=== PATIENT | male | born 2000 | race Caucasian/White ===

== ENCOUNTER 2023-04-06 16:17 | Inpatient (IN) | payer OTHER, SELFPAY ==
[2023-04-06 16:27] VITALS: BP 153/91; PULSE 116; RESP 18; TEMP 37.3; O2SAT 99; BMI 20.1
--- NOTE | 2023-04-06 16:41 | CT_ITS ---
The [address] [address] Patient Name: AMANDEEP MARTÍNEZ MRN: [id number] date: 2000 Sex: M Assigned Patient Location: ER Current Patient Location: ED.MAIN Accession/Order Number: [id number] Exam Date: 04/06/2023 18:02 Report Date: 04/06/2023 19:31 At the request of: DORINDA FIELD Procedure: CT abdomen pelvis w con EXAM: CT SCAN ABDOMEN AND PELVIS WITH IV CONTRAST DATE: 04/06/2023 6:02 PM EDT HISTORY: rectal abscess in a 22-year-old male with swelling and pain in his rectum towards the right side for the past 3 days. COMPARISON: CT dated 07/11/2020. TECHNIQUE: CT examination of the abdomen and pelvis was performed following the intravenous administration of IV contrast. CT dose lowering techniques were used, to include: automated exposure control, adjustment for patient size, and/or use of iterative reconstruction. Contrast: 100 ml Omnipaque 300 FINDINGS: Medical Front Desk Specialist/ Lines and Tubes: Two-view gold wheel blocker and polisher demonstrates a nonobstructive bowel gas pattern with further evaluation limited due to gold wheel blocker and polisher technique Lower Chest: Normal Free Air: None. Liver: Normal Gallbladder: Normal Common Bile Duct: Normal Pancreas: Normal Spleen: Normal Adrenal Glands: Right: Normal Left: Normal Kidneys: Right Kidney: Normal. Right Ureter: Normal. Left Kidney: Normal. Left Ureter: Normal. GI Tract: Distal esophagus in FOV: Normal. Stomach: Decompressed Small Bowel: Normal Appendix: Normal on coronal image 23 Large Bowel: Normal Mesentery/Peritoneum: Subcentimeter lymph nodes are seen in the mesentery. Vasculature: Aorta: Normal. IVC: Normal. Ernesto Vein: Normal. Retroperitoneum: Subcentimeter lymph nodes Abdominal/Pelvic Wall: There is a complex fluid collection with minimal rim enhancement seen within the right medial peroneum soft tissues that measures 65 mm x 93 mm x 107 mm Bladder: Within normal limits for the amount of distention. Reproductive: Prostate measures within normal with prominent vessels Musculoskeletal: Normal Free Fluid: None. CT/CT abdomen pelvis w con IMPRESSION: Complex fluid collection within the soft tissues of the right medial peroneum concerning for abscess. No subcutaneous air. However, developing Barak's disease not excluded. Surgical consultation recommended. Electronically authenticated by: JLUIS DIAS Date: 04/06/2023 19:31
--- NOTE | 2023-04-06 16:47 | PC.NURSE ---
Area next to rectum appears like a abscess. Pt c/o pain to this area. DR assessment complete with RN DO at bedside
[2023-04-06 16:55] LABS: Basophils Percent Auto 0.2 % (0.2-2.0); Eosinophils Percent Auto 0.2 % (0.9-7.0); Hematocrit 44.9 % (42.0-54.0); Hemoglobin 14.7 g/dL (14.0-18.0); Immature Granulocytes Abs Auto 0.08 10^3/uL (0.00-0.03); Immature Granulocytes Pct Auto 0.5 % (0.0-0.5); Lymphocytes Absolute Auto 1.2 10^3/uL (1.2-3.8); Lymphocytes Percent Auto 6.8 % (20.5-60.0); Mean Corpuscular HGB Conc 32.7 g/dL (29.9-35.2); Mean Corpuscular Hemoglobin 28.3 pg (25.9-34.0); Mean Corpuscular Volume 86.5 fL (80.0-94.0); Mean Platelet Volume 9.8 fL (9.5-13.5); Monocytes Absolute Auto 1.5 10^3/uL (0.3-0.8); Monocytes Percent Auto 8.2 % (1.7-12.0); Neutrophils Absolute Auto 14.9 10^3/uL (1.4-6.5); Neutrophils Percent Auto 84.1 % (43.0-75.0); Platelet Count 400 10^3/uL (150-450); Red Blood Count 5.19 10^6/uL (4.70-6.10); Red Cell Distribution Width 13.2 % (11.0-15.0); White Blood Count 17.7 10^3/uL (4.0-11.0)
[2023-04-06 17:07] LABS: INR 1.16; Prothrombin Time 12.2 sec (9.0-11.6)
[2023-04-06 17:08] LABS: Alanine Aminotransferase 20 U/L (16-63); Albumin Globulin Ratio 0.7; Albumin Level 3.5 g/dL (3.4-5.0); Alkaline Phosphatase 74 U/L (46-116); Anion Gap 13.3; Aspartate Amino Transferase 8 U/L (15-37); Bilirubin Total 0.8 mg/dL (0.2-1.0); Calcium 9.4 mg/dL (8.5-10.1); Carbon Dioxide 28.2 mmol/L (21.0-32.0); Chloride 99 mmol/L (98-107); Estimated GFR (African America >60 (>=60); Estimated GFR (Non-African Ame >60 (>=60); Glucose 109 mg/dL (74-106); Potassium 3.5 mmol/L (3.5-5.1); Sodium 137 mmol/L (136-145); Total Protein 8.5 g/dL (6.4-8.2)
[2023-04-06 17:11] LABS: Lactate/Lactic Acid 1.5 mmol/L (0.4-2.0)
[2023-04-06] MEDS: FAMOTIDINE/PF 20 MG/2 ML VIAL IV (17:22)
[2023-04-06] MEDS: KETOROLAC TROMETHAMINE 30 MG/ML VIAL IVP (17:22)
[2023-04-06] MEDS: 0.9 % SODIUM CHLORIDE 1,000 ML 1000 ML IV (17:22)
--- NOTE | 2023-04-06 17:22 | ED.SKABFB1 ---
HPI - Skin/Abscess/Foreign Bdy General Chief complaint: Skin/Abscess/Foreign Body Stated complaint: Rectal Bleed Time Seen by Provider: 04/06/23 16:33 Source: patient Mode of arrival: walk-in Limitations: no limitations History of Present Illness HPI narrative: Coming to the ER with a abscess to his right buttock area that been going on at least for the last few days it was noted that the patient initially presented with a rectal bleeding after having a bowel movement today although he mentioned he was not straining The patient mentioned that this pain has been going on at least for few days mostly the last Saturday which is more than a week And he also mentioned that there was no fever or chills but he did not eat all day because he does not feel like eating he also mentioned that he denies any abdominal pain nausea vomiting The patient have a history of hemorrhoids Related Data Home Medications Medication Instructions Recorded Confirmed No Known Home Medications 04/06/23 04/06/23 Allergies Allergy/AdvReac Type Severity Reaction Status Date / Time No Known Drug Allergies Allergy Verified 04/06/23 16:33 Review of Systems ROS Status of ROS 10 or more systems reviewed and unremarkable except as noted in history and below [facility] Social History Smoking status: Current every day smoker Exam Narrative Exam Narrative: Nurses notes and vital signs reviewed and patient is not hypoxic. General: Well-appearing and in no apparent distress. Skin: Warm, dry, no pallor noted. No rash. Head: Normocephalic, atraumatic. Neck: Supple, non-tender. Eye: Pupils are equal, round and EOMI. No scleral icterus. Ears, Nose, Mouth, and Throat: TM are clear, no nasal mucosal hypertrophy. Oral mucosa is moist, no posterior oropharynx erythema, uvula is mid-line Cardiovascular: Regular Rate and Rhythm without murmur, gallop or rub. Respiratory: No accessory muscle use or respiratory distress. Lungs are clear to auscultation, no wheezing, rales or rhonchi Chest Wall: no tenderness Back: No midline thoracic or lumbar vertebral tenderness. No CVA tenderness Musculoskeletal: normal ROM, no calf or popliteal tenderness, no lower extremity edema/swelling GI: Abdomen is soft, non-distended. Normal bowel sounds. No masses appreciated. No tenderness to palpation. No rebound, guarding, or rigidity noted. The patient examination of the buttock area showed that he have a severe redness and induration of the right buttock area almost measuring 12 cm x 7 cm and the patient is very tender and there is induration there is no fluctuation that is suspected The patient rectal exam shows no bleeding and there is no tenderness upon rectal evaluation no induration Neurological: A&O x4. No cranial nerve dysfunction observed. No truncal ataxia. Moves all extremities. Sensation intact. Psychiatric: Cooperative and interactive. Normal mood and affect. Constitutional Vital Signs, click to edit/add: Last Vital Signs Temp 99.1 F 04/06/23 16:27 Pulse 116 H 04/06/23 16:27 Resp 18 04/06/23 16:27 BP 153/91 H 04/06/23 16:27 Pulse Ox 99 04/06/23 16:27 O2 Del Method Room Air 04/06/23 16:47 Course Vital Signs Vital signs: Vital Signs Temperature 99.1 F 04/06/23 16:27 Pulse Rate 116 H 04/06/23 16:27 Respiratory Rate 18 04/06/23 16:27 Blood Pressure 153/91 H 04/06/23 16:27 Pulse Oximetry 99 04/06/23 16:27 Temperature 99.1 F 04/06/23 16:27 Pulse Rate 116 H 04/06/23 16:27 Respiratory Rate 18 04/06/23 16:27 Blood Pressure 153/91 H 04/06/23 16:27 Pulse Oximetry 99 04/06/23 16:27 Oxygen Delivery Method Room Air 04/06/23 16:47 MDM - Skin/Abscess/Foreign Bdy MDM Narrative Medical decision making narrative: The patient CBC shows leukocytosis he had Zosyn started and his chemistry was within normal his lactic acid is not elevated initially the patient did not want the IV but I convinced him that he is can need an IV antibiotic and he agreed the patient also was provided with Toradol On examination of the buttock area I could not feel any fluctuation that need to be drained and the patient definitely have infection of the area and cellulitis but the CAT scan was obtained to see how deep or there is any fluid collection that need to be drained pt care was transferred to dr Nina awaiting Ct result pt provided with Zosyn in ED and Toradol Lab Data Labs: Lab Results 04/06/23 Range/Units 16:48 WBC 17.7 H (4.0-11.0) 10^3/uL RBC 5.19 (4.70-6.10) 10^6/uL Hgb 14.7 (14.0-18.0) g/dL Hct 44.9 (42.0-54.0) % MCV 86.5 (80.0-94.0) fL MCH 28.3 (25.9-34.0) pg MCHC 32.7 (29.9-35.2) g/dL RDW 13.2 (11.0-15.0) % Plt Count 400 (150-450) 10^3/uL MPV 9.8 (9.5-13.5) fL Neut % (Auto) 84.1 H (43.0-75.0) % Lymph % (Auto) 6.8 L (20.5-60.0) % [place] % (Auto) 8.2 (1.7-12.0) % Eos % (Auto) 0.2 L (0.9-7.0) % Baso % (Auto) 0.2 (0.2-2.0) % Neut # (Auto) 14.9 H (1.4-6.5) 10^3/uL Lymph # (Auto) 1.2 (1.2-3.8) 10^3/uL [place] # (Auto) 1.5 H (0.3-0.8) 10^3/uL Eos # (Auto) 0.0 (0.0-0.7) 10^3/uL Baso # (Auto) 0.0 (0.0-0.1) 10^3/uL Abs Immat Gran (auto) 0.08 H (0.00-0.03) 10^3/uL Imm/Tot Granulo (auto) 0.5 (0.0-0.5) % PT 12.2 H (9.0-11.6) sec INR 1.16 Sodium 137 (136-145) mmol/L Potassium 3.5 (3.5-5.1) mmol/L Chloride 99 (98-107) mmol/L Carbon Dioxide 28.2 (21.0-32.0) mmol/L Anion Gap 13.3 BUN 16.0 (7.0-18.0) mg/dL Creatinine 1.14 (0.70-1.30) mg/dL Est GFR ( Amer) >60 (>=60) Est GFR (Non-Af Amer) >60 (>=60) BUN/Creatinine Ratio 14.0 Glucose 109 H (74-106) mg/dL Lactate 1.5 (0.4-2.0) mmol/L Calcium 9.4 (8.5-10.1) mg/dL Total Bilirubin 0.8 (0.2-1.0) mg/dL AST 8 L (15-37) U/L ALT 20 (16-63) U/L Alkaline Phosphatase 74 (46-116) U/L Total Protein 8.5 H (6.4-8.2) g/dL Albumin 3.5 (3.4-5.0) g/dL Globulin 5.0 g/dL Albumin/Globulin Ratio 0.7 Acetaminophen <2.0 L (10.0-30.0) ug/mL Discharge Plan Discharge Patient Disposition: Still a Patient
[2023-04-06 17:34] LABS: Acetaminophen <2.0 ug/mL (10.0-30.0)
[2023-04-06] MEDS: PIPERACILLIN SODIUM/TAZOBACTAM 3.375 GM in 0.9 % SODIUM CHLORIDE 50 ML IV (18:20)
[2023-04-06 18:53] VITALS: BP 148/74; PULSE 89; RESP 16; O2SAT 99
[2023-04-06] MEDS: KETOROLAC TROMETHAMINE 30 MG/ML VIAL 15 MG IVP (20:56)
[2023-04-06] MEDS: ONDANSETRON PF 4 MG/2 ML VIAL IV (20:56)
[2023-04-06] MEDS: MORPHINE SULFATE 4 MG/ML VIAL IV (20:57)
[2023-04-06 21:42] VITALS: BP 131/78; PULSE 76; PULSE 84; RESP 16; RESP 18; TEMP 36.8; O2SAT 96; O2SAT 97; BMI 21.0
[2023-04-07] VITALS (17 sets, daily range): BP systolic 106–142; BP diastolic 61–94; PULSE 59–105; RESP 11–21; TEMP 36.6–37.1; O2SAT 96–100
--- NOTE | 2023-04-07 | W.PM.TELEPN ---
Progress Note: Subjective Subjective Interval history: CC: Perirectal abscess HPI: This is a very pleasant 22 years old male who presents with above complaints. Patient stating that over the course of the last 10 days he felt some bulging and discomfort in his perineal area. He thought its hemorrhoid which he had in the past. He tried to use Preparation H and Anusol cream/suppository without much relief. Patient did mention her with some chills. Minimal amount of blood with the bowel movements which he attributed to hemorrhoids . Patient endorses diagnosis of Crohn's disease few years ago. Never took any medications for that. Evaluation in the emergency room revealed a large (9 cm) perirectal abscess. Dr. Lauren, consulted and planning to perform I and D in the morning. Exam Narrative Exam Narrative: ROS: 1.General: no fever, chills, not in distress 2.HEENT: no MCBRIDE, no blurry vision, no swallow problems, no nasal congestion, no sore throat 3.Pulmonary: no cough, SOB, wheezes 4.CVS: no CP, no palpitations, no GIPSON, no SOB, no intermittent claudication 5.GI: no nausea, vomiting or diarrhea, no abdominal pain, no constipation, no hematemesis or hematochezia 6.: no renal colic, no hematuria, urinary frequency or urgency 7.Extremities: no edema 8.Neurological: no dizziness, vertigo, double or blurry vision, no no focal weakness, no paresthesia, no swallow or speech problems 9.Musculosceletal: no joint pains, no joint swelling, no back pain 10.Dermatological: no skin rashes, no lesions, no pruritus 11.Hematological: no bleeding, no hx/o clots 12.Endocrinological: no heat/cold intolerance, no hx/o diabetes 13.Psychiatric: no suicidal or homicidal thoughts Physical Exam: Not in distress, pleasant, lucid, cooperative, Head - atraumatic, eyes - pupils equal, round, reactive to light, extra ocular movement intact, MMM Neck - supple, thyroid not enlarged, LN not palpated Lungs - clear to auscultation, no dullness on percussion CVS - heart sounds S1, S2, no additional murmurs gallop, regular rate and rhythm Gastrointestinal?abdomen is soft, non-tender, non-distended, no organomegaly, positive bowel sounds Extremities no clubbing, cyanosis or edema Neurological?cranial nerve II?XII grossly intact, no meningeal signs, no cerebellar signs, no sensory deficit Musculoskeletal - joints, no effusions, ROM preserved Dermatological - the skin dry, warm, no rashes Psychiatric?patient is AAO X3, patient has normal affect Constitutional Vital Signs, click to edit/add: Last Vital Signs Temp 98.3 F 04/06/23 21:42 Pulse 84 04/06/23 21:42 Resp 18 04/06/23 21:42 BP 131/78 04/06/23 21:42 Pulse Ox 97 04/06/23 21:42 O2 Del Method Room Air 04/06/23 21:42 Progress Note: Objective Labs Labs: Short CBC 04/06/23 Range/Units 16:48 WBC 17.7 H (4.0-11.0) 10^3/uL Hgb 14.7 (14.0-18.0) g/dL Hct 44.9 (42.0-54.0) % Plt Count 400 (150-450) 10^3/uL BMP 04/06/23 16:48 Sodium 137 Potassium 3.5 Chloride 99 Carbon Dioxide 28.2 BUN 16.0 Creatinine 1.14 Glucose 109 H Calcium 9.4 Liver Function 04/06/23 Range/Units 16:48 Total Bilirubin 0.8 (0.2-1.0) mg/dL AST 8 L (15-37) U/L ALT 20 (16-63) U/L Alkaline Phosphatase 74 (46-116) U/L Albumin 3.5 (3.4-5.0) g/dL Progress Note: A&P Assessment and Plan (1) Perirectal abscess: Assessment and Plan: At mid to medical floor Continue Zosyn Symptoms controlled Going to keep n.p.o. past midnight for upcoming surgical procedure by Dr. Lauren (consulted by emergency room) (2) Crohn's disease: Assessment and Plan: History of Crohn's disease?diagnosed few years ago, never been treated. Suspect current perirectal abscess related to Crohn's. Patient can benefit from referral to cuff setter overlock to establish proper treatment plan Plan END: As the provider for the telehealth service, I attest that I introduced myself to the patient, provided my credentials, disclosed by location and determined that based on a review of the patient's chart and discussion with members of the patient's treatment team, telemedicine via real-time, 2 way, and interactive audio and video platform is an appropriate and effective means of providing the service. ?The patient and I mutually agree this visit is appropriate for telemedicine. ?The virtual encounter was taken place from? [place], [place]. ?The encounter took approximately 35 minutes. ?The nurse was present during the entire time and I was able to move the stethoscope in appropriate directions. ?The patient was evaluated at the Hospital ? Portions of this note may be dictated using true[employer] voice recognition software. Variances in spelling and vocabulary are possible and unintentional. Not all errors may be caught and/or corrected. Please notify the author if any discrepancies are noted and/or if the meaning of any statement is unclear.? ? Patient verbally consented for treatment via video visit with patient currently located at the [facility] and provider located in [place]. Telemedicine Attestation Telemedicine Attestation I conducted this encounter from [facility]] via secure live, [id number] video conference with the patient, located at [facility] with [perirectal abscess]. Prior to the interview, the risks and benefits of telemedicine were discussed with the patient and verbal consent was obtained.
[2023-04-07] MEDS: 0.9 % SODIUM CHLORIDE 1,000 ML 100 ML IV (01:18)
[2023-04-07] MEDS: PIPERACILLIN SODIUM/TAZOBACTAM 3.375 GM in 0.9 % SODIUM CHLORIDE 50 ML IV ×3 (04:28→18:43)
[2023-04-07] MEDS: MORPHINE SULFATE 2 MG/ML SYRINGE IV (04:28)
[2023-04-07 05:30] LABS: Basophils Percent Auto 0.2 % (0.2-2.0); Eosinophils Absolute Auto 0.1 10^3/uL (0.0-0.7); Eosinophils Percent Auto 0.3 % (0.9-7.0); Hematocrit 40.7 % (42.0-54.0); Hemoglobin 13.2 g/dL (14.0-18.0); Immature Granulocytes Abs Auto 0.08 10^3/uL (0.00-0.03); Immature Granulocytes Pct Auto 0.5 % (0.0-0.5); Lymphocytes Absolute Auto 0.9 10^3/uL (1.2-3.8); Lymphocytes Percent Auto 5.1 % (20.5-60.0); Mean Corpuscular HGB Conc 32.4 g/dL (29.9-35.2); Mean Corpuscular Hemoglobin 28.6 pg (25.9-34.0); Mean Corpuscular Volume 88.1 fL (80.0-94.0); Mean Platelet Volume 10.3 fL (9.5-13.5); Monocytes Absolute Auto 1.6 10^3/uL (0.3-0.8); Monocytes Percent Auto 9.1 % (1.7-12.0); Neutrophils Absolute Auto 14.4 10^3/uL (1.4-6.5); Neutrophils Percent Auto 84.8 % (43.0-75.0); Platelet Count 360 10^3/uL (150-450); Red Blood Count 4.62 10^6/uL (4.70-6.10); Red Cell Distribution Width 13.3 % (11.0-15.0)
[2023-04-07 05:38] LABS: Anion Gap 12.6; BUN Creatinine Ratio 16.2; Calcium 9.3 mg/dL (8.5-10.1); Chloride 98 mmol/L (98-107); Estimated GFR (African America >60 (>=60); Estimated GFR (Non-African Ame >60 (>=60); Glucose 99 mg/dL (74-106); Potassium 3.6 mmol/L (3.5-5.1); Sodium 133 mmol/L (136-145)
[2023-04-07 05:53] LABS: Partial Thromboplastin Time 33.3 sec (22.3-36.2); Prothrombin Time 11.6 sec (9.0-11.6)
--- NOTE | 2023-04-07 07:34 | PM.GSCN ---
History of Present Illness Consult details Consult date: 04/07/23 Reason for consult: other (Perirectal abscess) Requesting physician: Chuy Nina Narrative: Patient is a 22-year-old otherwise healthy young white male, who is seen in consultation at the request of the emergency department physician Dr. Chuy Nina, and the attending hospitalist Dr. Shaikh Mejia. Consultation is requested for surgical evaluation and management of an acute perirectal abscess. The patient is seen in surgical consultation at 0645 hrs. 04/07/2023. In the course of consultation, the patient's electronic medical record is comprehensively reviewed. The patient is interviewed and examined. The results of all available laboratory tests are reviewed and noted. A diagnostic contrast-enhanced CT scan examination of the abdomen and pelvis is personally viewed and interpreted. According to the patient, he was given a diagnosis of Crohn's disease following a colonoscopic examination back in 2019. At that time, he was seen by a director of graduate medical education and placed on suppressive therapy. By the patient's report, he has been off of medication now for the past 1.5 years and doing well without any significant flareups. Approximately 10 to 12 days ago, the patient developed some right-sided perianal discomfort followed by soft tissue swelling along the medial aspect of his right buttock. Initially, the patient thought that this process was due to a 'hemorrhoid'. The patient attempted to self treat with Anusol and Preparation H, without relief. Through the past week, the patient has experienced worsening pain and soft tissue swelling. He denies any associated fever or chills. Throughout the course of this illness, patient has been able to maintain dietary intake. He states that his bowels have been moving regularly and that he has not had any issues with diarrhea or loose stools. Patient reports no melena or gross hematochezia. He has seen some streaks of blood on the toilet tissue however when he wipes. Patient denies any issues with urinary retention. He reports no dysuria, hematuria, urgency, or urinary frequency. With progression of symptoms, the patient presented to the emergency department at [facility], on the evening of 04/06/2023. The patient was seen and evaluated by Dr. Dorinda Field and Dr. Chuy Nina. Examination revealed a large, softball sized, fluctuant abscess with associated cellulitis, along the medial aspect of the right gluteus. The patient was found to have a low-grade fever. White blood cell count returned elevated at 17,700 with a left shift in the white cell differential. Diagnostic contrast-enhanced CT scan examination of the abdomen and pelvis 04/06/2023, shows a complex fluid collection with minimal rim enhancement involving the medial aspect of the perineum and gluteus on the right. The fluid collection measures 6.5 cm x 9.3 cm x 10.7 cm. There is no subcutaneous air, or any gas seen dissecting along the fascial planes of the perineum, gluteus, or ventral abdominal wall. There is no evidence of scrotal involvement. The bladder does not appear overly distended. There is no free fluid within the pelvis. Clinically, this patient enjoys good health. Aside from this apparent diagnosis of Crohn's disease back in 2019, there are no chronic medical conditions for which this patient is being treated. Patient is not allergic to any known medications. He does not take any prescription medications. The patient is a current everyday cigarette smoker. There is no history of drug or alcohol abuse. Aside from the colonoscopy in 2019, this patient has not had any other prior surgical procedures. Review of Systems ROS Narrative 12 point review of systems is negative or otherwise noncontributory to the problem under evaluation separate as documented in the [facility] [place] Medical History Crohn's disease ?K50.90 - Crohn's disease, unspecified, without complications (ICD-10) Family History Grandmother Family history of myocardial infarction Social History Smoking status: Current every day smoker Do you use any of these nicotine containing products: vaping products Non-prescribed substance use: cannabis (any form) Previous occupational history: [employer] Highest level of school completed/degree received: high school graduate Are you now , , , , never or living with a partner: never In a typical week, how many times do you talk on the telephone with family, friends, or neighbors: 3 or more times per week How often do you get together with friends or relatives: 3 or more times per week How often do you attend mormonism or moravian services: never Do you belong to any clubs or organizations such as mormonism groups unions, fraternal or athletic groups, or school groups: no Total score: 1 Score interpretation: A score of less than or equal to 1 indicates the most socially isolated. Little interest or pleasure in doing things: several days Feeling down, depressed, or hopeless: several days Feel stressed/tense/nervous/anxious/difficulty sleeping: rather much Life stressors: recent of family or friend Life stressor details: loss of step dad, mom, grandparent since 2018 Do you think of yourself as: straight/heterosexual Gender Identity: male Meds Home Medications and Allergies Home Medications Medication Instructions Recorded Confirmed Type No Known Home Medications 04/06/23 04/06/23 History Allergies Allergy/AdvReac Type Severity Reaction Status Date / Time No Known Drug Allergies Allergy Verified 04/06/23 16:33 Exam Constitutional Vital Signs, click to edit/add: Last Vital Signs Temp 98.5 F 04/07/23 05:33 Pulse 93 H 04/07/23 05:33 Resp 18 04/07/23 05:33 BP 106/66 04/07/23 05:33 Pulse Ox 96 04/07/23 05:33 O2 Del Method Room Air 04/07/23 05:33 Other: Well-developed, well-nourished, otherwise healthy young white male. The patient is seen lying in a hospital bed on his left side, in obvious right-sided gluteal and perineal distress. HENMT Other: Head normocephalic and atraumatic. Pupils equally round and reactive to light. Extraocular movements intact. Nasal and oropharynx are clear without erythema or exudate. Mucous membranes are moist. There are no oral or pharyngeal mass lesions. Neck & C-Spine Other: Trachea midline. Carotid pulses 2+ bilaterally. No thyromegaly. No jugular venous distention. Chest Other: Unlabored respirations. Equal chest wall expansion bilaterally. Lungs are clear to auscultation bilaterally without rales, wheezes, or rhonchi. Cardio Other: Heart regular rate and rhythm. Normal S1 and S2. No murmur. GI Other: The abdomen is scaphoid and soft. There is no distention or tympany. No hepatosplenomegaly is detected. An intra-abdominal mass is not appreciated. No pain or tenderness is elicited on palpation in any quadrant. The patient does not guard. There is no rebound tenderness. Flanks are nontender. There is no evidence of ventral wall hernia. Other: Normal male external genitalia. Examination of the gluteal and perineal region shows marked soft tissue swelling and induration of the perineum and medial aspect of the gluteus, to the right of the midline. The skin overlying this area exhibits marked erythema with associated cellulitis. The underlying abscess is fluctuant and exquisitely tender. The dimensions of the abscess correlate with the CT description. And is intact over the abscess and there is no evidence of spontaneous drainage or rupture. No crepitus or subcutaneous emphysema is identified. The scrotum is uninvolved. At present, the patient is unable to tolerate a digital rectal examination, and this evaluation will be performed under anesthesia. Extremity Other: Normal range of motion in all extremities x4. No clubbing, cyanosis, or dependent lower extremity edema. Neuro Other: Alert and oriented to time, place, and person. Neurologic status is grossly intact and without obvious focal deficits. Psych Other: Pleasant and conversant. Normal mood and affect. Good insight and understanding. Results Labs Labs: Abnormal lab results 04/06/23 04/06/23 Range/Units 04:04 16:48 WBC 17.0 H 17.7 H (4.0-11.0) 10^3/uL RBC 4.62 L (4.70-6.10) 10^6/uL Hgb 13.2 L (14.0-18.0) g/dL Hct 40.7 L (42.0-54.0) % Neut % (Auto) 84.8 H 84.1 H (43.0-75.0) % Lymph % (Auto) 5.1 L 6.8 L (20.5-60.0) % Eos % (Auto) 0.3 L 0.2 L (0.9-7.0) % Neut # (Auto) 14.4 H 14.9 H (1.4-6.5) 10^3/uL Lymph # (Auto) 0.9 L (1.2-3.8) 10^3/uL [place] # (Auto) 1.6 H 1.5 H (0.3-0.8) 10^3/uL Abs Immat Gran (auto) 0.08 H 0.08 H (0.00-0.03) 10^3/uL PT 12.2 H (9.0-11.6) sec Sodium 133 L (136-145) mmol/L BUN 19.0 H (7.0-18.0) mg/dL Glucose 109 H (74-106) mg/dL AST 8 L (15-37) U/L Total Protein 8.5 H (6.4-8.2) g/dL Acetaminophen <2.0 L (10.0-30.0) ug/mL Diabetes panel 04/06/23 04/06/23 Range/Units 04:04 16:48 Sodium 133 L 137 (136-145) mmol/L Potassium 3.6 3.5 (3.5-5.1) mmol/L Chloride 98 99 (98-107) mmol/L Carbon Dioxide 26.0 28.2 (21.0-32.0) mmol/L BUN 19.0 H 16.0 (7.0-18.0) mg/dL Creatinine 1.17 1.14 (0.70-1.30) mg/dL Glucose 99 109 H (74-106) mg/dL Calcium 9.3 9.4 (8.5-10.1) mg/dL AST 8 L (15-37) U/L ALT 20 (16-63) U/L Alkaline Phosphatase 74 (46-116) U/L Total Protein 8.5 H (6.4-8.2) g/dL Albumin 3.5 (3.4-5.0) g/dL Calcium panel 04/06/23 04/06/23 Range/Units 04:04 16:48 Calcium 9.3 9.4 (8.5-10.1) mg/dL Albumin 3.5 (3.4-5.0) g/dL Pituitary panel 04/06/23 04/06/23 Range/Units 04:04 16:48 Sodium 133 L 137 (136-145) mmol/L Potassium 3.6 3.5 (3.5-5.1) mmol/L Chloride 98 99 (98-107) mmol/L Carbon Dioxide 26.0 28.2 (21.0-32.0) mmol/L BUN 19.0 H 16.0 (7.0-18.0) mg/dL Creatinine 1.17 1.14 (0.70-1.30) mg/dL Glucose 99 109 H (74-106) mg/dL Calcium 9.3 9.4 (8.5-10.1) mg/dL Adrenal panel 04/06/23 04/06/23 Range/Units 04:04 16:48 Sodium 133 L 137 (136-145) mmol/L Potassium 3.6 3.5 (3.5-5.1) mmol/L Chloride 98 99 (98-107) mmol/L Carbon Dioxide 26.0 28.2 (21.0-32.0) mmol/L BUN 19.0 H 16.0 (7.0-18.0) mg/dL Creatinine 1.17 1.14 (0.70-1.30) mg/dL Glucose 99 109 H (74-106) mg/dL Calcium 9.3 9.4 (8.5-10.1) mg/dL Total Bilirubin 0.8 (0.2-1.0) mg/dL AST 8 L (15-37) U/L ALT 20 (16-63) U/L Alkaline Phosphatase 74 (46-116) U/L Total Protein 8.5 H (6.4-8.2) g/dL Albumin 3.5 (3.4-5.0) g/dL All other labs normal. Imaging Abdomen CT scan report/results: report reviewed and image reviewed Additional studies: Patient: AMANDEEP MARTÍNEZ MR#: [id number] : 2000 Acct:[id number] Age/Sex: 22 / M ADM Date: 04/06/23 Loc: ER Attending Dr: Ordering Physician: Dorinda Field Date of Service: 04/06/23 Procedure(s): CT abdomen pelvis w con Accession Number(s): [id number] cc: Physician,Non-Staff María Elena~ The [address] [address] Patient Name: AMANDEEP MARTÍNEZ MRN: [id number] date: 2000 Sex: M Assigned Patient Location: ER Current Patient Location: ED.MAIN Accession/Order Number: [id number] Exam Date: 04/06/2023 18:02 Report Date: 04/06/2023 19:31 At the request of: DORINDA FIELD Procedure: CT abdomen pelvis w con EXAM: CT SCAN ABDOMEN AND PELVIS WITH IV CONTRAST DATE: 04/06/2023 6:02 PM EDT HISTORY: rectal abscess in a 22-year-old male with swelling and pain in his rectum towards the right side for the past 3 days. COMPARISON: CT dated 07/11/2020. TECHNIQUE: CT examination of the abdomen and pelvis was performed following the intravenous administration of IV contrast. CT dose lowering techniques were used, to include: automated exposure control, adjustment for patient size, and/or use of iterative reconstruction. 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 Liver: Normal Gallbladder: Normal Common Bile Duct: Normal Pancreas: Normal Spleen: Normal Adrenal Glands: Right: Normal Left: Normal Kidneys: Right Kidney: Normal. Right Ureter: Normal. Left Kidney: Normal. Left Ureter: Normal. GI Tract: Distal esophagus in FOV: Normal. Stomach: Decompressed Small Bowel: Normal Appendix: Normal on coronal image 23 Large Bowel: Normal Mesentery/Peritoneum: Subcentimeter lymph nodes are seen in the mesentery. Vasculature: Aorta: Normal. IVC: Normal. Ernesto Vein: Normal. Retroperitoneum: Subcentimeter lymph nodes Abdominal/Pelvic Wall: There is a complex fluid collection with minimal rim enhancement seen within the right medial peroneum soft tissues that measures 65 mm x 93 mm x 107 mm Bladder: Within normal limits for the amount of distention. Reproductive: Prostate measures within normal with prominent vessels Musculoskeletal: Normal Free Fluid: None. CT/CT abdomen pelvis w con IMPRESSION: Complex fluid collection within the soft tissues of the right medial peroneum concerning for abscess. No subcutaneous air. However, developing Barak's disease not excluded. Surgical consultation recommended. Electronically authenticated by: JLUIS DIAS Date: 04/06/2023 19:31 Assessment and Plan Assessment and Plan (1) Perirectal abscess: (2) Cellulitis of buttock, right: (3) Crohn's disease: Plan 1) Emergency incision and drainage of a perirectal abscess 04/07/2023 ? Hospital inpatient ? General endotracheal anesthesia 2) NPO / IV fluid hydration preoperatively 3) Continue IV Zosyn every 8 hours 4) Anticipate a 24 to 48-hour length of stay postoperatively for continued administration of IV antibiotics Discussion: The patient is counseled that his clinical presentation, physical examination, and supporting laboratory and CT scan findings, are all consistent with the diagnosis of an acute perirectal abscess. Although it is difficult to discern by CT whether the origin of this abscess is perirectal or strictly gluteal, the fact that this patient carries a diagnosis of regional enteritis of Crohn's favors a perirectal etiology. The patient is counseled that regardless of the source, he will need to reestablish care with his director of graduate medical education to determine whether or not his disease is active and whether he should be restarted on a no suppressive medication. Patient is advised that antibiotics alone are not sufficient treatment of this abscess, and that the abscess requires urgent incision and drainage. The indications, risks, benefits, and potential complications of incision and drainage of a perirectal abscess are reviewed in detail with the patient. The patient is counseled that if the origin of this abscess is perirectal and related to anorectal Crohn's, approximately 1/3-2/3 of patients undergoing I&D will develop a subsequent anorectal fistula, necessitating subsequent surgical intervention. The patient understands that primary management of this condition necessitates incision and drainage. Following drainage, time will determine the possible outcomes and whether or not additional intervention will be required. At the conclusion of this morning's consultation, the patient indicates his understanding of the proposed operative plan of management and request that we proceed as soon as possible with incision and drainage of the perirectal abscess. The on-call surgical team was notified of the need to proceed with this case on an emergency basis 04/07/2023. Once that team has been assembled the patient will be taken directly to the operative suite for incision and drainage of a perirectal abscess under general endotracheal anesthesia. I appreciate the opportunity to have seen this patient in consultation and to have the privilege of participating in his surgical care.
[2023-04-07] MEDS: HYDROMORPHONE HCL 0.5 MG/0.5 ML SYRINGE 0.4 MG IV (09:58)
[2023-04-07] MEDS: OXYCODONE HCL 5 MG TABLET PO (10:20)
--- NOTE | 2023-04-07 10:38 | PM.GSPRC ---
Date of procedure: 04/07/23 Indications for Procedure: Patient is a 22-year-old otherwise healthy young white male, who was seen in consultation surgical evaluation and management of an acute perirectal/ischiorectal abscess. According to the patient, he had been given a diagnosis of Crohn's disease following a colonoscopic examination back in 2019. At that time, he was seen by a swimming pool service technician and placed on suppressive therapy. By the patient's report, he discontinued his medication and has been off of treatment now for the past 1.5 years and doing well without any significant flare-ups. Approximately 10 to 12 days ago, the patient developed right-sided perianal discomfort followed by soft tissue swelling along the medial aspect of his right buttock. Initially, the patient thought that this process was due to a 'hemorrhoid'. The patient attempted to self treat with Anusol and Preparation H, without relief. Through the past week, the patient has experienced worsening pain and soft tissue swelling to the point where he is having difficulty both sitting and walking. He denies any associated fever or chills. Throughout the course of this illness, the patient has been able to maintain dietary intake. He states that his bowels have been moving regularly and that he has not had any issues with diarrhea or loose stools. The patient reports no melena or gross hematochezia but has been experiencing drainage of pus transanally with streaks of blood on the toilet tissue when he wipes. The patient denies any issues with urinary retention. He reports no dysuria, hematuria, urgency, or urinary frequency. With progression of symptoms, the patient presented to the emergency department at [facility], on the evening of 04/06/2023. Examination revealed a large, softball sized, fluctuant abscess with associated cellulitis along the perineum and medial aspect of the right gluteus, in proximity to the anus. The patient was found to have a low-grade fever. White blood cell count returned elevated at 17,700 with a left shift in the white cell differential. Diagnostic contrast-enhanced CT scan examination of the abdomen and pelvis 04/06/2023, shows a complex fluid collection with minimal rim enhancement involving the medial aspect of the perineum and gluteus on the right. The fluid collection measures 6.5 cm x 9.3 cm x 10.7 cm. There is no subcutaneous air, or any gas seen dissecting along the fascial planes of the perineum, gluteus, or ventral abdominal wall. There is no evidence of scrotal involvement. The bladder does not appear overly distended. There is no free fluid within the pelvis. Clinically, this patient enjoys good health. Aside from this apparent diagnosis of Crohn's disease back in 2019, there are no chronic medical conditions for which this patient is being treated. Patient is not allergic to any known medications. He does not take any prescription medications. The patient is a current everyday cigarette smoker. There is no history of drug or alcohol abuse. Aside from the colonoscopy in 2019, this patient has not had any other prior surgical procedures. The patient has been counseled that his clinical presentation, physical examination, and supporting laboratory and CT scan findings, are all consistent with the diagnosis of an acute perirectal/ischiorectal abscess. Although it is difficult to discern by CT whether this abscess originates from the anal canal or is whether it is strictly perineal/gluteal, the fact that this patient carries a diagnosis of regional enteritis of Crohn's favors a perirectal etiology. The patient has been advised that antibiotics alone are not sufficient treatment of this abscess, and that the abscess requires urgent incision and drainage. The indications, risks, benefits, and potential complications of incision and drainage of a perirectal abscess are reviewed in detail with the patient. The patient is counseled that if the origin of this abscess is perirectal and related to anorectal Crohn's, approximately 1/3-2/3 of patients undergoing I&D will develop a subsequent anorectal fistula, necessitating subsequent surgical intervention. The patient has indicated his understanding of the proposed operative plan of management, and has provided his informed written consent to proceed with incision and drainage of this perirectal abscess. Following intravenous fluid hydration and administration of a broad-spectrum intravenous antimicrobial agent, this patient is now taken emergently to the operative suite for incision and drainage of a perirectal/ischiorectal abscess. Pre-op diagnosis: Acute perirectal abscess (K61.1) Post-op diagnosis: other (Acute perirectal abscess involving the perineum, perirectal, and ischiorectal spaces (K61.1) Procedure: 1) Incision and drainage of ischiorectal/perirectal abscess (92594) 2) Surgical treatment of anal fistula including placement of a Seton (50967-66) Findings: 6.5 cm x 9.3 cm x 10.7 cm perirectal abscess involving the right perineal, perirectal, and ischiorectal spaces Anesthesia: General-LMA Surgeon: Prabhakar Lauren Procedure Summary: At 0840 hrs. 04/07/2023, the patient was taken to the operative suite where he was positioned supine on the operating room table. General laryngeal mask anesthesia was administered by Dr. Neil Taylor. This patient is classified as an ASA class I E anesthetic risk. Within 60 minutes prior to commencement of the operative case, this patient received Zosyn 3.375 mg IV in the empiric antimicrobial management of an acute perirectal abscess. DVT prophylaxis was maintained throughout the intraoperative course by the use of sequential pneumatic compression stockings. Following the satisfactory induction of general anesthesia, the patient was repositioned in a dorsolithotomy position. Nas stirrups were used for lithotomy. The body hair overlying this patient's perineum, perianal, and gluteal regions was removed using surgical clippers. Prior to skin preparation, a digital rectal examination was performed. With the patient under general anesthesia, marked laxity and sphincter tone was noted. Upon insertion of the examining finger, a copious amount of grossly purulent foul-smelling fluid drained transanally. This finding suggests the presence of an anorectal fistula that communicates directly with the abscess cavity. The right lateral rectal wall was felt to be bulging into the rectal lumen, secondary to pressure within the abscess cavity. There was no palpable mucosal mass lesion within reach of the examining finger. The perineum, gluteal regions bilaterally, and perianal region were all widely prepped using an iodine-based solution. The patient was draped in the normal fashion for incision and drainage of a perirectal abscess, using a Lingeman lithotomy drape. An appropriate timeout was performed in order to confirm the correct procedure to be conducted. The operative procedure commenced at 0905 hrs. An area of significant fluctuance was identified along the medial aspect of the right gluteus, in close proximity to the cleft and approximately 5 to 6 cm posterior and lateral to the anal canal. Choosing to enter the abscess cavity through this fluctuant region, a cruciate incision was made using a #11 scalpel. Upon entrance into the abscess cavity, there was an immediate efflux under pressure of grossly purulent, milky, chocolate colored, foul-smelling fluid tinged with blood. Swabs of this fluid were taken and submitted to the laboratory for both Gram stain and aerobic/anaerobic cultures. The remaining volume of fluid that had not drained spontaneously was expressed and suctioned from the cavity. The adipose tissue within the cavity exhibited evidence of saponification and pressure necrosis. The cavity was explored digitally in order to break up any internal loculations. Digital examination revealed the cavity to extend anteriorly along the perineum, to the base of the scrotum. Posteriorly, the abscess cavity extended deep into the gluteus and ischial rectal space. Medially, the abscess cavity abuts the lateral wall of the rectum. Using a hemostatic clamp, a fistulous communication between the cavity and the anterior midline of the rectum was identified. Given the presence of this anorectal fistula, fistulotomy was carried out by placement of a Silastic vessel loop as a non-cutting Seton. At this point, copious irrigation of the abscess cavity was carried out using multiple liters of sterile saline. Irrigations were continued until any necrotic debris had been flushed from the cavity and the effluent returned clear. Because of the greater than 10 cm diameter of the abscess cavity, and with extension of the cavity anteriorly along the perineum, it was elected to make a counterincision on the perineum adjacent to the base of the scrotum, and to bridge the cavity using a 1/4 inch Beba drain exiting through both the original cruciate incision and the perineal counterincision. The drain was secured to the skin at both ends using 2-0 silk suture. Additional irrigations were performed. The operative site was rendered hemostatic. A adolfo-pad and mesh panties were applied as dressing. The operative procedure was completed at 0938 hrs. At the completion of the procedure all sponge, needle, and instrument counts were correct. Estimated blood loss for the procedure was 30 mL. The patient tolerated incision and drainage of an ischio rectal/perirectal abscess with surgical management of an anal fistula by placement of a Seton, well. There were no operatively related complications. Patient was awakened and taken to the postanesthesia care unit in satisfactory condition. Following recovery from anesthesia this patient is to remain hospitalized as an inpatient until such time as all criteria for hospital discharge have been met. It is anticipated that this patient's postoperative length of stay will range between 24 to 48 hours for continued administration of intravenous antibiotics while awaiting identification of the infecting organism(s). Charter Coach Driver: BOBBI Jacobson Estimated blood loss (mL): 30 Specimens: Swabs of grossly purulent fluid for Gram stain and aerobic/anaerobic cultures Complications: No Pathology: none sent Condition: stable Disposition: floor (Hospital Inpatient-MedSur Unit)
--- NOTE | 2023-04-07 13:25 | P.HP_ITS ---
H&P: HPI History of Present Illness Chief complaint: Rectal pain/pressure Narrative: 22 y o male with hx of crohns disease (stopped medications/follow up for it one year ago) presented to ED last night with rectal pressure/pain, nausea. Symptoms were present for 1 week. He reports intermittent scant blood in stool. He thought he had hemorhhoids and was using OTC preparation H. W/u indicated complex rectal abscess for which he was taken to OR. Patient was seen post op and he reported feeling better and had no active complaints to offer. He was also noted to have anal fistula during operative exam. Review of Systems ROS Status of ROS 10 or more systems reviewed and unremarkable except as noted in history and below [facility] Medical History Crohn's disease ?K50.90 - Crohn's disease, unspecified, without complications (ICD-10) Family History Grandmother Family history of myocardial infarction Social History Smoking status: Current every day smoker Do you use any of these nicotine containing products: vaping products Non-prescribed substance use: cannabis (any form) Previous occupational history: [employer] Highest level of school completed/degree received: high school graduate Are you now , , , , never or living with a partner: never In a typical week, how many times do you talk on the telephone with family, friends, or neighbors: 3 or more times per week How often do you get together with friends or relatives: 3 or more times per week How often do you attend congregational or denominational services: never Do you belong to any clubs or organizations such as congregational groups unions, fraternal or athletic groups, or school groups: no Total score: 1 Score interpretation: A score of less than or equal to 1 indicates the most socially isolated. Little interest or pleasure in doing things: several days Feeling down, depressed, or hopeless: several days Feel stressed/tense/nervous/anxious/difficulty sleeping: rather much Life stressors: recent of family or friend Life stressor details: loss of step dad, mom, grandparent since 2018 Do you think of yourself as: straight/heterosexual Gender Identity: male Meds Home Medications and Allergies Home Medications Medication Instructions Recorded Confirmed Type No Known Home Medications 04/06/23 04/06/23 History Allergies Allergy/AdvReac Type Severity Reaction Status Date / Time No Known Drug Allergies Allergy Verified 04/06/23 16:33 Exam Constitutional Vital Signs, click to edit/add: Last Vital Signs Temp 98.7 F 04/07/23 10:57 Pulse 59 L 04/07/23 10:57 Resp 16 04/07/23 10:57 BP 142/87 H 04/07/23 10:57 Pulse Ox 96 04/07/23 10:57 O2 Del Method Room Air 04/07/23 10:57 O2 Flow Rate 8 04/07/23 09:49 Documenting provider has reviewed patient's vital signs: yes Common normals: no apparent distress and oriented x3 General appearance: cooperative HENMT Common normals: normocephalic and head/scalp atraumatic Head and scalp: normocephalic and atraumatic Eye Common normals: conjunctivae normal and no scleral icterus Conjunctiva: conjunctiva(e) normal Respiratory Common normals: normal respiratory effort and clear to auscultation bilaterally Effort & inspection: able to speak in complete sentences Auscultation: clear to auscultation bilaterally Cardio Common normals: regular rate, S1 normal heart sound and S2 normal heart sound Rate: regular rate Heart sounds: S1 normal and S2 normal GI Common normals: Normal to inspection, nondistended, normoactive bowel sounds present, soft to palpation, non-tender and no hepatosplenomegaly Palpation: soft and no hepatosplenomegaly Extremity Common normals: no clubbing, cyanosis or edema Neuro Common normals: oriented x3, moves all extremities and no focal motor deficits Psych Common normals: mental status grossly normal, denies hallucinations, denies homicidal ideation and denies suicidal ideation Results Labs Labs: Short CBC 04/06/23 04/06/23 Range/Units 04:04 16:48 WBC 17.0 H 17.7 H (4.0-11.0) 10^3/uL Hgb 13.2 L 14.7 (14.0-18.0) g/dL Hct 40.7 L 44.9 (42.0-54.0) % Plt Count 360 400 (150-450) 10^3/uL BMP 04/06/23 04/06/23 04:04 16:48 Sodium 133 L 137 Potassium 3.6 3.5 Chloride 98 99 Carbon Dioxide 26.0 28.2 BUN 19.0 H 16.0 Creatinine 1.17 1.14 Glucose 99 109 H Calcium 9.3 9.4 Liver Function 04/06/23 Range/Units 16:48 Total Bilirubin 0.8 (0.2-1.0) mg/dL AST 8 L (15-37) U/L ALT 20 (16-63) U/L Alkaline Phosphatase 74 (46-116) U/L Albumin 3.5 (3.4-5.0) g/dL Assessment and Plan Assessment and Plan (1) Sepsis: Assessment and Plan: SIRS (WBC 17, HR 104) with source of infection (Rectal abscess). On IV zosyn and vancomycin F/u OR cultures. Stable hemodynamics now. Monitor Qualifiers: Sepsis type: sepsis due to unspecified organism Sepsis acute organ dysfunction status: without acute organ dysfunction Qualified Code(s): A41.9 - Sepsis, unspecified organism (2) Perirectal abscess: Assessment and Plan: Marilee rectal abscess with anal fistula. Due to the size of the abscess cavity - drain kept in place. Will need wound care, daily dressing. Surgery on board. Wound care as per Surgery. (3) Cellulitis of buttock, right: Assessment and Plan: with associated abscess. s/p I&D. C/wIV abx F/u cultures. (4) Crohn's disease: Assessment and Plan: Prior hx of crohsn. Was on Pentasa and Budesonide. Stopped using everything 3 years ago on his own. Has not seen a GI for 3 years. Current rectal abscess likely related to Crohns and is at high risk of treatment fauilure/worse outcome if he did not have Crohns Patient educated/counseled that he will need outpatient GI f/u . Plan Changed to inpatient as rectal abscess with sepsis. Needs continued wound care, close clinical monitoring and IV abx.
[2023-04-07] MEDS: VANCOMYCIN HCL 1,000 MG in 0.9 % SODIUM CHLORIDE 250 ML 250 MG IV (15:49)
[2023-04-07] MEDS: KETOROLAC TROMETHAMINE 30 MG/ML VIAL IVP ×2 (15:49→20:28)
[2023-04-08] MEDS: VANCOMYCIN HCL 1,000 MG in 0.9 % SODIUM CHLORIDE 250 ML 150 MG IV ×2 (00:45→07:02)
[2023-04-08] MEDS: PIPERACILLIN SODIUM/TAZOBACTAM 3.375 GM in 0.9 % SODIUM CHLORIDE 50 ML IV ×3 (02:46→18:03)
[2023-04-08] MEDS: KETOROLAC TROMETHAMINE 30 MG/ML VIAL IVP ×4 (02:58→21:10)
--- NOTE | 2023-04-08 04:06 | PC.NURSE ---
assess pt surgical site for drainage and tube placement at 204904/07/23. Pt states he knows if there is any amount of drainage due to being able to feel the drainage in pad for catching the drainage. Assessment od surgical site found both draain tibes were in place, sutures present, no induration, small amount of drainage in the pad size of silver dollr at this time. continue to ask pt during shift about pain and check bandage. pt stated he was really distraught at first after meeting with doctor about procedure and has questions about his drains concerning BMs. pt has ambulated in the halls twice this evening with SO and tolerates it well. pt has some difficulty at first getting laid down and up but manages to get situated his own.
[2023-04-08 06:00] VITALS: BP 125/71; PULSE 70; RESP 20; TEMP 36.7; O2SAT 97
[2023-04-08 07:09] LABS: Basophils Percent Auto 0.1 % (0.2-2.0); Eosinophils Percent Auto 0.1 % (0.9-7.0); Hematocrit 39.2 % (42.0-54.0); Hemoglobin 12.7 g/dL (14.0-18.0); Immature Granulocytes Abs Auto 0.09 10^3/uL (0.00-0.03); Immature Granulocytes Pct Auto 0.6 % (0.0-0.5); Lymphocytes Absolute Auto 1.2 10^3/uL (1.2-3.8); Lymphocytes Percent Auto 8.3 % (20.5-60.0); Mean Corpuscular HGB Conc 32.4 g/dL (29.9-35.2); Mean Corpuscular Hemoglobin 28.3 pg (25.9-34.0); Mean Corpuscular Volume 87.3 fL (80.0-94.0); Mean Platelet Volume 9.9 fL (9.5-13.5); Monocytes Absolute Auto 1.1 10^3/uL (0.3-0.8); Monocytes Percent Auto 7.8 % (1.7-12.0); Neutrophils Absolute Auto 12.2 10^3/uL (1.4-6.5); Neutrophils Percent Auto 83.1 % (43.0-75.0); Platelet Count 345 10^3/uL (150-450); Red Blood Count 4.49 10^6/uL (4.70-6.10); Red Cell Distribution Width 13.3 % (11.0-15.0); White Blood Count 14.7 10^3/uL (4.0-11.0)
[2023-04-08 07:33] LABS: Alanine Aminotransferase 19 U/L (16-63); Albumin Globulin Ratio 0.6; Albumin Level 2.6 g/dL (3.4-5.0); Alkaline Phosphatase 61 U/L (46-116); Anion Gap 11.9; Aspartate Amino Transferase 10 U/L (15-37); BUN Creatinine Ratio 15.5; Bilirubin Total 0.5 mg/dL (0.2-1.0); Calcium 8.7 mg/dL (8.5-10.1); Carbon Dioxide 29.1 mmol/L (21.0-32.0); Chloride 102 mmol/L (98-107); Estimated GFR (African America >60 (>=60); Estimated GFR (Non-African Ame >60 (>=60); Globulin 4.3 g/dL; Glucose 109 mg/dL (74-106); Sodium 139 mmol/L (136-145); Total Protein 6.9 g/dL (6.4-8.2)
[2023-04-08 08:00] VITALS: BP 128/71; PULSE 66; RESP 18; TEMP 36.6; O2SAT 98
--- NOTE | 2023-04-08 10:35 | P.IMPN_ITS ---
Progress Note: A&P Assessment and Plan (1) Sepsis: Assessment and Plan: Stable hemodynamics. C/w Vancomycin/zosyn. F/u cultures. Qualifiers: Sepsis type: sepsis due to unspecified organism Sepsis acute organ dysfunction status: without acute organ dysfunction Qualified Code(s): A41.9 - Sepsis, unspecified organism (2) Perirectal abscess: Assessment and Plan: POD #[address] C.w wound care and dressing. Monitor and f/u cultures (3) Cellulitis of buttock, right: Assessment and Plan: As above. C/w IV abx F/u cultures. (4) Crohn's disease: Assessment and Plan: H/o crohns. Not currently on any treatment. Will need outpatient GI f/u Internal Medicine - PN: Subj Subjective Interval history: Seen and examined. Doing well. No active complaints to offer. Exam Constitutional Vital Signs, click to edit/add: Last Vital Signs Temp 98 F 04/08/23 08:00 Pulse 66 04/08/23 08:00 Resp 18 04/08/23 08:00 BP 128/71 04/08/23 08:00 Pulse Ox 98 04/08/23 08:00 O2 Del Method Room Air 04/08/23 08:00 O2 Flow Rate 8 04/07/23 09:49 Documenting provider has reviewed patient's vital signs: yes Common normals: no apparent distress and oriented x3 General appearance: cooperative Respiratory Common normals: normal respiratory effort and clear to auscultation bilaterally Effort & inspection: able to speak in complete sentences Auscultation: clear to auscultation bilaterally Cardio Common normals: regular rate, S1 normal heart sound and S2 normal heart sound Rate: regular rate Heart sounds: S1 normal and S2 normal GI Common normals: Normal to inspection, nondistended, normoactive bowel sounds present, soft to palpation, non-tender and no hepatosplenomegaly Palpation: soft and no hepatosplenomegaly Internal Medicine - PN: Obj Da Labs Labs: Laboratory Results - last 24 hr 04/08/23 07:00 WBC 14.7 H RBC 4.49 L Hgb 12.7 L Hct 39.2 L MCV 87.3 MCH 28.3 MCHC 32.4 RDW 13.3 Plt Count 345 MPV 9.9 Neut % (Auto) 83.1 H Lymph % (Auto) 8.3 L [place] % (Auto) 7.8 Eos % (Auto) 0.1 L Baso % (Auto) 0.1 L Neut # (Auto) 12.2 H Lymph # (Auto) 1.2 [place] # (Auto) 1.1 H Eos # (Auto) 0.0 Baso # (Auto) 0.0 Abs Immat Gran (auto) 0.09 H Imm/Tot Granulo (auto) 0.6 H Sodium 139 Potassium 4.0 Chloride 102 Carbon Dioxide 29.1 Anion Gap 11.9 BUN 16.0 Creatinine 1.03 Est GFR ( Amer) >60 Est GFR (Non-Af Amer) >60 BUN/Creatinine Ratio 15.5 Glucose 109 H Calcium 8.7 Total Bilirubin 0.5 AST 10 L ALT 19 Alkaline Phosphatase 61 Total Protein 6.9 Albumin 2.6 L Globulin 4.3 Albumin/Globulin Ratio 0.6
--- NOTE | 2023-04-08 11:47 | CM.NOTE ---
Rounds made with Dr. Mejia. Dr. Mejia to call and discuss plan with surgery to determine discharge needs and potential discharge date. Dav verbalizes understanding.
--- NOTE | 2023-04-08 11:59 | CM.NOTE ---
Spoke with and verified self pay status with Dav. Financial Counselors notified.
[2023-04-08] MEDS: ONDANSETRON PF 4 MG/2 ML VIAL IV (12:07)
[2023-04-08 14:22] VITALS: BP 135/79; PULSE 56; RESP 16; TEMP 36.8; O2SAT 96
[2023-04-08 14:52] LABS: Vancomycin Trough 15.8 ug/mL (5.0-20.0)
[2023-04-08] MEDS: VANCOMYCIN HCL 1,000 MG in 0.9 % SODIUM CHLORIDE 250 ML 250 MG IV (15:51)
--- NOTE | 2023-04-08 17:15 | PC.NURSE ---
offered dinner at this time. patient refused.
--- NOTE | 2023-04-08 19:56 | PM.GSPN ---
Progress Note: A&P Assessment and Plan (1) Sepsis: Assessment and Plan: resolved Qualifiers: Sepsis type: sepsis due to unspecified organism Sepsis acute organ dysfunction status: without acute organ dysfunction Qualified Code(s): A41.9 - Sepsis, unspecified organism (2) Perirectal abscess: Assessment and Plan: continue IV antibiotics; preliminary cx wit E coli; begin sitz baths tid and after bms (3) Cellulitis of buttock, right: Assessment and Plan: see # 2 (4) Crohn's disease: Assessment and Plan: will require outpatient evaluation by tertiary care customer experience intern and colorectal surgeon for management; likely in [place]. Plan await cx sensitivities; continue IV antibiotics, sitz baths, pain control. Subjective Subjective Interval history: POD # 1 s/p drainage of large right ischiorectal abscess extending to perineum; with placement of noncutting seton through rectal fistula; surgery done by Dr Lauren; patient reports decreased pain; intermittent bloody drainage; no fevers. Exam Narrative Exam Narrative: right buttock and perineal wounds with minimal bloody drainage; no fluctuance or crepitus; drains in place. Constitutional Vital Signs, click to edit/add: Last Vital Signs Temp 98.3 F 04/08/23 14:22 Pulse 56 L 04/08/23 14:22 Resp 16 04/08/23 14:22 BP 135/79 04/08/23 14:22 Pulse Ox 96 04/08/23 14:22 O2 Del Method Room Air 04/08/23 14:22 O2 Flow Rate 8 04/07/23 09:49
--- NOTE | 2023-04-08 20:21 | PC.NURSE ---
Drains to perineum draining sanguineous drainage.
[2023-04-08 21:14] VITALS: BP 110/65; PULSE 55; RESP 20; TEMP 36.7; O2SAT 97
[2023-04-08 22:41] VITALS: TEMP 36.7
[2023-04-08] MEDS: VANCOMYCIN HCL 1,000 MG in 0.9 % SODIUM CHLORIDE 250 ML 200 MG IV (22:41)
[2023-04-09] MEDS: PIPERACILLIN SODIUM/TAZOBACTAM 3.375 GM in 0.9 % SODIUM CHLORIDE 50 ML IV ×2 (03:12→10:20)
[2023-04-09] MEDS: KETOROLAC TROMETHAMINE 30 MG/ML VIAL IVP ×2 (03:13→09:47)
[2023-04-09 05:20] VITALS: BP 124/69; PULSE 51; RESP 20; TEMP 36.7; O2SAT 98
[2023-04-09 06:02] LABS: Hematocrit 37.1 % (42.0-54.0); Hemoglobin 11.8 g/dL (14.0-18.0); Mean Corpuscular HGB Conc 31.8 g/dL (29.9-35.2); Mean Corpuscular Volume 87.9 fL (80.0-94.0); Mean Platelet Volume 10.3 fL (9.5-13.5); Platelet Count 316 10^3/uL (150-450); Red Blood Count 4.22 10^6/uL (4.70-6.10); Red Cell Distribution Width 13.5 % (11.0-15.0); White Blood Count 12.9 10^3/uL (4.0-11.0)
[2023-04-09 06:17] LABS: Alanine Aminotransferase 21 U/L (16-63); Albumin Globulin Ratio 0.6; Albumin Level 2.5 g/dL (3.4-5.0); Alkaline Phosphatase 51 U/L (46-116); Anion Gap 12.3; Aspartate Amino Transferase 13 U/L (15-37); Bilirubin Total 0.4 mg/dL (0.2-1.0); Calcium 8.8 mg/dL (8.5-10.1); Chloride 105 mmol/L (98-107); Estimated GFR (African America 58 (>=60); Estimated GFR (Non-African Ame 48 (>=60); Glucose 92 mg/dL (74-106); Potassium 4.3 mmol/L (3.5-5.1); Sodium 142 mmol/L (136-145); Total Protein 6.5 g/dL (6.4-8.2)
[2023-04-09] MEDS: VANCOMYCIN HCL 1,000 MG in 0.9 % SODIUM CHLORIDE 250 ML 200 MG IV (06:26)
[2023-04-09 07:13] LABS: Band Neutrophils Absolute 0.3 10^3/uL (0.0-0.3); Lymphocytes Absolute Manual 0.77 10^3/uL (1.20-3.80); Monocytes Absolute Manual 0.77 10^3/uL (0.30-0.80); Segmented Neut Absolute Manual 11.09 10^3/uL (1.4-6.5)
--- NOTE | 2023-04-09 12:00 | PM.GSPN ---
Progress Note: A&P Assessment and Plan (1) Sepsis: Assessment and Plan: resolved Qualifiers: Sepsis acute organ dysfunction status: without acute organ dysfunction Sepsis type: sepsis due to unspecified organism Qualified Code(s): A41.9 - Sepsis, unspecified organism (2) Perirectal abscess: Assessment and Plan: doing well; patient to do sitz baths tid and after bms; likely exam under anesthesia, possible drain removal/packing tomorrow to better evaluate wounds. (3) Cellulitis of buttock, right: Assessment and Plan: resolved (4) Crohn's disease: (5) NAIN (acute kidney injury): Assessment and Plan: nephrotoxic drugs discontinued; hydrating, work up per hospitalist. Subjective Subjective Interval history: patient seen 04/09/23; POD # 2 s/p drainage large perirectal abscess and seton placement for anal fistula; afebrile, denies pain, still with bloody drainage. Exam Narrative Exam Narrative: right buttock and perineal wounds clean, no cellulitis, no purulent drainage, no crepitus, tissue viable Constitutional Vital Signs, click to edit/add: Last Vital Signs Temp 98 F 04/10/23 05:56 Pulse 63 04/10/23 05:56 Resp 18 04/10/23 05:56 BP 146/70 H 04/10/23 05:56 Pulse Ox 97 04/10/23 05:56 O2 Del Method Room Air 04/10/23 05:56 O2 Flow Rate 8 04/07/23 09:49
--- NOTE | 2023-04-09 12:30 | CM.NOTE ---
In depth conversation had with patient about the importance of signing up for health insurance with his employer. Current situation he may be making too much money to qualify for Medicaid, and he did let his previous Medicaid lapse. Patient voiced he has open enrollment for his employer for another week and he will sign up. Also informed patient of follow up appointments with Dr. Mejia and Dr. Buenrostro and nursing will be scheduling those appointments. Pt. in agreement with this plan and denies any other questions at this time.
[2023-04-09 12:39] LABS: Anion Gap 8.7; Calcium 8.8 mg/dL (8.5-10.1); Chloride 102 mmol/L (98-107); Estimated GFR (African America 44 (>=60); Estimated GFR (Non-African Ame 36 (>=60); Glucose 112 mg/dL (74-106); Potassium 3.7 mmol/L (3.5-5.1); Sodium 137 mmol/L (136-145)
[2023-04-09 13:16] VITALS: BP 132/86; PULSE 61; RESP 16; TEMP 36.8; O2SAT 97
--- NOTE | 2023-04-09 13:42 | US_ITS ---
[address] [address] Patient Name: AMANDEEP MARTÍNEZ MRN: [id number] date: 2000 Sex: M Assigned Patient Location: MS Current Patient Location: Accession/Order Number: [id number] Exam Date: 04/09/2023 14:50 Report Date: 04/09/2023 15:45 At the request of: SHAIKH ADILIA Procedure: US renal bladder EXAM: US renal bladder; [id number] HISTORY: NAIN. TECHNIQUE: Real-time sonography through the kidneys and bladder was performed. Color and spectral Doppler images of the kidneys were obtained. COMPARISON: CT abdomen/pelvis 04/06/2023. FINDINGS: RIGHT KIDNEY: Size: 11.8 x 5.7 x 7 cm. Volume 243.3 cc. Normal in size and echogenicity. No collecting system dilatation. No echogenic calculi. No solid mass on provided views. Doppler signal is within normal limits. LEFT KIDNEY: Size: 11.2 x 6.2 x 5.6 cm. Volume 204.1 cc. Normal in size and echogenicity. No collecting system dilatation. No echogenic calculi. No solid mass on provided views. Doppler signal is within normal limits. BLADDER: Normal in appearance. No wall thickening or mass. Bilateral ureteral jets are seen. Postvoid residual volume of 3.5 mL. US/US renal bladder IMPRESSION: Sonographic appearance of the kidneys and bladder is within normal limits. Electronically authenticated by: ARTIE ROLON Date: 04/09/2023 15:45
[2023-04-09] MEDS: 0.9 % SODIUM CHLORIDE 1,000 ML 1000 ML IV (14:04)
--- NOTE | 2023-04-09 15:42 | PM.IMPN1 ---
Progress Note: A&P Assessment and Plan (1) Sepsis: Assessment and Plan: Wound culture growing E coli - sensitive. Switch abx to IV rocephin Qualifiers: Sepsis type: sepsis due to unspecified organism Sepsis acute organ dysfunction status: without acute organ dysfunction Qualified Code(s): A41.9 - Sepsis, unspecified organism (2) Perirectal abscess: Assessment and Plan: POD #[address] C.w wound care and dressing. (3) Cellulitis of buttock, right: Assessment and Plan: Switch to Rocephin (4) Crohn's disease: Assessment and Plan: H/o crohns. Not currently on any treatment. Will need outpatient GI f/u (5) NAIN (acute kidney injury): Assessment and Plan: Plan was to d/c patient but noted to have acute worsening of Cr, that increased further on repeat BMP One L NS bolus ordered. Start on NS at 125. Ordered renal US, urine cr, sodium, protein. Monitor UO Recheck BMP Internal Medicine - PN: Subj Subjective Interval history: Seen and examined. Doing well. No active complaints to offer. No overnight events Exam Constitutional Vital Signs, click to edit/add: Last Vital Signs Temp 98.3 F 04/09/23 13:16 Pulse 61 04/09/23 13:16 Resp 16 04/09/23 13:16 BP 132/86 04/09/23 13:16 Pulse Ox 97 04/09/23 13:16 O2 Del Method Room Air 04/09/23 13:16 O2 Flow Rate 8 04/07/23 09:49 Documenting provider has reviewed patient's vital signs: yes Common normals: no apparent distress and oriented x3 General appearance: cooperative Respiratory Common normals: normal respiratory effort and clear to auscultation bilaterally Effort & inspection: able to speak in complete sentences Auscultation: clear to auscultation bilaterally Cardio Common normals: regular rate, S1 normal heart sound and S2 normal heart sound Rate: regular rate Heart sounds: S1 normal and S2 normal GI Common normals: Normal to inspection, nondistended, normoactive bowel sounds present, soft to palpation, non-tender and no hepatosplenomegaly Palpation: soft and no hepatosplenomegaly Internal Medicine - PN: Obj Da Labs Labs: Laboratory Results - last 24 hr 04/09/23 04/09/23 04:29 12:10 WBC 12.9 H RBC 4.22 L Hgb 11.8 L Hct 37.1 L MCV 87.9 MCH 28.0 MCHC 31.8 RDW 13.5 Plt Count 316 MPV 10.3 Seg Neuts % (Manual) 86.0 Band Neutrophils % 2.0 Lymphocytes % (Manual) 6.0 L Monocytes % (Manual) 6.0 Eosinophils % (Manual) 0.0 L Basophils % (Manual) 0.0 L Neutrophils # (Manual) 11.09 H Band Neutrophils # 0.3 Lymphocytes # (Manual) 0.77 L Monocytes # (Manual) 0.77 Eosinophils # (Manual) 0.00 Basophils # (Manual) 0.00 Sodium 142 137 Potassium 4.3 3.7 Chloride 105 102 Carbon Dioxide 29.0 30.0 Anion Gap 12.3 8.7 BUN 23.0 H 25.0 H Creatinine 1.77 H 2.27 H Est GFR ( Amer) 58 L 44 L Est GFR (Non-Af Amer) 48 L 36 L BUN/Creatinine Ratio 13.0 11.0 Glucose 92 112 H Calcium 8.8 8.8 Total Bilirubin 0.4 AST 13 L ALT 21 Alkaline Phosphatase 51 Total Protein 6.5 Albumin 2.5 L Globulin 4.0 Albumin/Globulin Ratio 0.6
--- NOTE | 2023-04-09 17:17 | PC.NURSE ---
patient offered dinner. patient states he will order when hes ready. patient educated he has until 1830 pm to order dinner.
[2023-04-09] MEDS: 0.9 % SODIUM CHLORIDE 1,000 ML 995 ML IV (17:48)
[2023-04-09 20:00] VITALS: RESP 16
[2023-04-09 21:27] LABS: Anion Gap 7.5; BUN Creatinine Ratio 9.4; Calcium 8.4 mg/dL (8.5-10.1); Carbon Dioxide 29.4 mmol/L (21.0-32.0); Chloride 104 mmol/L (98-107); Estimated GFR (African America 38 (>=60); Estimated GFR (Non-African Ame 31 (>=60); Glucose 99 mg/dL (74-106); Potassium 3.9 mmol/L (3.5-5.1); Sodium 137 mmol/L (136-145)
[2023-04-09 22:00] VITALS: BP 132/75; PULSE 50; RESP 18; TEMP 36.6; O2SAT 98
[2023-04-09] MEDS: 0.9 % SODIUM CHLORIDE 1,000 ML 125 ML IV (23:41)
[2023-04-09] MEDS: CEFTRIAXONE 1,000 MG in 0.9 % SODIUM CHLORIDE 50 ML 100 MG IV (23:41)
[2023-04-10] VITALS (17 sets, daily range): BP systolic 124–152; BP diastolic 70–90; PULSE 54–114; RESP 12–21; TEMP 36.4–37.1; O2SAT 93–100
--- NOTE | 2023-04-10 | OP_ITS ---
OPERATION DATE: ??04/10/2023 PREOPERATIVE DIAGNOSIS:? Right perirectal abscess and anal fistula POSTOPERATIVE DIAGNOSIS:? Right perirectal abscess and anal fistula PROCEDURE:? Exam under anesthesia, irrigation of abscess cavity, removal of Beba drain and packing with 2? Kerlix gauze, damp to dry. SURGEON:? Santos Buenrostro M.D. ANESTHESIA:? General endotracheal. ESTIMATED BLOOD LOSS:? Less than 2 mL. INDICATIONS AND CONSENT:? Patient is a 22-year-old male with history of Crohn?s disease, who developed a large perirectal abscess extending up into the perineum as well as evidence of a rectal fistula.? Indications, risks, benefits, alternatives of proceeding with exam under anesthesia, wound irrigation and packing were explained extensively to the patient, including the risks of bleeding, infection, scarring, pain, need for further surgery, anesthetic complications.? All of his question were answered.? Informed consent was obtained.? PROCEDURE:? Patient was brought to the operating room, placed in the supine position.? General anesthesia was induced.? He was then placed in the modified lithotomy position.? The dressing was removed.? The wound was evaluated.? He had a large right buttock abscess cavity extending up towards the perineum just below the scrotum.? There was a large Beba drain going through the abscess cavity and exiting out through the perineum.? This was removed and the stitches were removed.? The cavity was irrigated with half strength peroxide solution and saline.? There was no purulence or necrotic tissue.? The seton was in place through the rectal fistula and this was left in.? It was knotted to prevent removal, and this had suture ties to it.? There was no purulence, no crepitus, no cellulitis.? The abscess cavity on the right buttock was then packed with 2? Kerlix gauze, damp to dry.? ABD was placed over this area as well as a Depends.? Patient tolerated procedure well, was extubated and sent to recovery room in good condition. ESTIMATED BLOOD LOSS::? Less than 2 mL. CC:? Dr. Roberto MAHER
[2023-04-10 05:42] LABS: Basophils Percent Auto 0.2 % (0.2-2.0); Eosinophils Absolute Auto 0.2 10^3/uL (0.0-0.7); Eosinophils Percent Auto 1.4 % (0.9-7.0); Hematocrit 36.5 % (42.0-54.0); Hemoglobin 11.6 g/dL (14.0-18.0); Immature Granulocytes Abs Auto 0.08 10^3/uL (0.00-0.03); Immature Granulocytes Pct Auto 0.6 % (0.0-0.5); Lymphocytes Absolute Auto 1.2 10^3/uL (1.2-3.8); Lymphocytes Percent Auto 9.9 % (20.5-60.0); Mean Corpuscular HGB Conc 31.8 g/dL (29.9-35.2); Mean Corpuscular Hemoglobin 28.2 pg (25.9-34.0); Mean Corpuscular Volume 88.6 fL (80.0-94.0); Mean Platelet Volume 10.4 fL (9.5-13.5); Monocytes Absolute Auto 1.5 10^3/uL (0.3-0.8); Monocytes Percent Auto 11.6 % (1.7-12.0); Neutrophils Absolute Auto 9.6 10^3/uL (1.4-6.5); Neutrophils Percent Auto 76.3 % (43.0-75.0); Platelet Count 319 10^3/uL (150-450); Red Blood Count 4.12 10^6/uL (4.70-6.10); Red Cell Distribution Width 13.4 % (11.0-15.0); White Blood Count 12.5 10^3/uL (4.0-11.0)
[2023-04-10 06:00] LABS: Alanine Aminotransferase 17 U/L (16-63); Albumin Globulin Ratio 0.6; Albumin Level 2.3 g/dL (3.4-5.0); Alkaline Phosphatase 45 U/L (46-116); Aspartate Amino Transferase 16 U/L (15-37); BUN Creatinine Ratio 9.5; Bilirubin Total 0.4 mg/dL (0.2-1.0); Calcium 8.4 mg/dL (8.5-10.1); Carbon Dioxide 27.2 mmol/L (21.0-32.0); Chloride 106 mmol/L (98-107); Estimated GFR (African America 39 (>=60); Estimated GFR (Non-African Ame 32 (>=60); Globulin 3.9 g/dL; Glucose 88 mg/dL (74-106); Potassium 4.2 mmol/L (3.5-5.1); Sodium 139 mmol/L (136-145); Total Protein 6.2 g/dL (6.4-8.2)
[2023-04-10] MEDS: 0.9 % SODIUM CHLORIDE 1,000 ML 125 ML IV ×2 (06:45→20:00)
--- NOTE | 2023-04-10 06:50 | PC.NURSE ---
pt has seton and lanette drains in wound tract to help remove any residual infection and drainage, small amount on pad worn in breif. pt refused sitz bath earlier in shift, wants to take shower in AM, lizz came in and seen pt about takinghim back to remove the drains later on today.
--- NOTE | 2023-04-10 07:52 | PC.NURSE ---
set sitz bath up for patient and explained how to use the equipment. pt requested to complete procedure on his own. patient states understanding of how to complete procedure.
[2023-04-10] MEDS: LACTATED RINGER'S SOLUTION 1,000 ML 50 ML IV (09:42)
--- NOTE | 2023-04-10 10:37 | PC.NURSE ---
patient educated on npo diet prior to surgery @ 0386. patient and girlfriend voiced understanding.
[2023-04-10] MEDS: ONDANSETRON PF 4 MG/2 ML VIAL IV (10:47)
[2023-04-10] MEDS: FAMOTIDINE/PF 20 MG/2 ML VIAL IV (10:47)
--- NOTE | 2023-04-10 11:07 | CM.NOTE ---
Rounding with Dr. Mejia. Plan for OR with Dr. Buenrostro today to remove drains. Continue to follow post op for discharge plan.
[2023-04-10] MEDS: HYDROMORPHONE HCL 0.5 MG/0.5 ML SYRINGE IV (11:49)
--- NOTE | 2023-04-10 11:55 | P.IMPN_ITS ---
Progress Note: A&P Assessment and Plan (1) Sepsis: Assessment and Plan: resolved. on IV rocephin. Will switch to PO abx medically ready. Qualifiers: Sepsis type: Escherichia coli Sepsis acute organ dysfunction status: without acute organ dysfunction Qualified Code(s): A41.51 - Sepsis due to Escherichia coli [E. coli] (2) Perirectal abscess: Assessment and Plan: POD #[address] C.w wound care and dressing. NPO for exam under anesthesia and possible drain removal. (3) Cellulitis of buttock, right: Assessment and Plan: On rocephin. (4) Crohn's disease: Assessment and Plan: H/o crohns. Not currently on any treatment. Will need outpatient GI f/u (5) NAIN (acute kidney injury): Assessment and Plan: Creatinine slowly improving. Has good UO. C/w IVF. Normal Renal US. Monitor I/Os. Suspect NAIN was due to vancomycin/zosyn Plan Continued hospital stay to ensure renal function continues to improve. Need to d/w gen surgery and follow updated recs based on their OR exam. Internal Medicine - PN: Subj Subjective Interval history: Seen and examined. Doing well. No active complaints to offer. NPO for OR today for examination under anesthesia and possible drain removal Exam Constitutional Vital Signs, click to edit/add: Last Vital Signs Temp 98.8 F 04/10/23 11:37 Pulse 114 H 04/10/23 11:37 Resp 14 04/10/23 11:37 BP 148/86 H 04/10/23 11:37 Pulse Ox 97 04/10/23 11:37 O2 Del Method Room Air 04/10/23 11:37 O2 Flow Rate 8 04/07/23 09:49 Documenting provider has reviewed patient's vital signs: yes Common normals: no apparent distress and oriented x3 General appearance: cooperative Respiratory Common normals: normal respiratory effort and clear to auscultation bilaterally Effort & inspection: able to speak in complete sentences Auscultation: clear to auscultation bilaterally Cardio Common normals: regular rate, S1 normal heart sound and S2 normal heart sound Rate: regular rate Heart sounds: S1 normal and S2 normal GI Common normals: Normal to inspection, nondistended, normoactive bowel sounds present, soft to palpation, non-tender and no hepatosplenomegaly Palpation: soft and no hepatosplenomegaly Internal Medicine - PN: Obj Da Labs Labs: Laboratory Results - last 24 hr 04/09/23 04/09/23 04/10/23 12:10 21:11 04:24 WBC 12.5 H RBC 4.12 L Hgb 11.6 L Hct 36.5 L MCV 88.6 MCH 28.2 MCHC 31.8 RDW 13.4 Plt Count 319 MPV 10.4 Neut % (Auto) 76.3 H Lymph % (Auto) 9.9 L [place] % (Auto) 11.6 Eos % (Auto) 1.4 Baso % (Auto) 0.2 Neut # (Auto) 9.6 H Lymph # (Auto) 1.2 [place] # (Auto) 1.5 H Eos # (Auto) 0.2 Baso # (Auto) 0.0 Abs Immat Gran (auto) 0.08 H Imm/Tot Granulo (auto) 0.6 H Sodium 137 137 139 Potassium 3.7 3.9 4.2 Chloride 102 104 106 Carbon Dioxide 30.0 29.4 27.2 Anion Gap 8.7 7.5 10.0 BUN 25.0 H 24.0 H 24.0 H Creatinine 2.27 H 2.56 H 2.53 H Est GFR ( Amer) 44 L 38 L 39 L Est GFR (Non-Af Amer) 36 L 31 L 32 L BUN/Creatinine Ratio 11.0 9.4 9.5 Glucose 112 H 99 88 Calcium 8.8 8.4 L 8.4 L Total Bilirubin 0.4 AST 16 ALT 17 Alkaline Phosphatase 45 L Total Protein 6.2 L Albumin 2.3 L Globulin 3.9 Albumin/Globulin Ratio 0.6
[2023-04-10] MEDS: OXYCODONE HCL 5 MG TABLET PO (14:28)
[2023-04-10] MEDS: CEFTRIAXONE 1,000 MG in 0.9 % SODIUM CHLORIDE 50 ML 100 MG IV (15:08)
--- NOTE | 2023-04-10 22:18 | PC.NURSE ---
patient lost IV access. RN attempted one IV and was unsuccessful. Another RN went into the room to attempt an IV and the patient is refusing to get another IV. He stated he is done being poked and prodded and I just want to sleep tonight. Dr. Linda, Tele-hospitalist, is made aware of the situation.
[2023-04-11 05:06] VITALS: O2SAT 96
[2023-04-11 05:54] LABS: Basophils Percent Auto 0.1 % (0.2-2.0); Eosinophils Absolute Auto 0.1 10^3/uL (0.0-0.7); Eosinophils Percent Auto 0.5 % (0.9-7.0); Hematocrit 34.7 % (42.0-54.0); Hemoglobin 11.6 g/dL (14.0-18.0); Immature Granulocytes Pct Auto 0.6 % (0.0-0.5); Lymphocytes Absolute Auto 1.6 10^3/uL (1.2-3.8); Lymphocytes Percent Auto 10.1 % (20.5-60.0); Mean Corpuscular HGB Conc 33.4 g/dL (29.9-35.2); Mean Corpuscular Hemoglobin 29.2 pg (25.9-34.0); Mean Corpuscular Volume 87.4 fL (80.0-94.0); Mean Platelet Volume 10.7 fL (9.5-13.5); Monocytes Absolute Auto 1.7 10^3/uL (0.3-0.8); Monocytes Percent Auto 10.5 % (1.7-12.0); Neutrophils Absolute Auto 12.4 10^3/uL (1.4-6.5); Neutrophils Percent Auto 78.2 % (43.0-75.0); Platelet Count 336 10^3/uL (150-450); Red Blood Count 3.97 10^6/uL (4.70-6.10); White Blood Count 15.9 10^3/uL (4.0-11.0)
[2023-04-11 05:56] VITALS: BP 134/87; PULSE 79; RESP 16; TEMP 36.4; O2SAT 96
[2023-04-11 06:17] LABS: Alanine Aminotransferase 12 U/L (16-63); Albumin Globulin Ratio 0.6; Albumin Level 2.2 g/dL (3.4-5.0); Alkaline Phosphatase 42 U/L (46-116); Anion Gap 9.9; Aspartate Amino Transferase 12 U/L (15-37); BUN Creatinine Ratio 8.8; Bilirubin Total 0.3 mg/dL (0.2-1.0); Calcium 8.5 mg/dL (8.5-10.1); Carbon Dioxide 27.1 mmol/L (21.0-32.0); Chloride 106 mmol/L (98-107); Estimated GFR (African America 43 (>=60); Estimated GFR (Non-African Ame 36 (>=60); Globulin 3.8 g/dL; Glucose 92 mg/dL (74-106); Sodium 139 mmol/L (136-145)
[2023-04-11] MEDS: OXYCODONE HCL 5 MG TABLET PO (08:57)
[2023-04-11] MEDS: ACETAMINOPHEN 325 MG TABLET 650 MG PO (08:57)
--- NOTE | 2023-04-11 10:15 | PC.NURSE ---
dressing and packing was removed at this time so patient could shower. dressing will be replaced after shower.
--- NOTE | 2023-04-11 11:36 | CM.NOTE ---
Rounded with Dr. Mejia this morning. Dr. Mejia stressed the importance of following up on [facility] for daily wound care and risks if appropriate follow up is not done. RN Janett is aware of his follow up appointments with Dr. Buenrostro and Dr. Mejia and nursing has completed and signed [facility] form to set patient up with daily wound care. Pt voiced during rounds that he was unable to log into his portal for work for open enrollment. I highly suggested he contact his employer HR department [employer] to get this fixed and ensure that he signs up for benefits.
--- NOTE | 2023-04-11 11:41 | P.DS_ITS ---
DS: Providers Provider Date of admission: 04/07/23 13:24 Primary care physician: Non-Staff Physician, Attending physician on discharge: Shaikh Roberto Discharging clinician: Shaikh Roberto Anticipated date of discharge: 04/11/23 DS: Diagnosis Discharge Diagnosis (1) Sepsis: Assessment and plan: due to rectal abscess. Resolved. Qualifiers: Sepsis type: Escherichia coli Sepsis acute organ dysfunction status: without acute organ dysfunction Qualified Code(s): A41.51 - Sepsis due to Escherichia coli [E. coli] (2) Perirectal abscess: Assessment and plan: s/p incision and drainage. Culture positive for E coli - stable for d/c on oral abx. (3) Cellulitis of buttock, right: Assessment and plan: Sec to E coli. stable for d/c (4) Crohn's disease: Assessment and plan: Will need outpatient f/u . (5) NAIN (acute kidney injury): Assessment and plan: Likely due to IV abx. Improving. Will need BMP in one week before f/u as outpatient. DS: Summary Hospital Course Hospital Course: 22 y o male with hx of crohns disease (stopped medications/follow up for it one year ago) presented to ED with rectal pressure/pain, nausea. W/u indicated complex rectal abscess for which he was taken to OR. He had incision and drainage, and drain was placed. Patient was treated on floor with broad spectrum abx. Wound cx grew E coli. Stable for d/c on oral abx. Patient was taken to OR during hospital stay for examination under anesthesia and removal of drain. He developed acute kidney during hospital stay likely due to IV abx and improved progressively with IVF. He will need repeat BMP in one week to ensure renal function is improving. Discussed - avoiding NSAIDS. Patient set up for outpatient dressing, daily. Needs f/u with surgery as outpatient. Status at Discharge Functional status at discharge: independent ambulation Overall status at discharge: patient is back to baseline Time Spent with Patient Time attestation: Total time spent providing and/or coordinating discharge services: Time spent: greater than 30 minutes Exam Constitutional Vital Signs, click to edit/add: Last Vital Signs Temp 97.5 F L 04/11/23 05:56 Pulse 79 04/11/23 05:56 Resp 16 04/11/23 05:56 BP 134/87 04/11/23 05:56 Pulse Ox 96 04/11/23 05:56 O2 Del Method Room Air 04/11/23 05:56 O2 Flow Rate 8 04/07/23 09:49 Documenting provider has reviewed patient's vital signs: yes Common normals: no apparent distress and oriented x3 General appearance: cooperative Respiratory Common normals: normal respiratory effort and clear to auscultation bilaterally Effort & inspection: able to speak in complete sentences Auscultation: clear to auscultation bilaterally Cardio Common normals: regular rate, S1 normal heart sound and S2 normal heart sound Rate: regular rate Heart sounds: S1 normal and S2 normal GI Common normals: Normal to inspection, nondistended, normoactive bowel sounds present, soft to palpation, non-tender and no hepatosplenomegaly Palpation: soft and no hepatosplenomegaly DS: Data Data Completed and Pending Labs on day of discharge: Labs from last 24 hours 04/11/23 04:40 WBC 15.9 H RBC 3.97 L Hgb 11.6 L Hct 34.7 L MCV 87.4 MCH 29.2 MCHC 33.4 RDW 13.0 Plt Count 336 MPV 10.7 Neut % (Auto) 78.2 H Lymph % (Auto) 10.1 L [place] % (Auto) 10.5 Eos % (Auto) 0.5 L Baso % (Auto) 0.1 L Neut # (Auto) 12.4 H Lymph # (Auto) 1.6 [place] # (Auto) 1.7 H Eos # (Auto) 0.1 Baso # (Auto) 0.0 Abs Immat Gran (auto) 0.10 H Imm/Tot Granulo (auto) 0.6 H Sodium 139 Potassium 4.0 Chloride 106 Carbon Dioxide 27.1 Anion Gap 9.9 BUN 20.0 H Creatinine 2.28 H Est GFR ( Amer) 43 L Est GFR (Non-Af Amer) 36 L BUN/Creatinine Ratio 8.8 Glucose 92 Calcium 8.5 Total Bilirubin 0.3 AST 12 L ALT 12 L Alkaline Phosphatase 42 L Total Protein 6.0 L Albumin 2.2 L Globulin 3.8 Albumin/Globulin Ratio 0.6 Discharge Plan Discharge Disposition: Home, Self-Care Discharge Medications: New levofloxacin 750 mg tablet 750 mg PO DAILY 7 Days Qty: 7 0RF oxycodone 5 mg tablet 5 mg PO Q8H PRN (Reason: pain) Qty: 10 0RF Activity: increase activity as tolerated Diet: advance to your usual diet Forms: Portal Instructions Follow Up Appointments: Follow up [facility]. [facility]rostro [facility] [address] [address] Office#: [phone] Follow up appt. with Dr. Mejia on @ 4pm [address] Office#: [phone] Please bring all medication in the original bottles with you to the appt. DR. Mejia wants patient to have outpatient labs drawn on 04/14, prior to this appointment please remind pt. of this upon discharge. Nursing to set up daily dressing changes in the [facility] upon discharge and communicate this information to the patient and where to go. Avoid using NSAIDS for pain
--- NOTE | 2023-04-11 14:15 | CM.NOTE ---
[facility] asking if pt could change F/U that was scheduled with Dr. Buenrostro tomorrow. No change in appt d/t pt has to be set up with surgeon for fistula repair and needs referral from Dr. Buenrostro. Discussed with pt and grandmother importance of f/u appt.
== END 2023-04-11 13:57 | disposition home or self-care (01) | DRG 854 ==
LOC: ER 20:51 → MS 21:40
PROVIDERS: Emergency Medicine; Surgery; Admitting Provider Internal Medicine; Emergency Provider Student in an Organized Health Care Education/Training Program; Visit Provider Internal Medicine
PROC: 0D9P0ZZ Drainage of Rectum, Open Approach (ICD-10-PCS; principal; 2023-04-07 08:10)
PROC: 0DPDX0Z Removal of Drainage Device from Lower Intestinal Tract, External Approach (ICD-10-PCS; principal; 2023-04-10 10:25)
DX: A41.9 Sepsis, unspecified organism (principal); I96 Gangrene, not elsewhere classified; K50.90 Crohn's disease, unspecified, without complications; L03.315 Cellulitis of perineum; L03.317 Cellulitis of buttock; N17.9 Acute kidney failure, unspecified; T36.95XA Adverse effect of unspecified systemic antibiotic, initial encounter; Y92.239 Unspecified place in hospital as the place of occurrence of the external cause; B96.20 Unspecified Escherichia coli [E. coli] as the cause of diseases classified elsewhere; K61.39 Other ischiorectal abscess; F17.210 Nicotine dependence, cigarettes, uncomplicated; T44.5X6A Underdosing of predominantly beta-adrenoreceptor agonists, initial encounter; T50.996A Underdosing of other drugs, medicaments and biological substances, initial encounter; Z91.128 Patient's intentional underdosing of medication regimen for other reason; Z82.49 Family history of ischemic heart disease and other diseases of the circulatory system
CPT/HCPCS: 36415; 74177; 76770; 80048; 80053; 80202; 80329; 82570; 83605; 84156; 84300; 85025; 85027; 85610; 85730; 87070; 87075; 87150; 87186; 87205; 94761; 96365; 96366; 96367; 96368; 96375; 96376; 99285; 99999; G0378; J1170; J2704; J3370; Q9967

== ENCOUNTER 2023-05-02 07:27 | Outpatient (RCR) | payer OTHER, SELFPAY ==
[2023-04-12 12:15] VITALS: BP 142/69; PULSE 85; RESP 18; TEMP 36.9; O2SAT 97
--- NOTE | 2023-04-12 15:37 | PC.NURSE ---
patient took percocet 5/325 1 hour prior to arrival
--- NOTE | 2023-04-12 15:40 | PC.NURSE ---
1215 Arrival ambulatory to recliner, able to recline lying on left side. Patient had taken 1 percocet prior to arrival for dressing change. Arrival after appt with Dr. Buenrostro in office. 1230 patient laying on left side in bed. had depends on holding old abd to wound site, old dressing removed with mod amount of serosang drainage on ABD pad. Packing saturated with NSS and gently removed, patient very apprehensive with dressing change and tearful at times. Once old packing removed, irrigated wound with NSS. Wound measurements obtained. wound has a tunneling depth of 7cm upwards. wound opening has approximately 4.2 cm length and 1.2 cm width. wound depth has pink clean looking wound, did note odor to old drainage. cleansed surrounding skin with soap and water, skin prep applied to intact skin surrounding wound. Seton drain is intact. Old lanette site in perineal area between scrotum and wound appears closed and clean at site. Repacked wound with 2 inch kerlex moistened with sterile NSS. covered packing with abd, depends used to hold ABD pad in place. Patient remained apprehensive and tearful throughout dressing change. Did state the pain was much better with this dressing change. Patient finished dressing self, and was released ambulatory with his grandmother. Dr. Buenrostro's office was notified that patient will be here on Med/Surg saturday and Saturday and Dr. Buenrostro will attempt to see patient while here with dressing change either Saturday or Saturday.
[2023-04-13 12:57] VITALS: BP 142/83; PULSE 86; RESP 18; TEMP 36.6; O2SAT 96
--- NOTE | 2023-04-13 13:17 | PC.NURSE ---
Patient arrived ambulatory. Patient laid on bed on his side. Patient self medicated with Percocet prior to arrival. Removed depend and old dressing. Serosanguinous drainage on ABD pad. Packing saturated with NS and removed. Patient was very tearful during dressing change. Irrigated wound with NS. Seton drain is intact. Repacked wound with 2 inch Kerlex moistened with sterile NS. Covered packing with ABD, depends used to hold ABD pad in place. Patient finished dressing self.
[2023-04-14 13:27] LABS: Anion Gap 12.7; BUN Creatinine Ratio 7.8; Calcium 9.2 mg/dL (8.5-10.1); Carbon Dioxide 30.1 mmol/L (21.0-32.0); Chloride 99 mmol/L (98-107); Estimated GFR (African America 49 (>=60); Estimated GFR (Non-African Ame 40 (>=60); Glucose 96 mg/dL (74-106); Potassium 3.8 mmol/L (3.5-5.1); Sodium 138 mmol/L (136-145)
--- NOTE | 2023-04-14 13:56 | PC.NURSE ---
Patient was able to lay on right side for dressing changed. Old dressing removed. Cleaned with NS and patted dry. Applied wet to dry kerlix covered with ABD. Patient requested ABD be cut in half. C/o pain and discomfort with dressing change. Blood was drawn by lab while patient on the unit.
[2023-04-15 13:11] VITALS: BP 125/74; PULSE 108; RESP 16; TEMP 36.6; O2SAT 94
--- NOTE | 2023-04-15 13:14 | PC.NURSE ---
1220: Pt. to [facility] amb. accompanied by grandmother. Pt. to right lateral position on bed. Depends undergarment removed. Right buttock with ABD dressing covering open wound with packing. Small amount serosang. drainage noted to ABD. Packing from perineal wound saturated with saline, removed and noted to have large amount serosang. drainage. Seton drain noted to be intact. Wound bed flushed with saline irrigant. Pt. demonstrating deep breathing exercises throughout dressing change, and tolerated wit minimal c/o pain. Wound packed with saline soaked kerlix dressing. Covered with ABD, and secured with fresh, clean depends to hold dressings in place. Pt. dresses self. 1241: Pt d/c'd amb. to home with grandmother.
[2023-04-16 13:40] VITALS: BP 132/68; PULSE 82; RESP 18; TEMP 37.1; O2SAT 98
--- NOTE | 2023-04-16 13:43 | PC.NURSE ---
Arrival ambulatory for dressing change. Old packing removed from rt buttock, noted foul odor, sero sang drainage on old packing. Irrigated with NSS. Cleased around wound with soap and water, dried, applied skin prep. repacked wound with saline soaked kerlix, covered with abd, secured with abd. wound depth measured approx 7cm. wound bed appears beefy red. Released ambulatory
[2023-04-17 14:37] VITALS: BP 126/84; PULSE 100; RESP 16; TEMP 36.4; O2SAT 99
--- NOTE | 2023-04-17 14:39 | PC.NURSE ---
Arrival ambulatory. patient ambulates to bed. patient laying on bed on rt side, wound on rt buttock,moistened packing with saline, removed, patient tolerated well, packing had drainage serosang.wound bed beefy red. seton drain intact, it runs into the rectum and comes out the wound. Able to insert q tip 4 cm north of wound. packed wound with 2 inch kerlix. covered with abd. tolerated well. Dr Buenrostro in to see patient, examines wound before nurse packed woound. Dr. Buenrostro aware of medicaid approval, he will make referral to [facility] for colorectal surgeon as well as system validation engineer
[2023-04-18 12:44] VITALS: BP 148/91; PULSE 98; RESP 18; TEMP 36.7; O2SAT 97
[2023-04-19 14:03] VITALS: BP 128/78; PULSE 88; RESP 16; TEMP 36.9; O2SAT 97
--- NOTE | 2023-04-19 14:05 | PC.NURSE ---
Abd over rt buttock wound removed scant amount of bloody drainage noted. packing moistened with ns, removed. noted purulent drainage on packing near bottom of wound, very odiforous. irrigated wound with nss, wound measures approx 4 cm, which tunnels upwards, wound bed beefy red, seton drain remains in rectum and out through wound bed. repacked wound with gauze moistened, patient tolerated well. intact skin surrounding wound cleansed with soap and water, dried, skin prep applied. covered with abd. Released ambulatory
--- NOTE | 2023-04-20 12:30 | PC.NURSE ---
ABD dressing removed from right buttock with scant amount of serosanguineous drainage. Inspected the wound for packing, no packing present. Packed with kerlix moistened with NS using a cotton tip applicator. Drain still in place and intact. Wound covered with ABD dressing and new brief provided. Patient tolerated the procedure well an was released ambulatory.
--- NOTE | 2023-04-21 12:42 | PC.NURSE ---
right inner buttock wound dressing changed.Old kerlex removed. Moderate amount brown foul smelling drainage noted on abd pad. wound irrigated with large amount NS. New saline soaked Kelex inserted into wound. Patient tolerated with mod amount discomfort.
--- NOTE | 2023-04-22 13:46 | PC.NURSE ---
1230: Pt. to [facility] amb. accompanied by grandmother and girlfriend. Pt. to bed. Removes bottoms. ABD dressing removed from in b/w buttocks. Packing to right adolfo-anal area removed with mod. amount serosang. drainage observed. Seton drain intact. Wound approximately diameter of nickel. Edges well defined. Irrigated wound with saline and packed with saline soaked gauze dressing. Covered with ABD dressing and held in place with depends undergarment. Pt. tolerated procedure with min. c/o. 1245: Pt. d/c'd amb. to home with family.
[2023-04-23 12:30] VITALS: BP 116/70; BP 135/81; BP 136/89; PULSE 100; PULSE 82; PULSE 86
--- NOTE | 2023-04-23 14:16 | PC.NURSE ---
Arrival ambulatory, patient continues to wear depends to hold dressing(abd) in place on rt buttock. noted quarter size bloody spot on abd. removed packing from wound on rt buttuck near rectum. smallamount of packing removed, distal part of packing noted to have purulent foul smelling drainage, irrigated wound with NSS, cleansed skin surrounding wound with soap and water, wound measurements, able to tunnel up approx 4.5 cm, wound looks beefy red with some bright red bleeding noted. Packed with approx 1/2 of 4x4 moistened with NSS, Seton drain remains in rectum and coming out of wound, patient tolerated dressing change well. skin surrounding wound clean and dry. skin prep applied to intact skin surrounding wound. covered with abd held in place with depends. Note patients heart rate is often tachycardic, see orthostatic VS. Patient denies any complaints of dizziness, shortness of breath etc related to tachycardia.
[2023-04-24 12:50] VITALS: BP 138/82; PULSE 111; RESP 18; TEMP 37.2; O2SAT 99
--- NOTE | 2023-04-25 12:29 | PC.NURSE ---
Packing removed from right perianal wound. Mod amount brown green drainage noted on packing. Wound irrigated with saline. Saline soaked packing reapplied. Drain present. ABD dressing applied. Patient tolerated with minimul discomfort
[2023-04-26 12:43] VITALS: BP 135/84; PULSE 102; RESP 18; TEMP 36.4; O2SAT 100
--- NOTE | 2023-04-27 12:44 | PC.NURSE ---
Patient laying on his left side, packing removed, slight odor observed. Irrigated with NS and repacked with gauze. Drain still in tact and ABD dressing applied on top. Patient tolerated the procedure well.
--- NOTE | 2023-04-29 12:32 | PC.NURSE ---
1215: Pt. to [facility] amb. for daily dressing change. Pt. to side lying position on bed. Packing to right inner buttocks removed and mod. amount serosang. drainage. Seton drain in place. Small square sized wound flushed with NSS. Packed with saline soaked 2x2 dressing and covered with ABD. Secured in place with depends undergarment. Pt. tolerated with minimal c/o pain. D/c'd home with grandmother. Pt. to see surgeon in [place] tomorrow. Will follow up with further instructions for wound care.
[2023-04-29 12:57] LABS: Anion Gap 12.6; BUN Creatinine Ratio 9.6; Carbon Dioxide 29.2 mmol/L (21.0-32.0); Chloride 105 mmol/L (98-107); Estimated GFR (African America >60 (>=60); Estimated GFR (Non-African Ame >60 (>=60); Glucose 94 mg/dL (74-106); Potassium 3.8 mmol/L (3.5-5.1); Sodium 143 mmol/L (136-145)
[2023-05-01 13:24] VITALS: PULSE 91; RESP 16; TEMP 36.4; O2SAT 98
--- NOTE | 2023-05-01 13:26 | PC.NURSE ---
1245 Arrival ambulatory to infusion center. Patient had appt in [place] with colorectal surgeon on 04/30 at [facility]. Patient states he was told wound didn't need repacked, but had appt with Dr. Leon who feels it need to be packed. Old packing removed which was the end of a 4x4 that was placed by surgeon, old packing had green purulent foul smelling drainage noted, seton drain remains coming from wound and out rectum. Irrigated wound with NSS. wound on rt buttock near rectal area, opening approx 1/2 cm opening. able to insert cotton swab approx 4.5 cm, wound bed appears pink beefy colored. Packed with 1/4 nugauze moistened with ns. covered with DSD, held in place with underwear. Discussed with patient he sound be taking showers, wash area gently with soap and water and rinse, can try placing DSD over area and wearing tight fitting underwear to hold dressing in place. Advised patient to make appt with Dr Buenrostro to get his recommendation on dressings. patient verbalized understanding
--- NOTE | 2023-05-02 13:30 | PC.NURSE ---
1230 Arrival ambulatory to [facility]. Patient stated he would like to leave wound unpacked, as sierra had recommended. Wound packing removed. irrigated with ns, 0ld dressing had purulent greenish drainage noted on old packing. covered wound with abd. Instructed to shower wash area with soap and water, rinse with water blot dry and apply dry dressing over wound and hold in place with underwear, verbalized understanding. Given our phone number and told to patient to call if he had any questions or concerns
== END 2023-05-02 23:59 | disposition home or self-care (01) ==
LOC: INF 07:27
PROVIDERS: Visit Provider Internal Medicine
DX: K61.0 Anal abscess (principal)
CPT/HCPCS: 36415; 80048

== ENCOUNTER 2024-02-13 18:04 | Emergency (ER) | payer MEDICAID, SELFPAY ==
--- OUTSIDE RECORDS SUMMARY | 2024-02-13 18:14 | XMS_ITS | CCD ---
Author Organization [facility] Care Team Providers Care Securities Counselor Name Role Phone DR WEN KOCH Consulting Unavailable MISC, DR BENNETT Primary Care Unavailable DR WEN KOCH Attending Unavailable ZEE, DR CARVER Admitting Unavailable SHAIKH MEJIA Primary Care Physician Unavailable Primary Care Provider UnavailSantos Law Attending Unavailable Santos BUENROSTRO Referring Unavailable Niko Shukla Attending Unavaila SHAIKH Valentin Referring Unavailable Santos BUENROSTRO Attending Unavailable Santos BUENROSTRO Attending Unavailable Shaikh Mejia MD Primary Care Provider SHAIKH MEJIA Attending Unavailable SHAIKH MEJIA Attending Unavailable SHAIKH MEJIA Attending Unavailable SHAIKH MEJIA Attending Unavailable Unavailable Primary Care Provider UnavailARNOLD Frazier Attending Unavailable ALEXIS MEJIA Attending Unavailable ARNOLD TINSLEY Referring Unavailable ARNLOD TINSLEY Attending Unavailable SYLVIA CANCHOLA Attending Unavailable SYLVIA CANCHOLA Referring Unavailable SYLVIA CANCHOLA Attending Unavailable SYLVIA CANCHOLA Referring Unavailable ARNOLD TINSLEY Referring Unavailable SYLVIA CANCHOLA Attending Unavailable Medications Current Medications Medication Drug Class(es) Dates Sig (Normalized) Sig (Original) amoxicillin 875 mg / clavulanate 125 mg oral tablet (2 sources) Penicillin-class Antibacterial Start: 07-15-2023 End: 07-20-2023 take 1 tablet by mouth in the morning amoxicillin-clavul anate (Augmentin) 875-125 MG tablet Indications: URTI (acute upper respiratory infection) Take 1 tablet (875 mg) by mouth in the morning and 1 tablet (875 mg) before bedtime. Do all this for 5 days. 10 tablet 0 07/15/2023 07/20/2023 Active benzonatate 100 mg oral capsule (2 sources) Non-narcotic Antitussive Start: 07-15-2023 End: 07-22-2023 take 1 capsule by mouth three times daily as needed for cough benzonatate (Tessalon Perles) 100 MG capsule Indications: URTI (acute upper respiratory infection) Take 1 capsule (100 mg) by mouth 3 (three) times a day as needed for cough for up to 7 days Do not crush or chew. 20 capsule 0 07/15/2023 07/22/2023 Active enteric contrast (will be provided with radiology test) (8 sources) Start: 07-05-2023 enteric contrast (will be provided with radiology test) For MRI ENTEROGRAPHY WO/W Administer, As Directed One Time Only, via Oral, Rectal, both Oral and Rectal, Enteric Tube, Stoma or Indwelling Catheter, Enteric Contrast as designated per enteric contrast guidelines 1 Each 07/05/2023 Active Start: 07-05-[address] (will be provided with radiology test) For MRI ENTEROGRAPHY WO/W Administer, As Directed One Time Only, via Oral, Rectal, both Oral and Rectal, Enteric Tube, Stoma or Indwelling Catheter, Enteric Contrast as designated per enteric contrast guidelines 1 Each 0 07/05/2023 Active Comment on above: For MRI ENTEROGRAPHY WO/W Administer, As Directed One Time Only, via Oral, Rectal, both Oral and Rectal, Enteric Tube, Stoma or Indwelling Catheter, Enteric Contrast as designated per enteric contrast guidelines escitalopram 20 mg oral tablet (13 sources) Serotonin Reuptake Inhibitor Start: 07-15-19 24 End: 09-13-19 24 take 1 tablet by mouth in the morning escitalopram (Lexapro) 20 MG tablet Indications: MEGAN (generalized anxiety disorder) (CMS/HCC) Take 1 tablet (20 mg) by mouth in the morning. 30 tablet 1 07/15/2023 09/13/2023 Active Start: 07-01-2023 End: 08-30-2023 escitalopram oxalate (LEXAPR O) 10 mg tablet Take 10 mg by mouth. 07/01/2023 Active Comment on above: Take 10 mg by mouth. glucagon (rdna) 1 mg injection (8 sources) Antihypoglycemic Agent Start: inject 1 mg intravenously once glucagon (GLUCAGEN) 1 mg/mL injection Inject 1 mg intravenously one time only for 1 dose. For MRI Enterography, Inject 1 mg intravenously, as directed. Slow push at the appropriate time during MRI Scan 1 Each 07/05/2023 Active Comment on above: Inject 1 mg intravenously one time only for 1 dose. For MRI Enterography, Inject 1 mg intravenously, as directed. Slow push at the appropriate time during MRI Scan iv contrast (will be provided with radiology test) (8 sources) Start: iv contrast (will be provided with radiology test) MRI Enterography Inject, intravenously, once for 1 dose. No IV access, insert saline lock prior to the beginning of sedation, infusion, injection of imaging exam. Discontinue saline lock post exam. If Pt. has a central line or IVAD, may access for administration according to line specific nursing protocol. Once exam is complete flush line and de-access according to line specific nursing protocol in the MR contrast administration guidelines link. 1 Each 07/05/2023 Active Start: 07-05-2023 iv contrast (w ill be provided with radiology test) MRI Enterography Inject, intravenously, once for 1 dose. No IV access, insert saline lock prior to the beginning of sedation, infusion, injection of imaging exam. Discontinue saline lock post exam. If Pt. has a central line or IVAD, may access for administration according to line specific nursing protocol. Once exam is complete flush line and de-access according to line specific nursing protocol in the MR contrast administration guidelines link. 1 Each 0 07/05/2023 Active Comment on above: MRI Enterography Inj ect, intravenously, once for 1 dose. No IV access, insert saline lock prior to the beginning of sedation, infusion, injection of imaging exam. Discontinue saline lock post exam. If Pt. has a central line or IVAD, may access for administration according to line specific nursing protocol. Once exam is complete flush line and de-access according to line specific nursing protocol in the MR contrast administration guidelines link. polyethylene glycol 3350 with electrolytes Oral Pwdr for Beena 4000 mL (NuLytely) (2 sources) Start: 02-02-20 take 1 dose by mouth once polyethylene glycol 3350 with electrolytes Oral Pwdr for Beena 4000 mL (NuLytely) See Instructions, 1 EA, Refill(s) 0, per physician prior to colonoscopy, [id number], 178, cm, 02/01/22 13:38:00 EDT, Height/Length Dosing, 63.4, kg, 02/01/22 13:38:00 EDT, Weight Dosing Start Date: 02/01/22 Status: Ordered predniSONE 20 mg oral tablet (2 sources) Start: 07-15-19 End: 07-20-19 24 take 1 tablet by mouth in the morning predniSONE (Deltasone) 20 MG tablet Indications: URTI (acute upper respiratory infection) Take 1 tablet (20 mg) by mouth in the morning and 1 tablet (20 mg) before bedtime. Do all this for 5 days. 10 tablet 0 07/15/2023 07/20/2023 Active Problems Active Problems Problem Classification Problem Date Documented Date Episodic/Chronic Administrative/soci al admission (1 source) Patient encounter status; Translations: [Dietary counseling and surveillance] 05-06-2023 Episodic Allergic reactions (3 sources) Allergic condition; Translations: [Allergy, unspecified, initial encounter] Onset: 3 05-01-2023 Episodic Anal and rectal conditions (11 sources) Ischiorectal abscess; Translations: [Perirectal abscess] Onset: 4 04-10-2023 Episodic Anxiety disorders (12 sources) Anxiety disorder, unspecified; Translations: [Anxiety] Onset: 2 Chronic Asthma (4 sources) Exercise-induced asthma 12-02-2018 Chronic Attention-deficit, conduct, and disruptive behavior disorders (4 sources) Adult attention deficit hyperactivity disorder 10-12-2019 Chronic Attention-deficit, conduct, and disruptive behavior disorders (4 sources) Attention deficit hyperactivity disorder, combined type 12-01-2019 Chronic Attention-deficit, conduct, and disruptive behavior disorders (3 sources) Attention deficit hyperactivity disorder, predominantly inattentive type; Translations: [Attention-deficit hyperactivity disorder, predominantly inattentive type] Onset: 3 05-01-2023 Chronic Disorders of lipid metabolism (8 sources) Hypercholesterolemia; Translations: [Mixed hypercholesterolemia and hypertriglyceridemia] 12-02-2018 Chronic Essential hypertension (4 sources) Hypertensive disorder 09-09-2019 Chronic Gastroduodenal ulcer (except hemorrhage) (5 sources) Gastric ulcer; Translations: [Gastric ulcer, unspecified as acute or chronic, without hemorrhage or perforation] Onset: 2 Chronic Mood disorders (7 sources) Bipolar affective disorder, currently manic, mild; Translations: [Depressive disorder] 12-01-2019 Chronic Mood disorders (4 sources) Mood disorders; Translations: [Depression, unspecified depression type] Onset: 4 07-01-2023 Other nutritional; endocrine; and metabolic disorders (1 source) Abnormal weight loss; Translations: [Abnormal weight loss] Onset: 2 Episodic Other nutritional; endocrine; and metabolic disorders (4 sources) Weight loss 02-01-2022 Episodic Other upper respiratory infections (4 sources) Acute upper respiratory infection; Translations: [Acute upper respiratory infection, unspecified] Onset: 4 07-15-2023 Episodic Regional enteritis and ulcerative colitis (16 sources) Crohn's disease of small AND large intestines; Translations: [Crohn's disease of both small and large intestine without complications] Onset: 2 Chronic Substance-related disorders (7 sources) Smoker; Translations: [Nicotine dependence] Onset: 3 09-09-2019 Chronic Comment on above: Added secondary to d ocumentation in Social History. Unclassified (1 source) NO SHOW 07-16-2023 Past or Other Problems Problem Classification Problem Date Documented Da te Episodic/Chronic Acute and unspecified renal failure (3 sources) Acute injury of kidney; Translations: [Acute kidney failure, unspecified] Onset: 05-01-2023 Resolved: 05-01-2023 05-01-2023 Episodic Results Test Name Value Interpretation Reference Range Facility [facility] 01-29-2024 [facility] Telephone (GASTGABRIELE) AMANDEEP MARTÍNEZ ([id number]) 89 M Date Time Provider Department 01/29/24 SYLVIA CANCHOLA During your visit today, we recorded the following information about you: Sylvia Canchola MD, PhD 01/29/2024 12:53 PM Signed Missed colon appt called lm Allergies As of Date: 01/29/2024 (No Known Allergies) Date Reviewed: 08/29/2023 Reviewed by: Rasta Gastelum, RN - Fully Assessed Prescriptions as of 01/29/2024 - escitalopram oxalate (LEXAPRO) 10 mg tablet Take 10 mg by mouth. - iv contrast (will be provided with radiology test) MRI Enterography Inject, intravenously, once for 1 dose. No IV access, insert saline lock prior to the beginning of sedation, infusion, injection of imaging exam. Discontinue saline lock post exam. If Pt. has a central line or IVAD, may access for administration according to line specific nursing protocol. Once exam is complete flush line and de-access according to line specific nursing protocol in the MR contrast administration guidelines link. - enteric contrast (will be provided with radiology test) For MRI ENTEROGRAPHY WO/W Administer, As Directed One Time Only, via Oral, Rectal, both Oral and Rectal, Enteric Tube, Stoma or Indwelling Catheter,? Enteric Contrast as designated per enteric contrast guidelines - glucagon (GLUCAGEN) 1 mg/mL injection Inject 1 mg intravenously one time only for 1 dose. For MRI Enterography, Inject 1 mg intravenously, as directed. Slow push at the appropriate time during MRI Scan Problem List As Of Date: 01/29/2024 (None) Encounter Status:[facility] AMANDEEP MARTÍNEZ ([id number]) [birth year] M Date Time Provider Department 08/20/23 SYLVIA CANCHOLA GASTVA During your visit today, we recorded the following information about you: Sylvia Canchola MD, PhD 08/20/2023 9:08 AM Signed If something opens up can we get him in sooner Afua Espino 08/20/2023 10:34 AM Signed Added to wait list Jaleesa Brizuela 09/02/2023 4:05 PM Signed Left message on machine to offer this Saturday Jaleesa Brizuela 09/03/2023 3:15 PM Signed Saturday is now filled - looking for other openings. Afua Espino 09/23/2023 11:37 AM Signed Left message on voicemail for patient to call back to schedule for 11/18 Afua Espino 09/24/2023 9:24 AM Signed Left message on voicemail for patient to call and reschedule to November 18 Jaleesa Brizuela 10/02/2023 9:45 AM Signed Called and left detailed message for patient to call to schedule procedure with gastroenterology. Will follow up. Patient provided with direct extension to reach surgical coordinators. If patient calls back, please transfer to [phone] or [phone]. Jaleesa Brizuela 10/04/2023 10:[address] Canchola is requesting that the patient have procedure November 18 - Called and Left another message for patient to call. Sent Nangatehart - Jaleesa Brizuela 10/08/2023 12:32 PM Signed Left another VM to move procedure date to 11/19/[address] Canchola's request - Patient has not read Nangatehart. Called emergency contact (grandparent) listed, no answer no machine Jaleesa Brizuela 10/10/2023 12:02 PM Signed Final attempt requesting to move up procedure - If patient does not return the call, will no longer hold appointment Allergies As of Date: 08/20/2023 (Not on File) Date Reviewed: 07/05/2023 Reviewed by: Amairani Cortes OCCA - Fully Assessed Prescriptions as of 10/10/2023 - escitalopram oxalate (LEXAPRO) 10 mg tablet Take 10 mg by mouth. - iv contrast (will be provided with radiology test) MRI Enterography Inject, intravenously, once for 1 dose. No IV access, insert saline lock prior to the beginning of sedation, infusion, injection of imaging exam. Discontinue saline lock post exam. If Pt. has a central line or IVAD, may access for administration according to line specific nursing protocol. Once exam is complete flush line and de-access according to line specific nursing protocol in the MR contrast administration guidelines link. - enteric contrast (will be provided with radiology test) For MRI ENTEROGRAPHY WO/W Administer, As Directed One Time Only, via Oral, Rectal, both Oral and Rectal, Enteric Tube, Stoma or Indwelling Catheter,? Enteric Contrast as designated per enteric contrast guidelines - glucagon (GLUCAGEN) 1 mg/mL injection Inject 1 mg intravenously one time only for 1 dose. For MRI Enterography, Inject 1 mg intravenously, as directed. Slow push at the appropriate time during MRI Scan Problem List As Of Date: 08/20/2023 (None) Encounter Status:Closed by AFUA ESPINO on 09/16/23 Normal [facility] Consultation Noteon 07-09-19 Consultation Note [id number] Normal [facility] CNOVon 07-05-2023 CNOV Office Visit (GASTAV ) AMANDEEP MARTÍNEZ ([id number]) 89 M Date Time Provider Department 07/05/23 1:00 PM SYLVIA CANCHOLA GASTGABRIELE During your visit today, we recorded the following information about you: Pulse Blood pressure Weight Height 76/minute 142/96 72.3 kg 1.778 m Syliva Canchola MD, PhD 07/06/2023 9:03 PM Signed CLINICAL HISTORY: This is a 22 year old male who presents today in consultation for an evaluation of Crohns Pt states 2-3 BM's daily, regular to soft stools with occasional bleeding. Here with grandmother who helps with history a little Was dx in 2019 He was taking 3 bites and got sick, no appetite, would disappear Sitting on toilet 15x a day Bad abdominal pain, cramping Diarrhea, etc For some months a whole school year Then was waking up and vomiting for 1 months Lost 70# in 06/04 As on budesonide and pentasa He stopped all this Was ok off and on, had issues digesting food, stomach problems Off and on with pain diarrhea Now with the seton has pain Before was having blood He was down to 140 Now he is gaining weight and feels very hungry Stomach upset Has missed work Was there for 5 days The abx damaged his kidneys extraintestinal manifestations of IBD Joints crack Skin on the back of his head on his scalp has patch of ? 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 Pneumo - Hep B vax PPD Hep A vax VZV vax HPV vax Flu Pertussis Skin Bone Smoking vapes COVID Mental health depressed --he is being treated wellbutrin had si, not sure if that's helping or not rsv VITALS: Blood pressure 142/96, pulse 76, height 177.8 cm (5' 10 ), weight 72.3 kg (159 lb 6.3 oz), SpO2 97%. ALLERGIES: Patient has no allergy information on record. MEDICATIONS: Current Outpatient Medications Medication Sig Dispense Refill escitalopram oxalate (LEXAPRO) 10 mg tablet Take 10 mg by mouth. No current facility-administered medications for this visit. PAST MEDICAL HISTORY: PAST MEDICAL HISTORY Diagnosis Date ADHD (attention deficit hyperactivity disorder) Bipolar 1 disorder (HCC) Crohn's colitis, with abscess (HCC) diagnosed 2019 HTN (hypertension) PAST SURGICAL HISTORY: PAST SURGICAL HISTORY Procedure Laterality Date COLONOSCOPY SCREENING 2019 Dr Farias EGD W/O [facility] SPEC VARICIES INJ 2019 Dr Dinora CHUN 04/07/2023 at [facility] SETON PLACEMENT 04/10/2023 Dr Buenrostro at [place] FAMILY HISTORY: No family GI history SOCIAL HISTORY: Work up to date: Colonoscopy Reviewed with patient during visit today. REVIEW OF SYSTEMS: GENERAL: No weight loss, malaise or fevers., SEE HPI HEENT: Negative for frequent or significant headaches, NECK: Negative for lumps, goiter, pain and significant neck swelling RESPIRATORY: Negative for cough, wheezing or shortness of breath. CARDIOVASCULAR: Negative for chest pain, leg swelling or palpitations. GI: See HPI MUSCULOSKELETAL: Negative for joint pain or swelling, back pain or muscle pain. SKIN: plaque on scalp PSYCH: Negative for sleep disturbance, mood disorder a+++ recent psychosocial stressors. HEMATOLOGY/LYMPHOLOGY Negative for prolonged bleeding, bruising easily or swollen nodes. ENDOCRINE: Negative for cold or heat intolerance, polyuria, polydipsia and goiter. All other reviewed and negative other than HPI. PHYSICAL EXAMINATION: GENERAL APPEARANCE: Well developed and well nourished. SKIN: Skin color, texture, turgor normal. No rashes or lesions. Plaque on scalp EYES: Conjunctiva normal without icterus. OROPHARYNX: lips, mucosa, and tongue normal, teeth and gums normal NECK: Supple, full range of motion, no lymphadenopathy, normal thyroid, LUNGS: Normal breath sounds, Clear to auscultation, No wheezes, No crackles. HEART:Normal PMI, Regular rate and rhythm, Normal heart sounds, S1 and S2 and No murmurs. NEURO: Alert and oriented in no acute distress. ABDOMEN: Normal bowel sounds, abdomen flat with no distention, Soft, non-tender, no hepatomegaly. no palpable masses, no abdominal bruits, no rebound and no rigidity. EXTREMITIES:Extremities normal, No deformities, No skin discoloration, No edema . RECENT LABS: CBC: No results found for: WBC , HB , MCV , PLT , NEUT , LYMPHP Hepatic Function Panel: No results found for: ALB , TBILI , CBILI , ALKPHOS , AST , ALT , TPROT No results found for: WBC , RBC , HB , HCT , MCV , MCH , MCHC , RDWCV , PLT , MPV , GLUC , BUN , CREAT , NA , K , CHLOR , CO2 , TPROT , ALB , CA , ALKPHOS , TBILI , AST , ALT , CHOL , TG , BETAMM Assessment/Plan: (K50.913) Crohn's disease with fistula, unspecified (more content not included)... Normal [facility] [place] 07-05-2023 [facility] Telephone (GASTAV) TANYAAMANDEEP ([id number]) 89 M Date Time Provider Department 07/05/23 SYLVIA CANCHOLA During your visit today, we recorded the following information about you: Saira Meenu 07/05/2023 2:06 PM Signed Pt was told to have a vv after all of his test were complete but the next available is not till April. Should I offer appt with Sylvia A? Please advise Allergies As of Date: 07/05/2023 (Not on File) Date Reviewed: 07/05/2023 Reviewed by: Amairani Cortes OCCA - Fully Assessed Reason for Visit: Appointment [[id number]] Prescriptions as of 07/05/2023 - escitalopram oxalate (LEXAPRO) 10 mg tablet Take 10 mg by mouth. - iv contrast (will be provided with radiology test) MRI Enterography Inject, intravenously, once for 1 dose. No IV access, insert saline lock prior to the beginning of sedation, infusion, injection of imaging exam. Discontinue saline lock post exam. If Pt. has a central line or IVAD, may access for administration according to line specific nursing protocol. Once exam is complete flush line and de-access according to line specific nursing protocol in the MR contrast administration guidelines link. - enteric contrast (will be provided with radiology test) For MRI ENTEROGRAPHY WO/W Administer, As Directed One Time Only, via Oral, Rectal, both Oral and Rectal, Enteric Tube, Stoma or Indwelling Catheter,? Enteric Contrast as designated per enteric contrast guidelines - glucagon (GLUCAGEN) 1 mg/mL injection Inject 1 mg intravenously one time only for 1 dose. For MRI Enterography, Inject 1 mg intravenously, as directed. Slow push at the appropriate time during MRI Scan Problem List As Of Date: 07/05/2023 (None) Encounter Status:Closed by MEENU GIL on 07/05/23 [facility] CNOVon 06-11-2023 CNOV Office Visit (CORSAV ) AMANDEEP MARTÍNEZ ([id number]) 89 M Date Time Provider Department 06/11/23 1:20 PM ARNOLD TINSLEY During your visit today, we recorded the following information about you: Pulse Blood pressure Weight Height 66/minute 140/74 72.8 kg 1.778 m Arnold Tinsley MD 06/11/2023 2:20 PM Signed [facility] NOTE June 11, 2023 Amandeep Martínez 22 year old Chief Complaint: perianal Crohn's disease Brief History: 22 year old man with crohn's disease with perianal disease with hospitalization in Mar 2023 for perianal abscess, s/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 He is not any medications for his crohns and awaiting re-establishment of care with GI. He presents today for follow up Interval events: Wound is healing and drainage is improving. Denies perianal pain, swelling or fevers. His weight up one lbs. Still pending evaluation with GI. Anorectal Surgeries: -04/07/2023- EUA, IANDD of abscess, lanette drain placement -Dr Lauren at [facility] -04/10/2023- EUA, lanette removal,seton placement - Dr Buenrostro at [facility] Scan on 04/23/2023 10:19 AM by Kera Lawson: OPERATIVE NOTE 04/07/2023 Office notes follow up: Scan on 04/23/2023 10:16 AM by Kera Lawson: [facility] DOCUMENTS 04/12/23 PAST MEDICAL HISTORY Diagnosis Date ADHD (attention deficit hyperactivity disorder) Bipolar 1 disorder (HCC) Crohn's colitis, with abscess (HCC) diagnosed 2019 HTN (hypertension) PAST SURGICAL HISTORY Procedure Laterality Date COLONOSCOPY SCREENING 2019 Dr Dinora PETER W/O [facility] SPEC VARICIES INJ 2019 Dr Dinora CHUN 04/07/2023 at [facility] SETON PLACEMENT 04/10/2023 Dr Buenrostro at [place] No current outpatient medications on file. No current facility-administered medications for this visit. ALLERGIES Not on File No family history on file. Physical Exam: BP 140/74 Pulse 66 Ht 177.8 cm (5' 10 ) Wt 72.8 kg (160 lb 7.9 oz) BMI 23.03 kg/m? General Appearance: Well appearing, alert, in no acute distress, well-hydrated, well nourished. Anorectal: External exam reveals right anterolateral transsphincteric fistula with seton in place with small external opening. Prior large external wound mostly healed. No associated redness or swelling. Mild purulent drainage. 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 Perianal infection nearly resolved. Advised patient to rotate the seton daily to keep tract patent and prevent re-accumulation of fluid leading to abscess. Warning signs discussed Needs to establish care with GI to decide on medical management of crohn's prior to definitive treatment of fistula. Patient is scheduled to see Dr. Sharma next sat but would prefer to see GI at [place] as it is closer to his home. Will try to facilitate. RTC 3months Medical Decision Making: Data Reviewed: Tests AND Documents Reviewed/ordered: Review of prior notes from last clinic note I have independently interpreted: n/a I have discussed Amandeep Martínez's treatment plan and/or results with Patient and grandmother, Elizabeth. Risk of morbidity, mortality and/or complications of treatment plan: bessy Tinsley MD Colorectal Surgery Allergies As of Date: 06/11/2023 (Not on File) Date Reviewed: 06/11/2023 Reviewed by: Trice Cobb RN - Fully Assessed Reason for Visit: Established Patient [175] Post Op [174] Cmt: Est pt post op f/up Primary Visit Diagnosis:Crohn's disease of large intestine with fistula (HCC) [K50.113] Problem List As Of Date: 06/11/2023 (None) Disposition: Return in about 3 months (around 09/10/2023). Follow-up and Disposition History for Encounter Date Provider Department Center 06/11/2023 [id number]-FUPRIBDVARNOLD TINSLEY REJ Encounter Status:Closed by ARNOLD TINSLEY on 06/11/23 [facility] CNOVon 04-30-2023 CNOV Office Visit (CORSAV ) AMANDEEP MARTÍNEZ ([id number]) 89 M Date Time Provider Department 04/30/23 3:00 PM ARNOLD TINSLEY During your visit today, we recorded the following information about you: Pulse Blood pressure Weight Height 95/minute 131/71 72.2 kg 1.778 m Arnold Tinsley MD 04/30/2023 9:00 PM Signed COLORECTAL SURGERY Amandeep Martínez 22 year old This consult was requested by Dr. Buenrostro / general surgery- [facility] and my final recommendations will be communicated to the requesting health care provider by way of the shared medical record for internal providers or letter via the [place] Postal Service for external providers. Chief Complaint: perianal Crohn's History of Present Illness: Amandeep Martínez is a 22 year old man who presents with perianal Crohn's disease. Patient was first diagnosed with Crohn's disease back in 2019 after undergoing a colonoscopy with Dr. Farias. He was initially managed with pentasa and budesonide back in early 2020 but reports that he has not been on it for a while. He developed a large perianal abscess at the end of March 2023 resulting in sepsis and admission to the hospital. He underwent a EUA, IANDD of abscess with lanette placement on 04/07/2023 and taken back to the OR 3 days later for EUA, Lanette removal and seton placement with Dr. Ruth. He was discharged and reports that he has been slowly improving. He is still having mild drainage but no pain or bleeding. He has been going to the hospital to undergo packing of his wound on a daily basis. He denies any abdominal pain, nausea, vomiting, any hematochezia, weight loss, fevers or chills. He has a 1-2 soft bowel movements every day without straining. He has never had any anal disease prior to this. Of note, his initial work up for crohns was in setting of perianal discomfort presumed to be from hemorrhoids, which ultimately self resolved. His last colonoscopy was in 2019 at the time of his diagnosis. He denies any cigarette smoking but he does vape. Anorectal Surgeries: -04/07/2023- LAY, IANDD of abscess, lanette drain placement -Dr Lauren at [facility] -04/10/2023- LAY, lanette removal,seton placement - Dr Buenrostro at [facility] Scan on 04/23/2023 10:19 AM by Kera Lawson: OPERATIVE NOTE 04/07/2023 Office notes follow up: Scan on 04/23/2023 10:16 AM by Kera Lawson: [facility] GENERAL SURGERY DOCUMENTS 04/12/23 PAST MEDICAL HISTORY Diagnosis Date ADHD (attention deficit hyperactivity disorder) Bipolar 1 disorder (HCC) Crohn's colitis, with abscess (HCC) diagnosed 2019 HTN (hypertension) PAST SURGICAL HISTORY Procedure Laterality Date COLONOSCOPY SCREENING 2019 Dr Farias EGD W/O [facility] SPEC VARICIES INJ 2019 Dr Dinora CHUN 04/07/2023 at [facility] SETON PLACEMENT 04/10/2023 Dr Buenrostro at [place] No current outpatient medications on file. No current facility-administered medications for this visit. ALLERGIES Not on File No family history on file. Physical Exam: BP 131/71 Pulse 95 Ht 177.8 cm (5' 10 ) Wt 72.2 kg (159 lb 1.6 oz) SpO2 100% BMI 22.83 kg/m? General Appearance: Well appearing, alert, in no acute distress, well-hydrated, well nourished. 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 No abscess or erythema noted. Digital rectal exam and anoscopy deferred. 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 He is not any medications for his crohns and awaiting re-establishment of care with GI. I outlined the pathophysiology of perianal fistula in setting of crohns to the patient and his grandmother. I explained to them that the most important treatment strategy is to get him started on Crohn's medication to help control his perianal inflammation. I also explained the importance of giving adequate time for the infection and drainage to improve and allow the tract to scar. I explained that once his Crohn's is medically optimized, we can proceed with next step regarding management of his fistula. I discussed the options of permanent seton vs trial of seton removal vs LIFT procedure. I explained the failure rate of LIFT in setting of Crohn's but patient would like to pursue this once he is medically optimized. Follow up in 4-6 weeks to ensure perianal wound is healing Patient will like to establish care with GI at [facility] referral. Also wants nutrition referral for diet counseling All questions (more content not included)... Normal [facility] Lab Reportson 04-29-2023 Lab Reports [id number]#1.00TIFF Normal [facility] Lab Reportson 04-15-2023 Lab Reports [id number]#1.00TIFF Normal [facility] General Surgery Office/Clini c Noteon 04-14-2023 General Surgery Office/Clinic Note Chief Complaint follow up perirectal abscess HPI Staff Presents to follow up perirectal abscess. History of Present Illness 22 yo male with h/o Crohn's disease diagnosed by Dr Farias after endoscopy 08/2019; patient off medication for several years, noncompliant with GI f/u; developed large right perirectal abscess with fistula in ano; underwent drainage and seton placement 04/07/[address] at [facility], 2 days ago had exam under anesthesia, removal of lanette drain from abscess cavity and packing of abscess cavity with kerlix gauze, damp to dry; patient discharged yesterday; getting packing changed daily at hospital; denies drainage, some soreness; had acute kidney injury during hospitalization; improving; voiding well, has f/u Saturday with Dr Tian; does not want dressing changed today or examined because he has not taken any pain medication; no fevers. Review of Systems ROS - Provider Constitutional: no fever, no sweats, no weight loss. Eyes: no glasses, no blurred vision, no visual loss. ENMT: no dentures, no hoarseness, no swallowing difficulties, no hearing loss, no ear infection(s), no nose bleeds. Cardiovascular: normal blood pressure, no chest pain, regular heartbeat, no heart murmur. Respiratory: no shortness of breath, no cough, no asthma, no wheezing. Gastrointestinal: no nausea, no vomiting, no diarrhea, no constipation, no blood in stool, no change in bowel habits, no abdominal pain, no hepatitis. Genitourinary: no kidney stones, no urine infection, no dysuria. Musculoskeletal: no pain, no weakness. Skin: no changing moles, no rash, no skin lumps. Neurologic: no seizures, no epilepsy, no headache. Psychiatric: no emotional or psychiatric problem. Heme/Lymph: no bleeding problems, no anemia, no blood clots, no transfusions. Allergy/Immunologic: no swollen lymph nodes/glands, no IV drug abuse. Other: Additional ROS info: Except as noted in the above Review of Systems and in the History of Present Illness, all other systems have been reviewed and are negative or noncontributory. Assessment/Plan 1. Ischiorectal abscess (K61.39: Other ischiorectal abscess) drained, no active infection; patient getting daily wound packing at [facility], I will check wound during dressing change intermittently to monitor; call with problems/questions. 2. Ffnaloy-dn-muz (K60.3: Anal fistula) seton in place; patient denies any other symptoms of Crohn's flare up, no loose stools or bloody stools, no abd pain; has had trouble gaining weight; will require referred to gastroenterology and Colorectal surgery; patient currently trying to apply for Medicaid, if doesn't qualify, can apply for insurance through his job, but won't take effect until June. 3. Crohn's disease, small and large intestine (K50.80: Crohn's disease of both small and large intestine without complications) see # 1 Follow-up No qualifying data available Problem List/Past Medical History Ongoing Bipolar disorder, current episode manic without psychotic features, mild Crohn's disease, small and large intestine Fehznqu-bn-dgt Gastric erosion Hypertension Ischiorectal abscess Mixed hypercholesterolemia and hypertriglyceridemia Perirectal abscess Smoker Weight loss Historical ADD (attention deficit disorder) ADHD (attention deficit hyperactivity disorder), combined type Colonoscopy Esophagogastroduodenoscopy Exercise induced asthma Hypercholesterolemia Procedure/Surgical History Incision and drainage of perirectal abscess (04/06/2023), Esophagogastroduodenoscopy (08/17/2019), Colonoscopy. Medications No active medications Allergies No Known Allergies Social History Alcohol - Denies Alcohol Use, 08/15/2018 Substance Abuse - Low Risk, 08/11/2019 Current, Marijuana, Daily, 04/12/2023 Tobacco - High Risk, 08/05/2019 Former smoker, quit more than 30 days ago Tobacco Use:. Smokeless tobacco user within last 30 days, Current vaping or e-cigarette use Smokeless Tobacco Use:. Cigarettes, Vape, 0.75 per day. Previous treatment: Counseling. Yes, 04/12/2023 Family History Drug addiction: Mother and Father. Immunizations Vaccine Date Status Comments influenza virus vaccine, inactivated - Not Given Patient Refuses meningococcal conjugate vaccine 01/05/2016 Recorded influenza, whole 04/22/2012 Recorded human papillomavirus vaccine 04/22/2012 Recorded hepatitis A pediatric vaccine 04/22/2012 Recorded human papillomavirus vaccine 12/20/2011 Recorded varicella virus vaccine 10/16/2011 Recorded diphtheria/pertussis, acel/tetanus adult 10/16/2011 Recorded meningococcal conjugate vaccine 10/16/2011 Recorded human papillomavirus vaccine 10/16/2011 Recorded hepatitis A pediatric vaccine 10/16/2011 Recorded measles/mumps/rubella virus vaccine 08/23/2004 Recorded DTaP, unspecified formulation 08/23/2004 Recorded DTaP, unspecified formulation 11/13/2000 Recorded varicella virus vaccine 07/29/2000 Recorded measles/mumps/rubella virus (more content not included)... Normal [facility] Comment on above: Result Comment: Electronically Signed By : INDIRA HOLLIDAY, Santos Gilbert\.br\Date and Time Signed: 04/14/23 13:00 EST Ambulatory Visit Summaryon 1 06-12-2022 Ambulatory Visit Summary AMANDEEP MARTÍNEZ :2000 Visit Date:04/12/2023 Ambulatory Visit Instructions Your Care Team Attending Physician - INDIRA HOLLIDAY, Santos Gilbert Primary Care Physician - ROBERTO HOLLIDAY, [facility] Procedures Performed Incision and drainage of perirectal abscess (04/06/2023), Esophagogastroduodenoscopy (08/17/2019), Colonoscopy. Allergies No Known Allergies Problems Ongoing - Any problem that you are currently receiving treatment for. Bipolar disorder, current episode manic without psychotic features, mild Crohn's disease, small and large intestine Gastric erosion Hypertension Ischiorectal abscess Mixed hypercholesterolemia and hypertriglyceridemia Perirectal abscess Smoker Weight loss Historical - Any problem that you are no longer receiving treatment for. ADD (attention deficit disorder) ADHD (attention deficit hyperactivity disorder), combined type Colonoscopy Esophagogastroduodenoscopy Exercise induced asthma Hypercholesterolemia Patient Survey You may receive a survey via text or e-mail asking about your office visit. Please share your experience with us by completing your survey. We appreciate your feedback and thank you for choosing us for your care. [facility] Lab Reportson 04-11-2023 Lab Reports [id number]#1.00TIFF [facility] Operative Reporton 3 Operative Report [id number]#1.00TIFF [facility] Consultation Noteon 04-10-20 23 Consultation Note [id number]#1.00TIFF [facility] Lab Reportson 04-10-2023 Lab Reports [id number]#1.00TIFF [facility] Lab Reports [id number]#1.00TIFF Normal [facility] Operative Reporton Operative Report [id number]#1.00TIFF Normal [facility] Consultation Noteon 04-09-20 23 Consultation Note [id number]#1.00TIFF Normal [facility] Lab Reportson 04-09-2023 Lab Reports [id number]#1.00TIFF Normal [facility] Lab Reports [id number]#1.00TIFF Normal [facility] Lab Reports [id number]#1.00TIFF [facility] Vital Signs Date Time Vital Sign Value Performing Clinician Facility 07-15-2023 16:19-0500 Body height 177.8 cm Shaikh Roberto HOLLIDAY Work Phone: [facility] 07-15-2023 16:19-0500 Body mass index (BMI) [Ratio] 22.96 kg/m2 Shaikh Roberto HOLLIDAY Work Phone: [facility] 07-15-2023 16:19-0500 Body temperature 97.9 [degF] Shaikh Roberto HOLLIDAY Work Phone: [facility] 07-15-2023 16:19-0500 Body weight 72.58 kg Shaikh Roberto HOLLIDAY Work Phone: [facility] 07-15-2023 16:19-0500 Diastolic blood pressure 70 mm[Hg] Shaikh Roberto HOLLIDAY Work Phone: [facility] 07-15-2023 16:19-0500 Systolic blood pressure 110 mm[Hg] Shaikh Roberto HOLLIDAY Work Phone: [facility] 07-05-2023 13:08-0500 Body height 177.8 cm Sylvia Canchola MD, PhD Work Phone: [facility] 07-05-2023 13:08-0500 Body weight 72.3 kg Sylvia Canchola MD, PhD Work Phone: [facility] 07-05-2023 13:08-0500 Diastolic blood pressure 96 mm[Hg] Sylvia Canchola MD, PhD Work Phone: [facility] 07-05-2023 13:08-0500 Heart rate 76 /min Sylvia Canchola MD, PhD Work Phone: [facility] 07-05-2023 13:08-0500 SaO2% (BldA) [Mass fraction] 97 % Sylvia Canchola MD, PhD Work Phone: [facility] 07-05-2023 13:08-0500 Systolic blood pressure 142 mm[Hg] Sylvia Canchola MD, PhD Work Phone: [facility] 02-01-2022 13:36-0400 Blood Pressure Location Leyva SALAM [facility] 02-01-2022 13:36-0400 Diastolic blood pressure 74 mm[Hg] Leyva SALAM [facility] 02-01-2022 13:36-0400 Heart rate 64 /min Leyva SALAM [facility] 02-01-2022 13:36-0400 Respiratory rate 16 /min Leyva SALAM [facility] 02-01-2022 13:36-0400 Systolic blood pressure 129 mm[Hg] Leyva SALAM [facility] Encounters Encounter Date Encounter Type Care Provider Facility Start: 01-29-2024 End: 01-29-2024 Telephone encounter Sylvia Canchola MD, PhD Work Phone: Gastroenterology Start: 10-03-2023 E-mail encounter fro m caregiver Sylvia Canchola MD, PhD Work Phone: Gastroenterology Start: 10-03-2023 Patient encounter procedure Sylvia Canchola MD, PhD Work Phone: Gastroenterology Comment on above: appointment Start: 10-03-2023 Telephone encounter Sylvia Canchola MD, PhD Work Phone: Gastroenterology Start: 10-03-2023 ambulatory SYLVIA CANCHOLA Faci lity:[facility] Start: 08-26-2023 End: 08-26-2023 ambulatory SHAIKH ROBERTO Not Available Start: 08-20-2023 Telephone encounter Sylvia Canchola MD, PhD Work Phone: Gastroenterology Start: 08-20-2023 End: 08-20-2023 Telemedicine consultation with patient Sylvia Canchola MD, PhD Work Phone: [facility] Start: 08-20-2023 End: 08-20-2023 ambulatory Sylvia Canchola MD, PhD Work Phone: Gastroenterology Comment on above: Crohn's disease with fistula, unspecified gastrointestinal tract location (HCC) (Primary Dx); Depression, unspecified depression type Start: 08-13-2023 ambulatory Sylvia wick MD, PhD Work Phone: Gastroenterology Comment on above: update Start: 08-13-2023 E-mail encounter fro m caregiver Sylvia Canchola MD, PhD Work Phone: [facility] Start: 07-16-2023 End: 07-16-2023 ambulatory Richie Castelan PSYD Work Phone: Psychology Comment on above: NO SHOW (Primary Dx) ; Anxiety; Depression, unspecified depression type Start: 07-16-2023 End: 07-16-2023 Telemedicine consultation with patient Richie Castelan PSYD Work Phone: [facility] Start: 07-15-2023 End: 07-15-2023 ambulatory SHAIKH ROBERTO Not Available Start: 07-15-2023 End: 07-15-2023 Office outpatient visit 25 minutes Shaikh Roberto HOLLIDAY Work Phone: [facility] Comment on above: MEGAN (generalized anx iety disorder) (CMS/HCC) (Primary Dx); URTI (acute upper respiratory infection) Start: 07-15-2023 Doreen Mejia MD Work Phone: [facility] Start: 07-15-2023 Bamboo flowsheet Shaikh Roberto HOLLIDAY Work Phone: [facility] Start: 07-05-2023 End: 07-05-2023 [facility] Start: 07-05-2023 End: 07-05-2023 Patient encounter procedure Sylvia Canchola MD, PhD Work Phone: Gastroenterology Comment on above: Crohn's disease of s mall intestine with complication (HCC) (Primary Dx); Crohn's disease with fistula, unspecified gastrointestinal tract location (HCC); Anxiety; Depression, unspecified depression type; Crohn's disease of small and large intestines with complication (HCC) Start: 07-01-2023 End: 07-01-2023 ambulatory SHAIKH ROBERTO Not Available Start: 06-11-2023 End: 06-11-2023 ambulatory FRANCK CARROLLSHENA Facility:[facility] Start: 05-28-2023 End: 05-29-2023 ambulatory Santos BUENROSTRO Facility:[facility] Start: 05-28-2023 End: 05-28-2023 Patient encounter procedure Niko Shukla [facility] Start: 05-06-2023 End: 05-06-2023 ambulatory Alexis Mejia Work Phone: [facility] Comment on above: Dietary counseling a nd surveillance (Primary Dx); Crohn's disease with fistula, unspecified gastrointestinal tract location (HCC) Start: 05-06-2023 End: 05-06-2023 Telemedicine consultation with patient Alexis Mejia Work Phone: [facility] Start: 05-01-2023 Patient encounter status Shaik chaya Mejia MD Work Phone: [facility] Start: 05-01-2023 End: 05-01-2023 ambulatory SHAIKH ROBERTO Not Available Start: 04-30-2023 End: 04-30-2023 ambulatory ARNOLD TINSLEY Facility:[facility] Start: 04-12-2023 End: 04-13-2023 ambulatory Santos BUENROSTRO Facility:[facility] Start: 04-12-2023 End: 04-12-2023 Patient encounter procedure Santos BUENROSTRO [facility] [place] Start: 04-09-2023 ambulatory Santos BUENROSTRO Facility:[facility] Start: 04-09-2023 ambulatory Santos BUENROSTRO Facility:[facility] Start: 04-08-2023 End: 04-12-2023 ambulatory SHAIKH ROBERTO Facility::[id number] Start: 02-01-2022 End: 05-15-2022 Recurring Autumn FARIAS [facility] Start: 02-01-2022 End: 02-01-2022 Patient encounter procedure Autumn FARIAS [facility] Start: 08-29-2021 End: 08-29-[address] WEN KOCH Facility:[facility] Procedures Date Procedure Procedure Detail Performing Clinician Start: 04-06-2023 Incision and drainage of perirectal abscess Santos BUENROSTRO Start: 08-17-2019 Esophagogastroduodenoscopy Autumn FARIAS End: 08-17-2019 Colonoscopy Colonoscopy( Confirmed ) Autumn FARIAS End: 08-17-2019 Esophagogastroduodenoscopy Esophagogastroduod enoscopy( Confirmed ) Autumn FARIAS Plan of Treatment Date Care Activity Detail Author Start: 02-02-2024 Influenza vaccination [facility] Start: 01-29-2024 End: 01-29-2024 Patient encounter procedure 01/29/2024 12:15 PM EDT Appointment Procedures [address] [place] [address] Sylvia Canchola MD, PhD [address] [place], [place] [id number] Crohn's disease with fistula, unspecified gastrointestinal tract location (HCC) [K50.913] Procedures Comment on above: Crohn's disease with fistula, unspecifie d gastrointestinal tract location (HCC) [K50.913] Start: 08-21-2023 End: 08-21-2023 Patient encounter procedure 08/21/2023 9:30 AM EDT Office Visit [facility] [address] [place] [id number] Shaikh Mejia MD [address] [place] [id number] [facility] Start: 07-05-2023 End: 10-04-2023 BLOOD TB SCREEN BLOOD TB SCREEN Lab Routine Crohn's disease with fistula, unspecified gastrointestinal tract location (HCC) Expected: 07/05/2023, Expires: 10/04/[address] [facility] Work Phone: Comment on above: Expected: 07/05/2023, Expires: Start: 07-05-2023 End: 10-04-2023 Chronic hepatitis differentiation between hepatitis B and C virus panel - Serum or Plasma HEP REMOTE PANEL BL Lab Routine Crohn's disease with fistula, unspecified gastrointestinal tract location (HCC) Expected: 07/05/2023, Expires: 10/04/[address] [facility] Work Phone: Comment on above: Expected: 07/05/2023, Expires: 4 Start: 07-05-2023 End: 10-04-2023 TPMT PHENOTYPE/ENZYME ACTIVITY TPMT PHENOTYPE/ENZYME ACTIVITY Lab Routine Crohn's disease with fistula, unspecified gastrointestinal tract location (HCC) Expected: 07/05/2023, Expires: 10/04/[address] [facility] Work Phone: Comment on above: Expected: 07/05/2023, Expires: 4 Start: 06-03-2023 Behavioral Health Screening Behavioral Health Screening [facility] Start: 06-03-2023 Depression Assessment Depression Assessment [facility] Start: 02-01-2023 Covid-19 Vaccine () Covid-19 Vaccine () [facility] Start: 02-01-2023 Influenza vaccination Influenza Vaccine (#1) [facility] Start: 06-03-2022 Depression Assessment Depression Assessment [facility] Start: 10-15-2021 Urine microalbumin profile DTaP,Tdap,Td Vaccine (7 - Td or Tdap) [facility] Start: 2017 Anxiety Screening Anxiety Screening [facility] Start: 2017 Depression Screening Depression Screening [facility] Start: 2017 Hepatitis C Screening Hepatitis C Screening [facility] Start: 2017 Hepatitis C screening Hepatitis C Screening [facility] Start: 2017 HIV Screening HIV Screening [facility] Start: 2017 HIV screening HIV Screening [facility] Start: 2015 Meningococcal B Vaccine: Consider Based On Risk (1 of 2 - Patient Seeks Protection) Meningococcal B Vaccine: Consider Based On Risk (1 of 2 - Patient Seeks Protection) [facility] Start: 2013 Peds To Adult Transition Annual Assessment Peds To Adult Transition Annual Assessment [facility] Start: 2011 Peds To Adult Transition Initial Discussion Peds To Adult Transition Initial Discussion [facility] Start: 2009 Meningococcal B Vaccine: Consider Based On Risk (1 of 4 - Increased Risk) Meningococcal B Vaccine: Consider Based On Risk (1 of 4 - Increased Risk) [facility] Start: 2005 Pneumococcal vaccination Pneumococcal Vaccine (1 of 2 - PCV) [facility] Start: 01-23-2000 Covid-19 Vaccine (#1) Covid-19 Vaccine (#1) [facility] End: 06-29-2024 25-hydroxyvitamin D3 [Mass/volume] in Serum or Plasma VITAMIN D 25 HYDROXY Lab Routine Crohn's disease with fistula, unspecified gastrointestinal tract location (HCC) Crohn's disease of small intestine with complication (HCC) Anxiety Depression, unspecified depression type Crohn's disease of small and large intestines with complication (HCC) 1 Occurrences starting 07/05/2023 until 06/29/[address] [facility] Work Phone: Comment on above: 1 Occurrences starting 07/05/2023 until 06/29/2024 End: 07-03-2024 C reactive protein [Mass/volume] in Serum or Plasma C-REACTIVE PROTEIN (CRP) Lab Routine Crohn's disease with fistula, unspecified gastrointestinal tract location (HCC) Crohn's disease of small intestine with complication (HCC) Anxiety Depression, unspecified depression type Crohn's disease of small and large intestines with complication (HCC) 1 Occurrences starting 07/05/2023 until 07/03/[address] [facility] Work Phone: Comment on above: 1 Occurrences starting 07/05/2023 until 07/03/2024 End: 06-29-2024 CBC panel - Blood by Automated count CBC Lab Routine Crohn's disease with fistula, unspecified gastrointestinal tract location (HCC) Crohn's disease of small intestine with complication (HCC) Anxiety Depression, unspecified depression type Crohn's disease of small and large intestines with complication (HCC) 1 Occurrences starting 07/05/2023 until 06/29/[address] [facility] Work Phone: Comment on above: 1 Occurrences starting 07/05/2023 until 06/29/2024 End: 07-03-2024 Cobalamin (Vitamin B12) [Mass/volume] in Serum or Plasma VITAMIN B12 BLOOD Lab Routine Crohn's disease with fistula, unspecified gastrointestinal tract location (HCC) Crohn's disease of small intestine with complication (HCC) Anxiety Depression, unspecified depression type Crohn's disease of small and large intestines with complication (HCC) 1 Occurrences starting 07/05/2023 until 07/03/[address] [facility] Work Phone: Comment on above: 1 Occurrences starting 07/05/2023 until 07/03/2024 End: 07-05-2024 COLONOSCOPY DIAGNOSTIC COLONOSCOPY DIAGNOSTIC Endoscopy Routine Crohn's disease with fistula, unspecified gastrointestinal tract location (HCC) Crohn's disease of small intestine with complication (HCC) 1 Occurrences starting 07/05/2023 until 07/05/[address] [facility] Work Phone: Comment on above: 1 Occurrences starting 07/05/2023 until 07/05/2024 End: 07-03-2024 Comprehensive metabolic 2000 panel - Serum or Plasma COMP METABOLIC PANEL Lab Routine Crohn's disease with fistula, unspecified gastrointestinal tract location (HCC) Crohn's disease of small intestine with complication (HCC) Anxiety Depression, unspecified depression type Crohn's disease of small and large intestines with complication (HCC) 1 Occurrences starting 07/05/2023 until 07/03/[address] [facility] Work Phone: Comment on above: 1 Occurrences starting 07/05/2023 until 07/03/2024 End: 07-05-2024 EGD DIAGNOSTIC EGD DIAGNOSTIC Endoscopy Routine Crohn's disease with fistula, unspecified gastrointestinal tract location (HCC) 1 Occurrences starting 07/05/2023 until 07/05/[address] [facility] Work Phone: Comment on above: 1 Occurrences starting 07/05/2023 until 07/05/2024 End: 08-03-2024 MRI ABD ENTEROG WO/W IVCON MRI ABD ENTEROG WO/W IVCON Radiology Routine Crohn's disease of small intestine with complication (HCC) 1 Occurrences starting 07/05/2023 until 08/03/[address] [facility] Work Phone: Comment on above: 1 Occurrences starting 07/05/2023 until 08/03/2024 End: 08-03-2024 Mri pelvis w/o & w/contrast material MRI PEL ENTEROG WO/W IVCON Radiology Routine Crohn's disease of small and large intestines with complication (HCC) 1 Occurrences starting 07/05/2023 until 08/03/[address] [facility] Work Phone: Comment on above: 1 Occurrences starting 07/05/2023 until 08/03/2024 [facility] Immunizations Immunization Date Immunization Notes Care Provider Randy reyes 01-05-2016 meningococcal ACWY vaccine, unspecified formulation Leyva SALAM [place] 04-22-2012 hepatitis A vaccine, unspecified formulation Leyva SALAM [place] 04-22-2012 HPV, unspecified formulation Leyva SALAM [place] 04-22-2012 human papilloma viru s vaccine, quadrivalent Sylvia Canchola MD, PhD Work Phone: [facility] Work Phone: 04-22-2012 influenza virus vaccine, whole virus Sylvia Canchola MD, PhD Work Phone: [facility] Work Phone: 04-22-2012 influenza, whole Leyva SALAM [place] 04-22-2012 influenza virus vaccine, unspecified formulation Roberto Work Phone: [facility] 12-20-2011 HPV, unspecified formulation Leyva SALAM [place] 12-20-2011 human papilloma viru s vaccine, quadrivalent Sylvia Canchola MD, PhD Work Phone: [facility] Work Phone: 10-16-2011 hepatitis A vaccine, pediatric/adolescent dosage, 2 dose schedule Sylvia Canchola MD, PhD Work Phone: [facility] Work Phone: 10-16-2011 hepatitis A vaccine, unspecified formulation Leyva SALAM [place] 10-16-2011 HPV, unspecified formulation Leyva SALAM [place] 10-16-2011 human papilloma viru s vaccine, quadrivalent Sylvia Canchola MD, PhD Work Phone: [facility] Work Phone: 10-16-2011 meningococcal ACWY vaccine, unspecified formulation Leyva SALAM [place] 10-16-2011 meningococcal polysaccharide (groups A, C, Y and W-135) diphtheria toxoid conjugate vaccine (MCV4P) Sylvia Canchola MD, PhD Work Phone: [facility] Work Phone: 10-16-2011 tetanus toxoid, redu aman diphtheria toxoid, and acellular pertussis vaccine, adsorbed Leyva SALAM [place] 10-16-2011 varicella virus vaccine Antonioe audrey LEMONS [place] 08-23-2004 diphtheria, tetanus toxoids and acellular pertussis vaccine Shaikh Roberto HOLLIDAY Work Phone: [facility] 08-23-2004 diphtheria, tetanus toxoids and acellular pertussis vaccine, unspecified formulation Sylvia Canchola MD, PhD Work Phone: [facility] Work Phone: 08-23-2004 DTaP, unspecified formulation Leyva SALAM [place] 08-23-2004 measles, mumps and rubella virus vaccine Leyva SALAM [place] 08-23-2004 poliovirus vaccine, unspecified formulation Sylvia Canchola MD, PhD Work Phone: [facility] Work Phone: 11-13-2000 diphtheria, tetanus toxoids and acellular pertussis vaccine Shaikh Roberto HOLLIDAY Work Phone: [facility] 11-13-2000 diphtheria, tetanus toxoids and acellular pertussis vaccine, unspecified formulation Sylvia Canchola MD, PhD Work Phone: [facility] Work Phone: 11-13-2000 DTaP, unspecified formulation Autumn LEMONSAM [place] 11-13-2000 haemophilus influenz ae type b vaccine, HbOC conjugate Sylvia Canchola MD, PhD Work Phone: [facility] Work Phone: 11-13-2000 pneumococcal conjuga te vaccine, 7 valent Sylvia Canchola MD, PhD Work Phone: [facility] Work Phone: 07-29-2000 measles, mumps and rubella virus vaccine Levya SALAM [place] 07-29-2000 pneumococcal conjuga te vaccine, 7 valent Sylvia Canchola MD, PhD Work Phone: [facility] Work Phone: 07-29-2000 varicella virus vaccine Tiara FARIAS [place] 02-21-2000 diphtheria, tetanus toxoids and acellular pertussis vaccine Shaikh Roberto HOLLIDAY Work Phone: [facility] 02-21-2000 diphtheria, tetanus toxoids and acellular pertussis vaccine, unspecified formulation Sylvia Canchola MD, PhD Work Phone: [facility] Work Phone: 02-21-2000 DTaP, unspecified formulation Leyvashaina LEMONS [place] 02-21-2000 haemophilus influenz ae type b conjugate and Hepatitis B vaccine Sylvia Canchola MD, PhD Work Phone: [facility] Work Phone: 02-21-2000 poliovirus vaccine, inactivated Sylvia Canchola MD, PhD Work Phone: [facility] Work Phone: 02-21-2000 poliovirus vaccine, unspecified formulation Leyva SALAM [place] 01-08-2000 diphtheria, tetanus toxoids and acellular pertussis vaccine Shaikh Roberto HOLLIDAY Work Phone: [facility] 01-08-2000 diphtheria, tetanus toxoids and acellular pertussis vaccine, unspecified formulation Sylvia Canchola MD, PhD Work Phone: [facility] Work Phone: 01-08-2000 DTaP, unspecified formulation Leyva SALAM [place] 01-08-2000 haemophilus influenz ae type b vaccine, HbOC conjugate Sylvia Canchola MD, PhD Work Phone: [facility] Work Phone: 01-08-2000 poliovirus vaccine, inactivated Sylvia Canchola MD, PhD Work Phone: [facility] Work Phone: 01-08-2000 poliovirus vaccine, unspecified formulation Leyva SALAM [place] 1999 diphtheria, tetanus toxoids and acellular pertussis vaccine Shaikh Robetro HOLLIDAY Work Phone: [facility] 1999 diphtheria, tetanus toxoids and acellular pertussis vaccine, unspecified formulation Sylvia Canchola MD, PhD Work Phone: [facility] Work Phone: 1999 DTaP, unspecified formulation Leyva SALAM [place] 1999 haemophilus influenz ae type b conjugate and Hepatitis B vaccine Sylvia Canchola MD, PhD Work Phone: [facility] Work Phone: 1999 poliovirus vaccine, inactivated Sylvia Canchola MD, PhD Work Phone: [facility] Work Phone: 1999 poliovirus vaccine, unspecified formulation Autumn FARIAS [facility] 1999 hepatitis B vaccine, pediatric or pediatric/adolescent dosage Leyva SALAM [facility] NEGATED: Highlighted row has not occurred!05-23-2023 influenza virus vaccine, unspecified formulation Niko Mulleri [facility] NEGATED: Highlighted row has not occurred!02-01-2022 influenza virus vaccine, unspecified formulation Autumn FARIAS [facility] Payers Date Payer Category Payer Unknown [id number] 2023 Medicaid [employer] [place] [id number] 2023-Present [phone] [address] [place] [address] Medicaid [id number] 2023 Medicaid [id number] 2023 Unknown [id number] 1999 Unknown [id number] 1999 Unknown [id number] 1999 Unknown [id number] 1999 Unknown [id number] 1999 Unknown [id number] 1999 Unknown [id number] 1999 Unknown [id number] 1999 Unknown [id number] 1999 Unknown [id number] 1959 Unknown [id number] Self-pay Social History Date Type Detail Facility Start: 02-01-2022 End: 06-03-2020 Tobacco smoking status Smoker (finding) [facility] Comment on above: Pt vapes daily Start: 04-30-2023 End: 07-15-2023 Sex Assigned At Male [facility] Start: 04-12-2023 End: 07-15-2023 Tobacco smoking status Ex-smoker (finding) [facility] Comment on above: Pt vapes daily Tobacco smoking status Smokeless tobacco user within last 30 days [facility] Comment on above: Pt vapes daily Start: 06-11-2023 Tobacco smoking status NHIS Tobacco smoking consumption unknown [facility] Start: 04-30-2023 End: 07-15-2023 History of Social function [facility] Start: 1999 Sex Assigned At Not on file [facility] End: 06-03-2020 History of tobacco use Cigarette Smoker [facility] History of tobacco use Passive smoker [facility] Start: 05-01-2023 End: 07-15-2023 Tobacco use and exposure Smokeless tobacco non-user [facility] Start: 07-01-2023 End: 07-15-2023 Alcohol intake Lifetime non-drinker (finding) [facility] Functional Status Date Assessment Result Facility 04-12-2023 Functional Status N/A [facility] [place] 02-01-2022 Functional Status N/A [facility] Clinical Notes 01-22-2022 to 01-29-2024 Telephone Encounter - Sylvia Canchola MD, PhD - 01/29/2024 12:53 PM EDTTelephone Encounter - Sylvia Canchola MD, PhD - 01/29/2024 12:53 PM EDTFRichie early PSYD - 07/16/2023 9:56 AM EST Note Date & Type Note Facility 01-29-2024 Miscellaneous Notes Missed colon appt called lm documented in this encounter [facility] 01-29-2024 Telephone encounter Note Missed colon appt called lm [facility] 10-03-2023 Telephone encounter Note He had appt scheduled virtual He logged in and out I called left message [facility] 10-03-2023 Miscellaneous Notes He had appt scheduled virtual He logged in and out I called left message documented in this encounter [facility] 09-03-2023 Miscellaneous Notes Saturday is now filled - looking for other openings. Left message on machine to offer this Saturday Added to wait list If something opens up can we get him in sooner documented in this encounter [facility] 08-20-2023 Note HNO ID: [id number] Author: SYLVIA CANCHOLA MD, PhD Service: ? Author Type: Physician Type: Progress Notes Filed: 08/27/2023 13:06 Note Text: VIRTUAL VISIT FOLLOW UP Amandeep Martínez [id number] 2000 has requested a video telemedicine follow-up visit. Amandeep Martínez verbalized informed consent to proceed with the video telemedicine follow-up visit. Amandeep Martínez was informed that the details of this video visit would be recorded as part of their electronic medical record. I have communicated my name and active licensure. The patient's identity and physical location were verified at the time of this visit. Either the patient or their legal personal service representative has been informed of the risks and benefits of -- and alternatives to -- treatment through a remote evaluation and consents to proceed with the evaluation remotely. Patient presents with: Crohns I had a virtual visit with Mr. Martínez today for follow up of Crohn's disease. UPDATED HISTORY: He overslept and missed colonoscopy His abdominal pain is ok Not too many bm Is to have 6 -8 Does not always go just fe4els he has to go His weight was going up for a while Has not moved No blood in stool Some when he wipes The seton Off or Health maintenance: (copied with review/edit) Tetanus ? Pneumo - Hep B vax PPD Hep A vax VZV vax HPV vax Flu Pertussis Skin Bone Smoking vapes COVID Mental health depressed --he is being treated wellbutrin had si, not sure if that's helping or not rsv REVIEWED ITEMS CBC: No results found for: WBC , HCT , MCV , PLT , NEUT , LYMPHP Hepatic Function Panel: No results found for: ALB , TBILI , CBILI , ALKPHOS , AST , ALT , TPROT Assessment IMPRESSION PAST MEDICAL HISTORY Diagnosis Date ADHD (attention deficit hyperactivity disorder) Bipolar 1 disorder (HCC) Crohn's colitis, with abscess (HCC) diagnosed 2019 HTN (hypertension) PAST SURGICAL HISTORY Procedure Laterality Date COLONOSCOPY SCREENING 2019 Dr Farias EGD W/O [facility] SPEC VARICIES INJ 2019 Dr Dinora CHUN 04/07/2023 at [place] [facility] [employer] 04/10/2023 Dr Buenrostro at [place] No family history on file. Current Outpatient Medications Medication Sig Dispense Refill escitalopram oxalate (LEXAPRO) 10 mg tablet Take 10 mg by mouth. iv contrast (will be provided with radiology test) MRI Enterography Inject, intravenously, once for 1 dose. No IV access, insert saline lock prior to the beginning of sedation, infusion, injection of imaging exam. Discontinue saline lock post exam. If Pt. has a central line or IVAD, may access for administration according to line specific nursing protocol. Once exam is complete flush line and de-access according to line specific nursing protocol in the MR contrast administration guidelines link. 1 Each 0 enteric contrast (will be provided with radiology test) For MRI ENTEROGRAPHY WO/W Administer, As Directed One Time Only, via Oral, Rectal, both Oral and Rectal, Enteric Tube, Stoma or Indwelling Catheter, Enteric Contrast as designated per enteric contrast guidelines 1 Each 0 glucagon (GLUCAGEN) 1 mg/mL injection Inject 1 mg intravenously one time only for 1 dose. For MRI Enterography, Inject 1 mg intravenously, as directed. Slow push at the appropriate time during MRI Scan 1 Each 0 No current facility-administered medications for this visit. ALLERGIES Not on File ROS GENERAL: No weight loss, malaise or fevers., SEE HPI HEENT: Negative for frequent or significant headaches, CARDIOVASCULAR: Negative for chest pain, leg swelling or palpitations. GI: See HPI : No history of dysuria, frequency or incontinence CLOUD SERVICES ARCHITECT: Negative for abnormal vaginal bleeding, abnormal vaginal discharge. MUSCULOSKELETAL: Negative for joint pain or swelling, back pain or muscle pain. SKIN: Negative for lesions, rash, and itching. PSYCH: Negative for sleep disturbance, mood disorder and recent psychosocial stressors. HEMATOLOGY/LYMPHOLOGY Negative for prolonged bleeding, bruising easily or swollen nodes. ENDOCRINE: Negative for cold or heat intolerance, polyuria, polydipsia and goiter. All other reviewed and negative other than HPI. PHYSICAL FINDINGS OF NOTE: PHYSICAL EXAMINATION BY VIRTUAL IMAGE: Patient reported weight GENERAL APPEARANCE: Well developed and well nourished. SKIN: Skin color normal no abnormalities visualized on virtual image HEENT: Normal cephalic, Conjunctiva normal without icterus., LUNGS: Speaks in full sentences, no apparent dyspnea NEURO: Alert and oriented in no acute distress. PSYCH Normal affect Motor: patient sitting in no acute distress with normal posture, no limitation of movement witnessed Copy of narrative history per previous note with addendum/edit. 22 yo who has developed perianal disease, carries dx of Crohns since 2019 diagnosed due to weight loss, diarrhea, abdominal pain. I sahra (more content not included)... [facility] 08-20-2023 History of Present illness Narrative VIRTUAL VISIT FOLLOW UP Amandeep Martínez [id number] 2000 has requested a video telemedicine follow-up visit. Amandeep Martínez verbalized informed consent to proceed with the video telemedicine follow-up visit. Amandeep Martínez was informed that the details of this video visit would be recorded as part of their electronic medical record. I have communicated my name and active licensure. The patient's identity and physical location were verified at the time of this visit. Either the patient or their legal personal service representative has been informed of the risks and benefits of -- and alternatives to -- treatment through a remote evaluation and consents to proceed with the evaluation remotely. Patient presents with: Crohns I had a virtual visit with Mr. Martínez today for follow up of Crohn's disease. UPDATED HISTORY: He overslept and missed colonoscopy His abdominal pain is ok Not too many bm Is to have 6 -8 Does not always go just fe4els he has to go His weight was going up for a while Has not moved No blood in stool Some when he wipes The seton Off or Health maintenance: (copied with review/edit) Tetanus ? Pneumo - Hep B vax PPD Hep A vax VZV vax HPV vax Flu Pertussis Skin Bone Smoking vapes COVID Mental health depressed --he is being treated wellbutrin had si, not sure if that's helping or not rsv REVIEWED ITEMS CBC: No results found for: WBC , HCT , MCV , PLT , NEUT , LYMPHP Hepatic Function Panel: No results found for: ALB , TBILI , CBILI , ALKPHOS , AST , ALT , TPROT Assessment IMPRESSION PAST MEDICAL HISTORY Diagnosis Date ADHD (attention deficit hyperactivity disorder) Bipolar 1 disorder (HCC) Crohn's colitis, with abscess (HCC) diagnosed 2019 HTN (hypertension) PAST SURGICAL HISTORY Procedure Laterality Date COLONOSCOPY SCREENING 2019 Dr Farias EGD W/O [facility] SPEC VARICIES INJ 2019 Dr Dinora CHUN 04/07/2023 at [place] [facility] [employer] 04/10/2023 Dr Buenrostro at [place] No family history on file. Current Outpatient Medications Medication Sig Dispense Refill escitalopram oxalate (LEXAPRO) 10 mg tablet Take 10 mg by mouth. iv contrast (will be provided with radiology test) MRI Enterography Inject, intravenously, once for 1 dose. No IV access, insert saline lock prior to the beginning of sedation, infusion, injection of imaging exam. Discontinue saline lock post exam. If Pt. has a central line or IVAD, may access for administration according to line specific nursing protocol. Once exam is complete flush line and de-access according to line specific nursing protocol in the MR contrast administration guidelines link. 1 Each 0 enteric contrast (will be provided with radiology test) For MRI ENTEROGRAPHY WO/W Administer, As Directed One Time Only, via Oral, Rectal, both Oral and Rectal, Enteric Tube, Stoma or Indwelling Catheter, Enteric Contrast as designated per enteric contrast guidelines 1 Each 0 glucagon (GLUCAGEN) 1 mg/mL injection Inject 1 mg intravenously one time only for 1 dose. For MRI Enterography, Inject 1 mg intravenously, as directed. Slow push at the appropriate time during MRI Scan 1 Each 0 No current facility-administered medications for this visit. ALLERGIES Not on File ROS GENERAL: No weight loss, malaise or fevers., SEE HPI HEENT: Negative for frequent or significant headaches, CARDIOVASCULAR: Negative for chest pain, leg swelling or palpitations. GI: See HPI : No history of dysuria, frequency or incontinence CLOUD SERVICES ARCHITECT: Negative for abnormal vaginal bleeding, abnormal vaginal discharge. MUSCULOSKELETAL: Negative for joint pain or swelling, back pain or muscle pain. SKIN: Negative for lesions, rash, and itching. PSYCH: Negative for sleep disturbance, mood disorder and recent psychosocial stressors. HEMATOLOGY/LYMPHOLOGY Negative for prolonged bleeding, bruising easily or swollen nodes. ENDOCRINE: Negative for cold or heat intolerance, polyuria, polydipsia and goiter. All other reviewed and negative other than HPI. PHYSICAL FINDINGS OF NOTE: PHYSICAL EXAMINATION BY VIRTUAL IMAGE: Patient reported weight GENERAL APPEARANCE: Well developed and well nourished. SKIN: Skin color normal no abnormalities visualized on virtual image HEENT: Normal cephalic, Conjunctiva normal without icterus., LUNGS: Speaks in full sentences, no apparent dyspnea NEURO: Alert and oriented in no acute distress. PSYCH Normal affect Motor: patient sitting in no acute distress with normal posture, no limitation of movement witnessed Copy of narrative history per previous note with addendum/edit. 22 yo who has developed perianal disease, carries dx of Crohns since 2019 diagnosed due to weight loss, diarrhea, abdominal pain. I believe he had ileal Crohns at diagnosis (report of ileitis, bx report colitis with granuloma). He has not yet been on advanced therapy He has now developed perianal disease requiring seton We need to stage his disease then start therapy. Started to review therapies Infliximab vs risankizumab likely choices ASSESSMENT AND PLAN Crohn's disease with fistula, unspecified gastrointestinal tract location (hcc) (primary encounter diagnosis) Depression, unspecified depression type Crohns disease likely ileal with perianal disease He is stable He still needs to get labs for me. We are in the process of working up his Crohns so we can accurately assess his response to therapy Thoughts to risankizumab vs ifx Asked him to get labs He is getting MRI in a few weeks and he unfortunately overslept for his endoscopic procedures so we are trying to rescheduled If he gets lab and MRI may have to proceed with therapy and use procedures to assess response Biologic statement of necessity: Requires biologic therapy to induce remission. No active infection. It is medically necessary to start this medication otherwise at risk of flares, steroids, hospitalization and potentially surgery and very importantly permanent disability. Biologics are not interchangeable. I have chosen this medication based on the currently available data and the patient particular characteristics of disease, history and previous therapy. This patient is high risk of complictations if their IBD is not appropriately treated because he has severe Crohns with perianal disease I spent 20 minutes in the virtual visit, with more than 50% of the total [id number] time of the visit in counseling / coordination of care. I have confirmed and edited as necessary, the PFSH and ROS obtained by others. I will communicate my recommendations and prescriptions to the patient's primary care provider. Unrelated to E/M, telemedicine, or virtual visit service provided within previous 7 days. No E/M service or procedure anticipated within next 24 hours. Sylvia Canchola MD, PhD August 20, 2023 9:04 AM documented in this encounter [facility] 07-16-2023 Note HNO ID: [id number] Author: NINO RUIZ PSYD Service: ? Author Type: Resident Type: Progress Notes Filed: 07/16/2023 17:42 Note Text: Attestation signed by Nino Ruiz PSYD at 07/16/2023 5:42 PM I was available to trainee in person, reviewed care, and provided supervision for the above note. The note was written by a supervisee under my direct supervision and all care discussed. Nino Ruiz Psy.D. [place] Licensed Psychologist ([id number]) [place] Licensed Psychologist ([id number]) Director of Behavioral Medicine and Staff, Department of Gastroenterology, Hepatology AND Junior Technical Writer graphic user interface designer, [facility] Progress Note 07/16/2023 Billing code: Sara Patient did not attend, cancel, or reschedule this appointment. Richie Castelan Psy.D. Postdoctoral Fellow Nino Ruiz Psy.D. Clinical Health Psychologist [facility] 07-16-2023 History of Present illness Narrative Progress Note 07/16/2023 Billing code: Sara Patient did not attend, cancel, or reschedule this appointment. Richie Castelan Psy.D. Postdoctoral Fellow Nino Ruiz Psy.D. Clinical Health Psychologist Associated attestation - Nino Ruiz PSYD - 07/16/2023 5:42 PM EST I was available to trainee in person, reviewed care, and provided supervision for the above note. The note was written by a supervisee under my direct supervision and all care discussed. Nino Ruiz Psy.D. [place] Licensed Psychologist ([id number]) [place] Licensed Psychologist ([id number]) Director of Behavioral Medicine and Staff, Department of Gastroenterology, Hepatology & Junior Technical Writer graphic user interface designer, [facility] documented in this encounter [facility] 07-15-2023 History of Present illness Narrative Associated Problem(s): URTI (acute upper respiratory infection) Symptoms present x 2 weeks. Reports sore throat, cough, nose and chest congestion. Cough is worse is night. No fever or SOB. Also reports left ear pain. Exam c/w pharnyngitis and b/l otitis media. Will treat with Aumgentin. Called in benzonatate and prednisone for symptomatic relief. Associated Problem(s): MEGAN (generalized anxiety disorder) ([facility]) Was seen last appointment for feeling anxious that constantly worry about everything. He also reports difficulty going to sleep. He denies panic attacks. No depressive symptoms. Was started on Lexapro - 10 mg last appointment. He reports improvement in his symptoms, overall anxiety. However, he still feels anxious and that there is room for improvement. Increase Lexapro to 20 mg. RTC in 4-6 weeks. Subjective Patient ID: Amandeep Martínez is a 22 y.o. male who presents for URI and Anxiety. Reports improvement in his anxiety symptoms ever since he was started on Lexapro. Tolerating it well. Denies adverse effects Also here for URTI - cough, nasal, chest congestion x 2 weeks. Also reports left ear pain. Current Outpatient Medications on File Prior to Visit Medication Sig Dispense Refill escitalopram (Lexapro) 10 MG tablet Take 1 tablet (10 mg) by mouth in the morning. 30 tablet 1 No current facility-administered medications on file prior to visit. No Known Allergies Review of System All systems negative except as mentioned in HPI. Visit Vitals BP 110/70 (BP Location: Left arm, Patient Position: Sitting, BP Cuff Size: Adult) Temp 97.9 F (Tympanic) Ht 5' 10 Wt 160 lb BMI 22.96 kg/m Smoking Status Former BSA 1.89 m Patient Health Questionnaire-2 Score: 0 @LABRESULTS@ No images are attached to the encounter. Objective Reports cough, congestion. Anxiety improved since he started using Lexapro Physical Exam General: Comfortable, NAD HEENT: AT/NC. Hyperemic oropharyngeal mucosal. Purulent fluid behind TM b/l Resp: Normal RR, CTA b/l CVS: Normal HR, No mumur noted. Neuro: AAOX 3, moving all extremities. Psych: Calm, co operative, no HI/SI. Assessment/Plan Problem List Items Addressed This Visit MEGAN (generalized anxiety disorder) ([facility]) - Primary Was seen last appointment for feeling anxious that constantly worry about everything. He also reports difficulty going to sleep. He denies panic attacks. No depressive symptoms. Was started on Lexapro - 10 mg last appointment. He reports improvement in his symptoms, overall anxiety. However, he still feels anxious and that there is room for improvement. Increase Lexapro to 20 mg. RTC in 4-6 weeks. URTI (acute upper respiratory infection) Symptoms present x 2 weeks. Reports sore throat, cough, nose and chest congestion. Cough is worse is night. No fever or SOB. Also reports left ear pain. Exam c/w pharnyngitis and b/l otitis media. Will treat with Aumgentin. Called in benzonatate and prednisone for symptomatic relief. Follow up in about 6 weeks (around 08/26/2023) for Recheck. documented in this encounter [facility] 07-05-2023 History of Present illness Narrative Images from the original note were not included. CLINICAL HISTORY: This is a 22 year old male who presents today in consultation for an evaluation of Crohns Pt states 2-3 BM's daily, regular to soft stools with occasional bleeding. Here with grandmother who helps with history a little Was dx in 2019 He was taking 3 bites and got sick, no appetite, would disappear Sitting on toilet 15x a day Bad abdominal pain, cramping Diarrhea, etc For some months a whole school year Then was waking up and vomiting for 1 months Lost 70# in 06/04 As on budesonide and pentasa He stopped all this Was ok off and on, had issues digesting food, stomach problems Off and on with pain diarrhea Now with the seton has pain Before was having blood He was down to 140 Now he is gaining weight and feels very hungry Stomach upset Has missed work Was there for 5 days The abx damaged his kidneys extraintestinal manifestations of IBD Joints crack Skin on the back of his head on his scalp has patch of ? 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 Pneumo - Hep B vax PPD Hep A vax VZV vax HPV vax Flu Pertussis Skin Bone Smoking vapes COVID Mental health depressed --he is being treated wellbutrin had si, not sure if that's helping or not rsv VITALS: Blood pressure 142/96, pulse 76, height 177.8 cm (5' 10 ), weight 72.3 kg (159 lb 6.3 oz), SpO2 97%. ALLERGIES: Patient has no allergy information on record. MEDICATIONS: Current Outpatient Medications Medication Sig Dispense Refill escitalopram oxalate (LEXAPRO) 10 mg tablet Take 10 mg by mouth. No current facility-administered medications for this visit. PAST MEDICAL HISTORY: PAST MEDICAL HISTORY Diagnosis Date ADHD (attention deficit hyperactivity disorder) Bipolar 1 disorder (HCC) Crohn's colitis, with abscess (HCC) diagnosed 2019 HTN (hypertension) PAST SURGICAL HISTORY: PAST SURGICAL HISTORY Procedure Laterality Date COLONOSCOPY SCREENING 2019 Dr Farias EGD W/O [facility] SPEC VARICIES INJ 2019 Dr Farias EUA 04/07/2023 at [place] [facility] SETON PLACEMENT 04/10/2023 Dr Buenrostro at [place] FAMILY HISTORY: No family GI history SOCIAL HISTORY: Work up to date: Colonoscopy Reviewed with patient during visit today. REVIEW OF SYSTEMS: GENERAL: No weight loss, malaise or fevers., SEE HPI HEENT: Negative for frequent or significant headaches, NECK: Negative for lumps, goiter, pain and significant neck swelling RESPIRATORY: Negative for cough, wheezing or shortness of breath. CARDIOVASCULAR: Negative for chest pain, leg swelling or palpitations. GI: See HPI MUSCULOSKELETAL: Negative for joint pain or swelling, back pain or muscle pain. SKIN: plaque on scalp PSYCH: Negative for sleep disturbance, mood disorder a+++ recent psychosocial stressors. HEMATOLOGY/LYMPHOLOGY Negative for prolonged bleeding, bruising easily or swollen nodes. ENDOCRINE: Negative for cold or heat intolerance, polyuria, polydipsia and goiter. All other reviewed and negative other than HPI. PHYSICAL EXAMINATION: GENERAL APPEARANCE: Well developed and well nourished. SKIN: Skin color, texture, turgor normal. No rashes or lesions. Plaque on scalp EYES: Conjunctiva normal without icterus. OROPHARYNX: lips, mucosa, and tongue normal, teeth and gums normal NECK: Supple, full range of motion, no lymphadenopathy, normal thyroid, LUNGS: Normal breath sounds, Clear to auscultation, No wheezes, No crackles. HEART:Normal PMI, Regular rate and rhythm, Normal heart sounds, S1 and S2 and No murmurs. NEURO: Alert and oriented in no acute distress. ABDOMEN: Normal bowel sounds, abdomen flat with no distention, Soft, non-tender, no hepatomegaly. no palpable masses, no abdominal bruits, no rebound and no rigidity. EXTREMITIES:Extremities normal, No deformities, No skin discoloration, No edema . RECENT LABS: CBC: No results found for: WBC , HB , MCV , PLT , NEUT , LYMPHP Hepatic Function Panel: No results found for: ALB , TBILI , CBILI , ALKPHOS , AST , ALT , TPROT No results found for: WBC , RBC , HB , HCT , MCV , MCH , MCHC , RDWCV , PLT , MPV , GLUC , BUN , CREAT , NA , K , CHLOR , CO2 , TPROT , ALB , CA , ALKPHOS , TBILI , AST , ALT , CHOL , TG , BETAMM Assessment/Plan: (K50.913) Crohn's disease with fistula, unspecified gastrointestinal tract location (HCC) 22 yo who has developed perianal disease, carries dx of Crohns since 2019 diagnosed due to weight loss, diarrhea, abdominal pain. I believe he had ileal Crohns at diagnosis (report of ileitis, bx report colitis with granuloma). He has not yet been on advanced therapy He has now developed perianal disease requiring seton We need to stage his disease then start therapy. Started to review therapies Infliximab vs risankizumab likely choices He is having anxiety depression : refer to Dr Ruiz How this clinic works, how and when to get in touch with me, signs and causes of flare discussed. No overt extraintestinal manifestations of IBD except possible psoriasis of scalp Did not have time during this visit to review health maintenance Consultation requested by Arnold Tinsley MD for an opinion regarding Crohns . My final recommendations will be communicated back to the requesting physician by way of shared medical record or letter via [place] mail. Sylvia Canchola MD, PhD documented in this encounter [facility] 07-05-2023 Note HNO ID: [id number] Author: SYLVIA CANCHOLA MD, PhD Service: ? Author Type: Physician Type: Progress Notes Filed: 07/06/2023 21:03 Note Text: CLINICAL HISTORY: This is a 22 year old male who presents today in consultation for an evaluation of Crohns Pt states 2-3 BM's daily, regular to soft stools with occasional bleeding. Here with grandmother who helps with history a little Was dx in 2019 He was taking 3 bites and got sick, no appetite, would disappear Sitting on toilet 15x a day Bad abdominal pain, cramping Diarrhea, etc For some months a whole school year Then was waking up and vomiting for 1 months Lost 70# in 06/04 As on budesonide and pentasa He stopped all this Was ok off and on, had issues digesting food, stomach problems Off and on with pain diarrhea Now with the seton has pain Before was having blood He was down to 140 Now he is gaining weight and feels very hungry Stomach upset Has missed work Was there for 5 days The abx damaged his kidneys extraintestinal manifestations of IBD Joints crack Skin on the back of his head on his scalp has patch of ? 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 Pneumo - Hep B vax PPD Hep A vax VZV vax HPV vax Flu Pertussis Skin Bone Smoking vapes COVID Mental health depressed --he is being treated wellbutrin had si, not sure if that's helping or not rsv VITALS: Blood pressure 142/96, pulse 76, height 177.8 cm (5' 10 ), weight 72.3 kg (159 lb 6.3 oz), SpO2 97%. ALLERGIES: Patient has no allergy information on record. MEDICATIONS: Current Outpatient Medications Medication Sig Dispense Refill escitalopram oxalate (LEXAPRO) 10 mg tablet Take 10 mg by mouth. No current facility-administered medications for this visit. PAST MEDICAL HISTORY: PAST MEDICAL HISTORY Diagnosis Date ADHD (attention deficit hyperactivity disorder) Bipolar 1 disorder (HCC) Crohn's colitis, with abscess (HCC) diagnosed 2019 HTN (hypertension) PAST SURGICAL HISTORY: PAST SURGICAL HISTORY Procedure Laterality Date COLONOSCOPY SCREENING 2019 Dr Farias EGD W/O [facility] SPEC VARICIES INJ 2019 Dr Dinora CHUN 04/07/2023 at [facility] SETON PLACEMENT 04/10/2023 Dr Buenrostro at [place] FAMILY HISTORY: No family GI history SOCIAL HISTORY: Work up to date: Colonoscopy Reviewed with patient during visit today. REVIEW OF SYSTEMS: GENERAL: No weight loss, malaise or fevers., SEE HPI HEENT: Negative for frequent or significant headaches, NECK: Negative for lumps, goiter, pain and significant neck swelling RESPIRATORY: Negative for cough, wheezing or shortness of breath. CARDIOVASCULAR: Negative for chest pain, leg swelling or palpitations. GI: See HPI MUSCULOSKELETAL: Negative for joint pain or swelling, back pain or muscle pain. SKIN: plaque on scalp PSYCH: Negative for sleep disturbance, mood disorder a+++ recent psychosocial stressors. HEMATOLOGY/LYMPHOLOGY Negative for prolonged bleeding, bruising easily or swollen nodes. ENDOCRINE: Negative for cold or heat intolerance, polyuria, polydipsia and goiter. All other reviewed and negative other than HPI. PHYSICAL EXAMINATION: GENERAL APPEARANCE: Well developed and well nourished. SKIN: Skin color, texture, turgor normal. No rashes or lesions. Plaque on scalp EYES: Conjunctiva normal without icterus. OROPHARYNX: lips, mucosa, and tongue normal, teeth and gums normal NECK: Supple, full range of motion, no lymphadenopathy, normal thyroid, LUNGS: Normal breath sounds, Clear to auscultation, No wheezes, No crackles. HEART:Normal PMI, Regular rate and rhythm, Normal heart sounds, S1 and S2 and No murmurs. NEURO: Alert and oriented in no acute distress. ABDOMEN: Normal bowel sounds, abdomen flat with no distention, Soft, non-tender, no hepatomegaly. no palpable masses, no abdominal bruits, no rebound and no rigidity. EXTREMITIES:Extremities normal, No deformities, No skin discoloration, No edema . RECENT LABS: CBC: No results found for: WBC , HB , MCV , PLT , NEUT , LYMPHP Hepatic Function Panel: No results found for: ALB , TBILI , CBILI , ALKPHOS , AST , ALT , TPROT No results found for: WBC , RBC , HB , HCT , MCV , MCH , MCHC , RDWCV , PLT , MPV , GLUC , BUN , CREAT , NA , K , CHLOR , CO2 , TPROT , ALB , CA , ALKPHOS , TBILI , AST , ALT , CHOL , TG , BETAMM Assessment/Plan: (K50.913) Crohn's disease with fistula, unspecified gastrointestinal tract location (HCC) 22 yo who has developed perianal disease, carries dx of Crohns since 2020 diagnosed due to weight loss, diarrhea, abdominal pain. I believe he had ileal Crohns at diagnosis (report of ileitis, bx report colitis with gran (more content not included)... [facility] 06-11-2023 Note HNO ID: [id number] Author: ARNOLD TINSLEY MD Service: ? Author Type: Physician Type: Progress Notes Filed: 06/11/2023 14:20 Note Text: COLORECTAL SURGERY CLINIC NOTE June 11, 2023 Amandeep Martínez 22 year old Chief Complaint: perianal Crohn's disease Brief History: 22 year old man with crohn's disease with perianal disease with hospitalization in Mar 2023 for perianal abscess, s/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 He is not any medications for his crohns and awaiting re-establishment of care with GI. He presents today for follow up Interval events: Wound is healing and drainage is improving. Denies perianal pain, swelling or fevers. His weight up one lbs. Still pending evaluation with GI. Anorectal Surgeries: -04/07/2023- EUA, IANDD of abscess, lanette drain placement -Dr Lauren at [facility] -04/10/2023- EUA, lanette removal,seton placement - Dr Buenrostro at [facility] Scan on 04/23/2023 10:19 AM by Kera Lawson: OPERATIVE NOTE 04/07/2023 Office notes follow up: Scan on 04/23/2023 10:16 AM by Kera Lawson: [facility] DOCUMENTS 04/12/23 PAST MEDICAL HISTORY Diagnosis Date ADHD (attention deficit hyperactivity disorder) Bipolar 1 disorder (HCC) Crohn's colitis, with abscess (HCC) diagnosed 2019 HTN (hypertension) PAST SURGICAL HISTORY Procedure Laterality Date COLONOSCOPY SCREENING 2019 Dr Farias EGD W/O [facility] SPEC VARICIES INJ 2019 Dr Dinora CHUN 04/07/2023 at [facility] SETON PLACEMENT 04/10/2023 Dr Buenrostro at [place] No current outpatient medications on file. No current facility-administered medications for this visit. ALLERGIES Not on File No family history on file. Physical Exam: BP 140/74 Pulse 66 Ht 177.8 cm (5' 10 ) Wt 72.8 kg (160 lb 7.9 oz) BMI 23.03 kg/m? General Appearance: Well appearing, alert, in no acute distress, well-hydrated, well nourished. Anorectal: External exam reveals right anterolateral transsphincteric fistula with seton in place with small external opening. Prior large external wound mostly healed. No associated redness or swelling. Mild purulent drainage. Digital rectal exam and anoscopy deferred Computerized [employer] Recorder present: Yes Colonoscopy (pg 9): 08/2019- Dr Farias- Scan on 04/23/2023 10:21 AM by Kera Lawson: [facility] RECORDS Assessment Assessment and Plan: Amandeep Martínez is a 22 year old man with crohn's disease with perianal disease with hospitalization in Mar 2023 for perianal abscess, s/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 Perianal infection nearly resolved. Advised patient to rotate the seton daily to keep tract patent and prevent re-accumulation of fluid leading to abscess. Warning signs discussed Needs to establish care with GI to decide on medical management of crohn's prior to definitive treatment of fistula. Patient is scheduled to see Dr. Sharma next sat but would prefer to see GI at [place] as it is closer to his home. Will try to facilitate. RTC 3months Medical Decision Making: Data Reviewed: Tests AND Documents Reviewed/ordered: Review of prior notes from last clinic note I have independently interpreted: n/a I have discussed Amandeep Martínez's treatment plan and/or results with Patient and grandmother, Elizabeth. Risk of morbidity, mortality and/or complications of treatment plan: bessy Tinsley MD Colorectal Surgery [facility] 05-06-2023 History of Present illness Narrative [facility] Integrative and Lifestyle Medicine - Wellness Nutrition Counseling Nutrition Therapy: Initial Assessment (Individual) VIRTUALVISITPN I have communicated my name and active licensure. The patient's identity and physical location were verified at the time of this visit. Either the patient or their legal personal service representative has been informed of the risks and benefits of -- and alternatives to -- treatment through a remote evaluation and consents to proceed with the evaluation remotely. Patient is located in the [facility] at the time of the virtual visit. Patient Name: Amandeep Martínez Patient referred by Arnold Tinsley MD for Nutrition Counseling. Reason for visit: crohns Malnutrition Screening: Significant unintentional weight loss: No Eating less than 75% of usual intake for more than 2 weeks: No READINESS TO LEARN Cognitive ability: Alert and oriented Motivation to learn: Interested Family support: Unable to assess - Family not present Instruction provided to: Patient Physical limitations affecting ability to make changes: None Factors affecting ability to make changes: None Allergies: Patient has no allergy information on record. There were no vitals taken for this visit. PMH: PAST MEDICAL HISTORY Diagnosis Date ADHD (attention deficit hyperactivity disorder) Bipolar 1 disorder (HCC) Crohn's colitis, with abscess (HCC) diagnosed 2019 HTN (hypertension) No current outpatient medications on file. No current facility-administered medications for this visit. Nutrition Assessment (05/06/23) Your lipid panel : No results found for: CHOL No results found for: HDL No results found for: LDL No results found for: TG HgbA1C:No results found for: HBA1C Weight: Last 5 Encounter Wt Readings: Date: Wt: 04/30/2023 72.2 kg (159 lb 1.6 oz) Height: Last 1 Encounter Ht Readings: Date: Ht: 04/30/2023 177.8 cm (5' 10 ) BMI: BMI Readings from Last 1 Encounters: 04/30/23 : 22.83 kg/m BMI Status: normal Estimated Nutrition Needs: Energy: Resting Metabolic Rate: 1724 Protein: 0.8g/kg History of current concerns: Amandeep sees me today to discuss how to eat to best manage his crohns. In August 2019 he was diagnosed with Crohns. Recently things got worse. Had 2 surgeries and a 5 day hospitalization this April. Apr 09 was his last surgery Weight cooper is okay where he is, though would like to improve body composition. Weight recently is stable. During HS almost 220. Graduated under 200. Feels okay where he's at now. Amandeep has already started to notice which foods he does not tolerate. High lactose foods, high fat foods, and certain high sugar foods are triggers. Food and Nutrition History (special diet(s) or nutritional program): No Digestive symptoms: Yes Crohn's Adverse Reactions to Foods: Yes, No milk or cheese and crackers. Pizza ok. Eggs are a problem Diet Recall: Yes 24 Hour Recall Lunch: mac and cheese, hot dogs, chicken, velvetta skillets, hamburger helper. When he eats something he knows is going Chicken, rice and broccoli. Green beans and carrots Snacks: Beverages: Has tried almond and oat milk. Oat milk didn't go well. Energy drinks occ, no coffee or tea Nutrition Diagnosis: Food and Nutrition Related Knowledge Deficit related to Diet and Crohns as evidenced by patient reports interest Intervention 05/06/2023: Education Provided: crohns and diet Nutrition Plan: Crohns Low fiber diet during flares Keep a food diary to help identify food triggers Monitoring and Evaluation Likelihood to adhere to plan: Good Follow Up: 1 month Consult Billing Type: Initial Assessment/15 minutes, 3 increment(s), 45 [address] Alexis Mejia RD, LD MPH [facility] Fiber should be limited to lessen GI discomfort and diarrhea. Avoid seeds, fruit and vegetable skins, and whole grains. Fat should also be limited so do your best to avoid fried foods, nuts, ice cream, beef, cheese, and mayonnaise. Instead of: Whole Wheat, Mobile, or Barley Try: Rice, Skinless Potatoes, Oatmeal, Polenta Instead of: Raw vegetables, apples with skins, broccoli, cabbage, cauliflower, artichokes, cherries, peaches, plums, dark green vegetables Try: Applesauce, well-cooked vegetables, especially peeled squash, mushrooms, bananas, peeled cucumbers, pumpkin Instead of: Beef, Sausage, Processed meats (hot dogs, salami, bologna), Dark meat poultry Try: Eggs, Seafood, Pork tenderloin, Chicken and turkey breast, Tofu Instead of: Butter, Cream, Full Fat Dairy Try: Low-Fat Dairy, Dairy Substitutes, Kefir Instead of: Coffee, Black Tea, Soda, Alcohol Try: Plain water, sparkling water, non-caffeinated herbal tea. Drink at least 64 oz a day Instead of: Pepper, Cayenne, Printer, Garlic, Anything too spicy Try: Turmeric, Angelica, Mustard, Fresh Herbs LOW FIBER RECIPES: https://www.cookforyourlife.org/r ipe-collections/vi-d-vrp-fiber- xusy-evgqgx-fugwn-op-hegq-go-easi er/ https://www.[facility].org/experience/ patient-support/nutrition-cancer/ recipes/diet/mot-mswvf-ucwi Take a daily multivitamin with iron. Folate, vitamin B-12, vitamin D, and fat-soluble vitamins (vitamins A, D, E and K) are the most common nutrient deficiencies. Have these checked and supplement as necessary Keep a food diary to note flare ups and the foods you consumed before having any problems. Use the diary to help identify problematic foods. Following a Gluten-Free diet, a low fodmap diet, or adding probiotics may be beneficial for some. documented in this encounter [facility] 05-06-2023 Note HNO ID: [id number] Author: Alexis Mejia Service: ? Author Type: Registered Dietitian Type: Progress Notes Filed: 05/06/2023 12:00 PM Note Text: [facility] - [facility]ness Nutrition Counseling Nutrition Therapy: Initial Assessment (Individual) VIRTUALVISITPN I have communicated my name and active licensure. The patient's identity and physical location were verified at the time of this visit. Either the patient or their legal personal service representative has been informed of the risks and benefits of -- and alternatives to -- treatment through a remote evaluation and consents to proceed with the evaluation remotely. Patient is located in the [facility] at the time of the virtual visit. Patient Name: Amandeep Martínez Patient referred by Arnold Tinsley MD for Nutrition Counseling. Reason for visit: crohns Malnutrition Screening: Significant unintentional weight loss: No Eating less than 75% of usual intake for more than 2 weeks: No READINESS TO LEARN Cognitive ability: Alert and oriented Motivation to learn: Interested Family support: Unable to assess - Family not present Instruction provided to: Patient Physical limitations affecting ability to make changes: None Factors affecting ability to make changes: None Allergies: Patient has no allergy information on record. There were no vitals taken for this visit. PMH: PAST MEDICAL HISTORY Diagnosis Date ADHD (attention deficit hyperactivity disorder) Bipolar 1 disorder (HCC) Crohn's colitis, with abscess (HCC) diagnosed 2020 HTN (hypertension) No current outpatient medications on file. No current facility-administered medications for this visit. Nutrition Assessment (05/06/23) Your lipid panel : No results found for: CHOL No results found for: HDL No results found for: LDL No results found for: TG HgbA1C:No results found for: HBA1C Weight: Last 5 Encounter Wt Readings: Date: Wt: 04/30/2023 72.2 kg (159 lb 1.6 oz) Height: Last 1 Encounter Ht Readings: Date: Ht: 04/30/2023 177.8 cm (5' 10 ) BMI: BMI Readings from Last 1 Encounters: 04/30/23 : 22.83 kg/m? BMI Status: normal Estimated Nutrition Needs: Energy: Resting Metabolic Rate: 1724 Protein: 0.8g/kg History of current concerns: Amandeep sees me today to discuss how to eat to best manage his crohns. In August 2019 he was diagnosed with Crohns. Recently things got worse. Had 2 surgeries and a 5 day hospitalization this April. Apr 09 was his last surgery Weight cooper is okay where he is, though would like to improve body composition. Weight recently is stable. During HS almost 220. Graduated under 200. Feels okay where he's at now. Amandeep has already started to notice which foods he does not tolerate. High lactose foods, high fat foods, and certain high sugar foods are triggers. Food and Nutrition History (special diet(s) or nutritional program): No Digestive symptoms: Yes Crohn's Adverse Reactions to Foods: Yes, No milk or cheese and crackers. Pizza ok. Eggs are a problem Diet Recall: Yes 24 Hour Recall Lunch: mac and cheese, hot dogs, chicken, velvetta skillets, hamburger helper. When he eats something he knows is going Chicken, rice and broccoli. Green beans and carrots Snacks: Beverages: Has tried almond and oat milk. Oat milk didn't go well. Energy drinks occ, no coffee or tea Nutrition Diagnosis: Food and Nutrition Related Knowledge Deficit related to Diet and Crohns as evidenced by patient reports interest Intervention 05/06/2023: Education Provided: crohns and diet Nutrition Plan: Crohns Low fiber diet during flares Keep a food diary to help identify food triggers Monitoring and Evaluation Likelihood to adhere to plan: Good Follow Up: 1 month Consult Billing Type: Initial Assessment/15 minutes, 3 increment(s), [address] Mejia RD, LD MPH [place] Fiber should be limited to lessen GI discomfort and diarrhea. Avoid seeds, fruit and vegetable skins, and whole grains. Fat should also be limited so do your best to avoid fried foods, nuts, ice cream, beef, cheese, and mayonnaise. Instead of: Whole Wheat, Mobile, or Barley Try: Rice, Skinless Potatoes, Oatmeal, Polenta Instead of: Raw vegetables, apples with skins, broccoli, cabbage, cauliflower, artichokes, cherries, peaches, plums, dark green vegetables Try: Applesauce, well-cooked vegetables, especially peeled squash, mushrooms, bananas, peeled cucumbers, pumpkin Instead of: Beef, Sausage, Processed meats (hot dogs, salami, bologna), Dark meat poultry Try: Eggs, Seafood, Pork tenderloin, Chicken and turkey breast, Tofu Instead of: Butter, Cream, Full Fat Dairy Try: Low-Fat Dairy, Dairy Substitutes, Kefir Instead of: Coffee, Black Tea, Soda, Alcohol Try: Plain water, sparkling water, non-caffeinated herbal tea. Drink at least 64 oz a day Instead of: Pepper, Cayenne, Chil (more content not included)... [facility] 04-30-2023 Note HNO ID: [id number] Author: Arnold Tinsley MD Service: ? Author Type: Physician Type: Progress Notes Filed: 04/30/2023 9:00 PM Note Text: COLORECTAL SURGERY Amandeep Martínez 22 year old This consult was requested by Dr. Buenrostro / general surgery- [facility] and my final recommendations will be communicated to the requesting health care provider by way of the shared medical record for internal providers or letter via the [employer] for external providers. Chief Complaint: perianal Crohn's History of Present Illness: Amandeep Martínez is a 22 year old man who presents with perianal Crohn's disease. Patient was first diagnosed with Crohn's disease back in 2019 after undergoing a colonoscopy with Dr. Farias. He was initially managed with pentasa and budesonide back in early 2020 but reports that he has not been on it for a while. He developed a large perianal abscess at the end of March 2023 resulting in sepsis and admission to the hospital. He underwent a EUA, IANDD of abscess with lanette placement on 04/07/2023 and taken back to the OR 3 days later for EUA, Lanette removal and seton placement with Dr. Ruth. He was discharged and reports that he has been slowly improving. He is still having mild drainage but no pain or bleeding. He has been going to the hospital to undergo packing of his wound on a daily basis. He denies any abdominal pain, nausea, vomiting, any hematochezia, weight loss, fevers or chills. He has a 1-2 soft bowel movements every day without straining. He has never had any anal disease prior to this. Of note, his initial work up for crohns was in setting of perianal discomfort presumed to be from hemorrhoids, which ultimately self resolved. His last colonoscopy was in 2019 at the time of his diagnosis. He denies any cigarette smoking but he does vape. Anorectal Surgeries: -04/07/2023- EUA, IANDD of abscess, lanette drain placement -Dr Lauren at [facility] -04/10/2023- EUA, lanette removal,seton placement - Dr Buenrostro at [facility] Scan on 04/23/2023 10:19 AM by Kera Lawson: OPERATIVE NOTE 04/07/2023 Office notes follow up: Scan on 04/23/2023 10:16 AM by Kera Lawson: [facility] DOCUMENTS 04/12/23 PAST MEDICAL HISTORY Diagnosis Date ADHD (attention deficit hyperactivity disorder) Bipolar 1 disorder (HCC) Crohn's colitis, with abscess (HCC) diagnosed 2019 HTN (hypertension) PAST SURGICAL HISTORY Procedure Laterality Date COLONOSCOPY SCREENING 2019 Dr Farias EGD W/O BRSH SPEC VARICIES INJ 2019 Dr Dinora CHUN 04/07/2023 at [facility] SETON PLACEMENT 04/10/2023 Dr Buenrostro at [place] No current outpatient medications on file. No current facility-administered medications for this visit. ALLERGIES Not on File No family history on file. Physical Exam: BP 131/71 Pulse 95 Ht 177.8 cm (5' 10 ) Wt 72.2 kg (159 lb 1.6 oz) SpO2 100% BMI 22.83 kg/m? General Appearance: Well appearing, alert, in no acute distress, well-hydrated, well nourished. 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 No abscess or erythema noted. Digital rectal exam and anoscopy deferred. 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 He is not any medications for his crohns and awaiting re-establishment of care with GI. I outlined the pathophysiology of perianal fistula in setting of crohns to the patient and his grandmother. I explained to them that the most important treatment strategy is to get him started on Crohn's medication to help control his perianal inflammation. I also explained the importance of giving adequate time for the infection and drainage to improve and allow the tract to scar. I explained that once his Crohn's is medically optimized, we can proceed with next step regarding management of his fistula. I discussed the options of permanent seton vs trial of seton removal vs LIFT procedure. I explained the failure rate of LIFT in setting of Crohn's but patient would like to pursue this once he is medically optimized. Follow up in 4-6 weeks to ensure perianal wound is healing Patient will like to establish care with GI at [facility] referral. Also wants nutrition referral for diet counseling All questions were answered. Medical Decision Making: Data Reviewed: Tests AND Documents Reviewed/ordered: Review of prior notes from recent hospitalization Review of prior operative reports Review of Labs: CBC, BMP Review of Procedures / Tests: Colonoscopy (more content not included)... [facility] 02-01-2022 Evaluation + Plan note Future Scheduled TestsSedimentation Rate Automated 02/01/22Quantiferon-TB Plus (Client Incubated) 02/01/22Vitamin D 25 Hydroxy 02/01/22CBC w/ Auto Diff 02/01/22Comprehensive Metabolic Panel 02/01/22Hepatitis B Surface Antibody 02/01/22Hepatitis B Surface Antigen 02/01/22 [facility] 01-22-2022 Hospital Discharge instructions Follow Up Care 01/22/2022 08:32:14 With:DINORA HOLLIDAY, CHRISTIANO Leyva, [facility] Address: [facility] [address] [place] [address]- When:3 months [facility] Evaluation + Plan note Future Appointments Appointment Date:02/14/2022 11:00:00 AM Scheduled Provider: Location:[facility] Surgical Services Appointment Type:Surgery PAT COVID Testing Future Scheduled TestsSedimentation Rate Automated 02/01/22Quantiferon-TB Plus (Client Incubated) 02/01/22Vitamin D 25 Hydroxy 02/01/22CBC w/ Auto Diff 02/01/22Comprehensive Metabolic Panel 02/01/22Hepatitis B Surface Antibody 02/01/22Hepatitis B Surface Antigen 02/01/22 [facility] Evaluation note Diagnosis Dietary counseling and surveillance- Primary Dietary surveillance and counseling Crohn's disease with fistula, unspecified gastrointestinal tract location (HCC) Crohn's disease with fistula, unspecified gastrointestinal tract location (HCC)- Primary [facility] Diagnosis Crohn's disease of small intestine with complication (HCC)- Primary Regional enteritis of small intestine Crohn's disease with fistula, unspecified gastrointestinal tract location (HCC) Anxiety Anxiety state, unspecified Depression, unspecified depression type Crohn's disease of small and large intestines with complication (HCC) [facility] Diagnosis MEGAN (generalized anxiety disorder) ([facility]/HCC)- Primary Generalized anxiety disorder URTI (acute upper respiratory infection) Acute upper respiratory infections of unspecified site documented in [facility]* Diagnosis NO SHOW- Primary Anxiety Anxiety state, unspecified Depression, unspecified depression type [facility] Diagnosis Crohn's disease with fistula, unspecified gastrointestinal tract location (HCC)- Primary Depression, unspecified depression type [facility] Narrative No data available for this section [facility] Hospital Discharge instructions No data available for this section [facility] No data available for this section [facility] Summary Purpose Family History No Family History Records Found No data available for this section No data available for this section No Family History Records FoundNo Family History Records FoundNo Family History Records Found Advance Directives No Advanced Directives Records FoundNo Advanced Directives Records FoundNo Advanced Directives Records FoundNo Advanced Directives Records Found Reason for Referral Specialty Diagnoses / Procedures Referred By Stanislaw trinidad Referred To Contact Diagnoses Anxiety Depression, unspecified depression type Procedures CONSULT TO [facility] OFFICE/OUTPATIENT [facility] 60 MINUTES [place] [address] [place], [place] [id number] Niurka Ordaz, PhD [address] [id number] Referral ID Status Reason Start Date Expiration Date Visits Requested Visits Authorized [id number] Authorized PCP Requested Referral 07/05/2023 07/04/2024 1 1 Specialty Diagnoses / Procedures Referred By Stanislaw t Referred To Contact [facility] Diagnoses Crohn's disease with fistula, unspecified gastrointestinal tract location (HCC) Procedures EGD DIAGNOSTIC ESOPHAGOGASTRODUODENOSCOPY TRANSORAL DIAGNOST[place] [address] [place] [address] [place] [address] Referral ID Status Reason Start Date Expiration Date Visits Requested Visits Authorized [id number] Pending Review Auto-Generat ed Referral 07/05/2023 07/05/2024 1 1 Specialty Diagnoses / Procedures Referred By Stanislaw t Referred To Contact [facility] Diagnoses Crohn's disease with fistula, unspecified gastrointestinal tract location (HCC) Crohn's disease of small intestine with complication (HCC) Procedures COLONOSCOPY DIAGNOSTIC COLONOSCOPY FLX DX W/COLLJ SPEC WHEN [place]FR[place] [address] [place] [address] [place] [address] Referral ID Status Reason Start Date Expiration Date Visits Requested Visits Authorized [id number] Pending Review Auto-Generat ed Referral 07/05/2023 07/05/2024 1 1 Specialty Diagnoses / Procedures Referred By Marlenac t Referred To Contact [facility] Diagnoses Crohn's disease of small and large intestines with complication (HCC) Procedures MRI PEL ENTEROG WO/W IVCON MRI PELVIS W/O & W/CONTRAST MATERIAL Sylvia Canchola MD, PhD [address] [id number] Mr Imaging [facility] Referral ID Status Reason Start Date Expiration Date Visits Requested Visits Authorized [id number] Pending Review Auto-Generat ed Referral 07/05/2023 08/03/2024 1 1 Specialty Diagnoses / Procedures Referred By Contac t Referred To Contact [facility] Diagnoses Crohn's disease of small intestine with complication (HCC) Procedures MRI ABD ENTEROG WO/W IVCON MRI ABDOMEN W/O & W/CONTRAST MATERIAL MRI PELVIS W/O & W/CONTRAST MATERIAL Sylvia Canchola MD, PhD [address] [place] [address] Mr Imaging [facility]95 Referral ID Status Reason Start Date Expiration Date Visits Requested Visits Authorized [id number] Pending Review Auto-Generat ed Referral 07/05/2023 08/03/2024 1 1 Additional Source Comments (unrecognized sect ion and content) No Status Records FoundNo Status Records FoundNo Status Records FoundNo Status Records Found INFORMATION SOURCE (unrecogn ized section and content) DATE CREATED AUTHOR 08/31/2021 [facility] DATE CREATED AUTHOR AUTHOR'S ORGANIZ ATION 07/09/2023 [facility] DATE CREATED AUTHOR AUTHOR'S ORGANIZ ATION 08/26/2023 [facility] DATE CREATED AUTHOR AUTHOR'S ORGANIZ ATION 01/31/2024 [facility] Patient Care team informatio n (unrecognized section and content) Securities Counselor Relationship Specialty Start Date End Date Shaikh Mejia MD [address] [place] [id number] PCP - General Internal Medicine 07/01/23 Personnel Name: SHAIKH MEJIA MD Address: Address: [address] [place] [address] [place] Source Comments (unrecognize d section and content) In the event this informatio n is protected by the Federal Confidentiality of Alcohol and Drug Abuse Patient Records regulations: The Federal rules restrict any use of the information to criminally investigate or prosecute any alcohol or drug abuse patient.[facility] the event this information is protected by the Federal Confidentiality of Alcohol and Drug Abuse Patient Records regulations: The Federal rules restrict any use of the information to criminally investigate or prosecute any alcohol or drug abuse patient.[facility] Center[facility] the event this information is protected by the Federal Confidentiality of Alcohol and Drug Abuse Patient Records regulations: The Federal rules restrict any use of the information to criminally investigate or prosecute any alcohol or drug abuse patient.[facility] Center[facility] the event this information is protected by the Federal Confidentiality of Alcohol and Drug Abuse Patient Records regulations: The Federal rules restrict any use of the information to criminally investigate or prosecute any alcohol or drug abuse patient.[facility] Center[facility] the event this information is protected by the Federal Confidentiality of Alcohol and Drug Abuse Patient Records regulations: The Federal rules restrict any use of the information to criminally investigate or prosecute any alcohol or drug abuse patient.[facility] CenterIn the event this information is protected by the Federal Confidentiality of Alcohol and Drug Abuse Patient Records regulations: The Federal rules restrict any use of the information to criminally investigate or prosecute any alcohol or drug abuse patient.[facility] CenterIn the event this information is protected by the Federal Confidentiality of Alcohol and Drug Abuse Patient Records regulations: The Federal rules restrict any use of the information to criminally investigate or prosecute any alcohol or drug abuse patient.[facility] CenterIn the event this information is protected by the Federal Confidentiality of Alcohol and Drug Abuse Patient Records regulations: The Federal rules restrict any use of the information to criminally investigate or prosecute any alcohol or drug abuse patient.[facility] CenterIn the event this information is protected by the Federal Confidentiality of Alcohol and Drug Abuse Patient Records regulations: The Federal rules restrict any use of the information to criminally investigate or prosecute any alcohol or drug abuse patient.[facility] Reason for Visit (unrecogniz ed section and content) Reason Comments Nutrition Counseling Specialty Diagnoses / Procedures Referred By Contac t Referred To Contact Nutrition / WELLNESS Diagnoses Crohn's disease with fistula, unspecified gastrointestinal tract location (HCC) Procedures CONSULT TO NUTRITION WELLNESS MEDICAL NUTRITION ASSMT&IVNTJ INDIV EACH 15 PA MEDICAL NUTRITION ASSMT&IVNTJ INDIV EACH 15 PA MEDICAL NUTRITION ASSMT&IVNTJ INDIV EACH 15 PA MEDICAL NUTRITION ASSMT&IVNTJ INDIV EACH 15 [place] [address] [place] [id number] Alexis Mejia [address] [place] [address] Referral ID Status Reason Start Date Expiration Date Visits Requested Visits Authorized [id number] Authorized PCP Requested Referral Benefit Check 06/02/2023 10 10 Reason Comments New Patient Crohn's Specialty Diagnoses / Procedures Referred By Contac t Referred To Contact Gastroenterology Diagnoses Crohn's disease with fistula, unspecified gastrointestinal tract location (HCC) Procedures CONSULT TO GASTROENTEROLOGY OFFICE/OUTPATIENT NEW HIGH MDM 60-[place] [address] [place] [address] Referral ID Status Reason Start Date Expiration Date V isits Requested Visits Authorized [id number] Closed PCP Requested Referral 04/30/2023 04/29/2024 1 1 Reason Comments URI Anxiety Reason Comments No Show Specialty Diagnoses / Procedures Referred By Contac t Referred To Contact Diagnoses Anxiety Depression, unspecified depression type Procedures CONSULT TO [facility] OFFICE/OUTPATIENT [facility] 60 MINUTES Sylvia Canchola MD, PhD [address] [place] [address] Niurka Ordaz, PhD [address] [place] [address] Referral ID Status Reason Start Date Expiration Date V isits Requested Visits Authorized [id number] Closed PCP Requested Referral 07/05/2023 07/04/2024 1 1 Reason Comments Crohns FOR RECORDS PERTAINING TO PATIENTS WHO ARE OR HAVE BEEN ENROLLED IN A CHEMICAL DEPENDENCY/SUBSTANCEABUSE PROGRAM, SOME INFORMATION MAY BE OMITTED. This clinical summary was aggregated from multiple sources. Caution should be exercised in using it in the provision of clinical care. This summary normalizes information from multiple sources, and as a consequence, information in this document may materially change the coding, format and clinical context of patient data. In addition, data may be omitted in some cases. CLINICAL DECISIONS SHOULD BE BASED ON THE PRIMARY CLINICAL RECORDS. [facility]. provides no warranty or guarantee of the accuracy or completeness of information in this document.
[2024-02-13 18:15] VITALS: BP 144/84; PULSE 94; TEMP 36.9; O2SAT 97; BMI 23.0
--- NOTE | 2024-02-13 18:38 | XR_ITS ---
The [address] [address] Patient Name: AMANDEEP MARTÍNEZ MRN: [id number] date: 2000 Sex: M Assigned Patient Location: ER Current Patient Location: ER Accession/Order Number: [id number] Exam Date: 02/13/2024 18:20 Report Date: 02/13/2024 18:58 At the request of: ALON PARKS Procedure: XR shoulder RT min 2V IMAGES REVIEWED: XR shoulder RT min 2V COMPARISON: None available. CLINICAL INDICATION: pain FINDINGS/IMPRESSION: Unremarkable radiographic appearance of the right shoulder. Electronically authenticated by: MILLA CALLES Date: 02/13/2024 18:58
--- NOTE | 2024-02-13 19:12 | ED_ITS ---
HPI HPI - General Adult General Stated complaint: UE INJURY Time Seen by Provider: 02/13/24 18:51 Source: patient Mode of arrival: walk-in Limitations: no limitations History of Present Illness HPI narrative: 23-year-old male presents for chief complaint of right shoulder pain and tenderness. Patient denies any known injury or trauma. He states he is felt a weakness over the last several weeks today it was worse. He has difficulty putting his arm up above his head or lifting above 180 degrees. He is right- hand dominant. He denies any known injury or trauma. He is otherwise healthy no acute distress. Related Data Previous Rx's ?Medication ?Instructions ?Recorded levofloxacin 750 mg tablet 750 mg PO DAILY 7 days #7 tabs 04/11/23 oxycodone 5 mg tablet 5 mg PO Q8H PRN pain #10 tabs 04/11/23 prednisone 20 mg tablet 40 mg (2 x 20 mg) PO DAILY 7 days 02/13/24 #14 tabs Allergies Allergy/AdvReac Type Severity Reaction Status Date / Time No Known Drug Allergies Allergy Verified 04/06/23 16:33 Opioid HPI Opioid Management Most Recent Opioid Data: Last Pain Scale 3 04/18/23 12:50 Review of Systems ROS Narrative All Systems are negative except as noted/marked.All systems reviewed and otherwise negative PFSH PFSH Medical History Crohn's disease ?K50.90 - Crohn's disease, unspecified, without complications (ICD-10) Family History Grandmother Family history of myocardial infarction Social History Smoking status: Current every day smoker Do you use any of these nicotine containing products: vaping products Non-prescribed substance use: cannabis (any form) Previous occupational history: [employer] Highest level of school completed/degree received: high school graduate Are you now , , , , never or living with a partner: never In a typical week, how many times do you talk on the telephone with family, friends, or neighbors: 3 or more times per week How often do you get together with friends or relatives: 3 or more times per week How often do you attend sabianist or zoroastrian services: never Do you belong to any clubs or organizations such as sabianist groups unions, fraternal or athletic groups, or school groups: no Total score: 1 Score interpretation: A score of less than or equal to 1 indicates the most socially isolated. Little interest or pleasure in doing things: more than half the days Feeling down, depressed, or hopeless: more than half the days Feel stressed/tense/nervous/anxious/difficulty sleeping: rather much Life stressors: recent of family or friend Life stressor details: loss of step dad, mom, grandparent since 2018 Do you think of yourself as: straight/heterosexual Gender Identity: male Exam Narrative Exam Narrative: Nurses note and vital signs reviewed and patient is not hypoxic. General: The patient appears well and in no apparent distress. Patient is resting comfortably on cart. Skin: Warm, dry, no pallor noted. There is no rash noted. Head: Normocephalic, atraumatic Eye: Normal conjunctiva, no drainage, EOMI. PERRL Ears, Nose, Mouth, and Throat: oral mucosa is moist. Nares patent. Mouth without vesicles. Ear canals patent. Tm's without Erythema Musculoskeletal: Tenderness, no upper extremity weakness on examination but difficulty elevating above his head, remainder of extremities are unremarkable. Neurological: A&O x4, normal speech Psychiatric: Cooperative Constitutional Vital Signs, click to edit/add: Last Vital Signs Temp 98.5 F 02/13/24 18:15 Pulse 94 H 02/13/24 18:15 Resp 16 02/13/24 18:15 BP 144/84 H 02/13/24 18:15 Pulse Ox 97 02/13/24 18:15 O2 Del Method Room Air 02/13/24 18:15 Course Vital Signs Vital signs: Vital Signs Temperature 98.5 F 02/13/24 18:15 Pulse Rate 94 H 02/13/24 18:15 Respiratory Rate 16 02/13/24 18:15 Blood Pressure 144/84 H 02/13/24 18:15 Pulse Oximetry 97 02/13/24 18:15 Oxygen Delivery Method Room Air 02/13/24 18:15 Temperature 98.5 F 02/13/24 18:15 Pulse Rate 94 H 02/13/24 18:15 Respiratory Rate 16 02/13/24 18:15 Blood Pressure 144/84 H 02/13/24 18:15 Pulse Oximetry 97 02/13/24 18:15 Oxygen Delivery Method Room Air 02/13/24 18:15 Medical Decision Making MDM Narrative Medical decision making narrative: Patient presents with chief complaint of right shoulder tenderness denies any known injury or trauma. Patient's examination is consistent with a probable tendinitis. Patient be discharged home with short course of steroids. X-ray shows no acute deformity or dislocation. Right hand dominant. He will be able to be discharged home follow-up with orthopedics. Differential Diagnosis Differential Diagnosis: Sprain, tendinitis, Medical Records Medical records reviewed: Yes I reviewed the patient's medical records Imaging Data shoulder: My impression: MRN: [facility]:[id number] date: 2000 Sex: M Assigned Patient Location: ER Current Patient Location: ER Accession/Order Number: [id number] Exam Date: 02/13/2024 18:20 Report Date: 02/13/2024 18:58 At the request of: ALON PARKS Procedure: XR shoulder RT min 2V IMAGES REVIEWED: XR shoulder RT min 2V COMPARISON: None available. CLINICAL INDICATION: pain FINDINGS/IMPRESSION: Discharge Plan Discharge Clinical Impression: Shoulder sprain Patient Disposition: Home, Self-Care Time of Disposition Decision: 19:09 Condition: Good Prescriptions / Home Meds: New prednisone 20 mg tablet 40 mg PO DAILY 7 Days Qty: 14 0RF No Action levofloxacin 750 mg tablet 750 mg PO DAILY 7 Days Qty: 7 0RF oxycodone 5 mg tablet 5 mg PO Q8H PRN (Reason: pain) Qty: 10 0RF Print Language: Kinyarwanda Instructions: Shoulder Sprain (ED) Referrals: Physician,Non-Staff, [Primary Care Provider] - 1 week Gera Butts MD [Physician] - 1 week (call for appointment)
== END 2024-02-13 19:22 | disposition home or self-care (01) ==
PROVIDERS: Emergency Provider Emergency Medicine
DX: S43.401A Unspecified sprain of right shoulder joint, initial encounter (principal); F17.290 Nicotine dependence, other tobacco product, uncomplicated; Z63.4 Disappearance and death of family member; X58.XXXA Exposure to other specified factors, initial encounter
CPT/HCPCS: 73030; 99283